=== PATIENT | female | born 1965 | race Caucasian/White ===

== ENCOUNTER 2019-10-19 10:05 | Outpatient (REF) | payer BC, SELFPAY ==
[2019-10-19 21:58] LABS: Anion Gap 9.4 mmol/L (3-11); BUN 16 mg/dL (7-18); CO2 26.6 mmol/L (21.0-32.0); CREATININE 1.11 mg/dL (0.55-1.02); Calcium 9.5 mg/dL (8.5-10.1); Chloride 106 mmol/L (98-107); Estimated GFR 50.85 (mL/min/1.73m2); Glucose 107 mg/dL (74-106); Magnesium 1.9 mg/dL (1.8-2.4); Potassium 4.3 mmol/L (3.5-5.1); Sodium 142 mmol/L (136-145)
[2019-10-19 23:28] LABS: Lithium 0.44 mmol/L (0.60-1.20)
[2019-10-21 19:04] LABS: TSH (W/Ref FT4) 0.92 uIU/mL (0.36-3.74)
== END 2019-10-19 10:25 ==
LOC: NCHCN 10:05
PROVIDERS: PCP Family Medicine; Visit Provider Nurse Practitioner Family
DX: N18.9 Chronic kidney disease, unspecified (principal); F31.9 Bipolar disorder, unspecified; Z51.81 Encounter for therapeutic drug level monitoring; Z13.29 Encounter for screening for other suspected endocrine disorder
CPT/HCPCS: 80048; 80178; 83735; 84443

== ENCOUNTER 2020-01-25 10:30 | Outpatient (REF) | payer BC, SELFPAY ==
[2020-01-25 21:33] LABS: Abs Immature Grans 0.01 k/cumm (0.0-0.09); Absolute Basophil Count 0.02 k/cumm (0.0-0.2); Absolute Eosinophil Count 0.17 k/cumm (0.0-0.7); Absolute Lymphocyte Count 1.73 k/cumm (1.2-3.4); Absolute Monocyte Count 0.45 k/cumm (0.11-0.7); Absolute Neutrophil Count 2.97 k/cumm (1.2-6.7); Basophils % 0.4; Eosinophils % 3.2; HCT 38.7 % (36.0-46.0); Immature Grans % 0.2 %; Lymphocytes % 32.3; Mean Corp. HGB Concentration 33.6 g/dL (32.0-36.0); Mean Corpuscular Hemoglobin 30.5 pg (27.0-33.0); Mean Corpuscular Volume 90.8 fL (80-95); Mean Platelet Volume 10.8 fL (8.0-11.0); Monocytes % 8.4; Neutrophils % 55.5; Platelet Count 238 x1000/uL (130-400); RBC 4.26 m/cumm (4.00-5.20); RBC Distribution Width 12.7 % (11.7-14.6); White Blood Cell Count 5.35 k/cumm (4.4-10.8)
[2020-01-25 21:58] LABS: Lithium 0.37 mmol/L (0.60-1.20)
[2020-01-25 22:01] LABS: Albumin 3.7 g/dL (3.4-5.0); Anion Gap 9.3 mmol/L (3-11); BUN 17 mg/dL (7-18); CO2 26.7 mmol/L (21.0-32.0); CREATININE 1.11 mg/dL (0.55-1.02); Calcium 8.4 mg/dL (8.5-10.1); Chloride 106 mmol/L (98-107); Estimated GFR 50.85 (mL/min/1.73m2); Glucose 84 mg/dL (74-106); PHOSPHORUS 3.6 mg/dL (2.6-4.7); Sodium 142 mmol/L (136-145)
== END 2020-01-25 10:50 ==
LOC: NCHCN 10:30
PROVIDERS: PCP Family Medicine; Visit Provider Nurse Practitioner Family
DX: F31.74 Bipolar disorder, in full remission, most recent episode manic (principal); R94.4 Abnormal results of kidney function studies; Z51.81 Encounter for therapeutic drug level monitoring
CPT/HCPCS: 80069; 80178; 85025

== ENCOUNTER 2022-01-03 11:08 | Outpatient (REF) | payer BC, SELFPAY ==
--- NOTE | 2022-01-03 14:00 | PAPFT_PTH ---
PATIENT: Jenn Borrero LOC: [facility] U#:[id number] AGE/SX: 56/F ROOM: RE01/03/[address]: Medina Palafox : 1965 BED: DIS: 01/03/2022 SPEC #: [id number] RECD: 01/04/22 17:01 STATUS: SONYA WALSH #: [id number] JAMES: 01/03/22 14:[address]: Medina Palafox DEPT: [facility] Cytology RECD BY: Nae Allen ENTERED: 01/04/22 17:02 SP TYPE: PAPFT OTHR DR: Ana Laura Rodriguez Tissues: 1 - CX/ENDOCX FOR PAP SMEARS Procedures: PAP THIN PREP/UVM Screening HPV DNA PROBE Comments: [id number]
== END 2022-01-03 11:09 | disposition home or self-care (01) ==
LOC: LBN 11:08
PROVIDERS: PCP Family Medicine; Visit Provider Naturopath
DX: Z12.4 Encounter for screening for malignant neoplasm of cervix (principal); Z11.51 Encounter for screening for human papillomavirus (HPV)
CPT/HCPCS: 88142; 87624

== ENCOUNTER 2023-02-26 10:40 | Outpatient (REF) | payer BC, SELFPAY | END 2023-02-26 10:41 | disposition home or self-care (01) | LOC: LBN 10:40 | PROVIDERS: PCP Family Medicine; Visit Provider Obstetrics & Gynecology | DX: R30.0 Dysuria (principal) | CPT/HCPCS: 87086 ==

== ENCOUNTER 2023-08-05 13:21 | Outpatient (REF) | payer BC, SELFPAY ==
[2023-08-05 15:47] LABS: Abs Immature Grans 0.01 10^3/uL (0.0-0.06); Absolute Basophil Count 0.05 10^3/uL (0.0-0.2); Absolute Eosinophil Count 0.13 10^3/uL (0.0-0.7); Absolute Lymphocyte Count 1.32 10^3/uL (1.2-3.4); Absolute Monocyte Count 0.34 10^3/uL (0.1-0.8); Absolute Neutrophil Count 3.59 10^3/uL (1.2-6.7); Basophils % 0.9; Eosinophils % 2.4; HCT 37.1 % (36.0-46.0); HGB 11.8 g/dL (11.2-15.7); Immature Grans % 0.2; Lymphocytes % 24.3; MCH 29.4 pg (27.0-33.0); MCHC 31.8 % (32.0-36.0); MCV 93 fL (80-95); MPV 10.4 fL (8.0-11.0); Monocytes % 6.3; Neutrophils % 65.9; Platelet Count 255 10^3/uL (130-400); RBC 4.01 10^6/uL (3.93-5.22); RDW 12.4 % (11.7-14.6); RDW-SD 42.5 fL; WBC 5.44 10^3/uL (4.4-10.8)
[2023-08-05 16:13] LABS: ALT 30 U/L (14-59); AST 26 U/L (15-37); Albumin 3.8 g/dL (3.4-5.0); Alkaline Phosphatase 94 U/L (46-116); Anion Gap 5.3 mmol/L (3-11); BUN 16 mg/dL (7-18); Bilirubin, Total 0.4 mg/dL (0.2-1.0); CO2 28.7 mmol/L (21.0-32.0); Calcium 9.9 mg/dL (8.5-10.1); Calculated LDL 125 mg/dL (<100); Chloride 103 mmol/L (98-107); Cholesterol 226 mg/dL (<200); Estimated GFR 64.49 (mL/min/1.73m2); Glucose 93 mg/dL (74-106); HDL Cholesterol 88 mg/dL (40-60); Potassium 4.6 mmol/L (3.5-5.1); Sodium 137 mmol/L (136-145); TSH (W/Ref FT4) 0.79 uIU/mL (0.36-3.74); Total Protein 7.5 g/dL (6.4-8.2); Triglyceride 66 mg/dL (<150)
[2023-08-05 16:14] LABS: Lithium 0.3 mmol/l (0.6-1.2)
== END 2023-08-05 13:22 | disposition home or self-care (01) ==
LOC: NCHCN 13:21
PROVIDERS: PCP Family Medicine; Visit Provider Family Medicine
DX: F31.9 Bipolar disorder, unspecified (principal); R53.83 Other fatigue; Z51.81 Encounter for therapeutic drug level monitoring; Z79.899 Other long term (current) drug therapy; R79.89 Other specified abnormal findings of blood chemistry
CPT/HCPCS: 80053; 80061; 80178; 84443; 85025

== ENCOUNTER 2024-02-11 14:38 | Outpatient (REF) | payer BC, SELFPAY ==
[2024-02-11 15:42] LABS: Lithium 0.7 mmol/l (0.6-1.2)
== END 2024-02-11 14:39 | disposition home or self-care (01) ==
LOC: NCHCN 14:38
PROVIDERS: PCP Family Medicine; Referring Provider Family Medicine; Visit Provider Family Medicine
DX: F31.9 Bipolar disorder, unspecified (principal); Z79.899 Other long term (current) drug therapy
CPT/HCPCS: 80053; 80061; 82306; 80178; 82607; 83036

== ENCOUNTER 2024-03-09 10:28 | Outpatient (REF) | payer BC, SELFPAY ==
[2024-03-09 15:25] LABS: Anion Gap 8.7 mmol/L (3-11); BUN 20 mg/dL (7-18); CO2 25.3 mmol/L (21.0-32.0); CREATININE 1.2 mg/dL (0.55-1.02); Calcium 9.9 mg/dL (8.5-10.1); Chloride 104 mmol/L (98-107); Estimated GFR 51.82 (mL/min/1.73m2); Glucose 90 mg/dL (74-106); Potassium 3.9 mmol/L (3.5-5.1); Sodium 138 mmol/L (136-145)
== END 2024-03-09 10:29 | disposition home or self-care (01) ==
LOC: NCHCN 10:28
PROVIDERS: PCP Family Medicine; Visit Provider Family Medicine
DX: N18.9 Chronic kidney disease, unspecified (principal)
CPT/HCPCS: 80048

== ENCOUNTER 2024-04-08 15:46 | Outpatient (REF) | payer BC, SELFPAY ==
[2024-04-08 21:27] LABS: Albumin 3.8 g/dL (3.4-5.0); Anion Gap 9.7 mmol/L (3-11); BUN 29 mg/dL (7-18); CO2 25.3 mmol/L (21.0-32.0); CREATININE 1.1 mg/dL (0.55-1.02); Calcium 9.4 mg/dL (8.5-10.1); Chloride 107 mmol/L (98-107); Estimated GFR 57.52 (mL/min/1.73m2); Glucose 95 mg/dL (74-106); Potassium 4.1 mmol/L (3.5-5.1); Sodium 142 mmol/L (136-145)
[2024-04-08 22:04] LABS: PHOSPHORUS 2.9 mg/dL (2.6-4.7)
== END 2024-04-08 15:47 | disposition home or self-care (01) ==
LOC: NCHCN 15:46
PROVIDERS: PCP Family Medicine; Visit Provider Family Medicine
DX: F31.9 Bipolar disorder, unspecified (principal)
CPT/HCPCS: 80069

== ENCOUNTER 2024-04-20 08:32 | Outpatient (REF) | payer BC, SELFPAY ==
[2024-04-20 14:28] LABS: Lithium 0.4 mmol/L (0.6-1.2)
[2024-04-20 14:31] LABS: BUN 20 mg/dL (7-18); CREATININE 1.2 mg/dL (0.55-1.02); Chloride 105 mmol/L (98-107); Estimated GFR 51.82 (mL/min/1.73m2); Glucose 93 mg/dL (74-106); Potassium 3.9 mmol/L (3.5-5.1); Sodium 141 mmol/L (136-145)
== END 2024-04-20 08:33 | disposition home or self-care (01) ==
LOC: NCHCN 08:32
PROVIDERS: PCP Family Medicine; Visit Provider Family Medicine
DX: Z51.81 Encounter for therapeutic drug level monitoring (principal); N18.9 Chronic kidney disease, unspecified
CPT/HCPCS: 80048; 80178

== ENCOUNTER 2024-06-11 22:10 | Outpatient (REF) | payer BC, SELFPAY ==
[2024-06-11 15:06] LABS: Lithium 0.5 mmol/L (0.6-1.2)
[2024-06-11 15:18] LABS: Anion Gap 8.2 mmol/L (3-11); BUN 15 mg/dL (7-18); CO2 27.8 mmol/L (21.0-32.0); CREATININE 1.2 mg/dL (0.55-1.02); Calcium 10.1 mg/dL (8.5-10.1); Chloride 108 mmol/L (98-107); Estimated GFR 51.82 (mL/min/1.73m2); Glucose 98 mg/dL (74-106); Sodium 144 mmol/L (136-145)
== END 2024-06-11 22:11 | disposition home or self-care (01) ==
LOC: NCHCN 22:10
PROVIDERS: PCP Family Medicine; Visit Provider Family Medicine
DX: F31.9 Bipolar disorder, unspecified (principal); R53.83 Other fatigue; N18.9 Chronic kidney disease, unspecified
CPT/HCPCS: 80048; 80178; 84443

== ENCOUNTER 2024-07-08 21:11 | Outpatient (REF) | payer BC, SELFPAY ==
[2024-07-08 21:43] LABS: Anion Gap 7.4 mmol/L (3-11); BUN 19 mg/dL (7-18); CO2 29.6 mmol/L (21.0-32.0); CREATININE 1.3 mg/dL (0.55-1.02); Calcium 10.4 mg/dL (8.5-10.1); Chloride 106 mmol/L (98-107); Estimated GFR 47.08 (mL/min/1.73m2); Glucose 63 mg/dL (74-106); Potassium 3.9 mmol/L (3.5-5.1); Sodium 143 mmol/L (136-145)
[2024-07-08 21:49] LABS: Lithium 0.7 mmol/L (0.6-1.2)
== END 2024-07-08 21:12 | disposition home or self-care (01) ==
LOC: NCHCN 21:11
PROVIDERS: PCP Family Medicine; Visit Provider Family Medicine
DX: F31.9 Bipolar disorder, unspecified (principal); Z79.899 Other long term (current) drug therapy; Z51.81 Encounter for therapeutic drug level monitoring
CPT/HCPCS: 80048; 80178

== ENCOUNTER 2024-07-26 12:24 | Outpatient (REF) | payer BC, SELFPAY ==
[2024-07-26 14:45] LABS: Anion Gap 6.8 mmol/L (3-11); BUN 15 mg/dL (7-18); CO2 27.2 mmol/L (21.0-32.0); CREATININE 1.3 mg/dL (0.55-1.02); Calcium 9.9 mg/dL (8.5-10.1); Chloride 107 mmol/L (98-107); Estimated GFR 46.78 (mL/min/1.73m2); Glucose 98 mg/dL (74-106); Potassium 3.9 mmol/L (3.5-5.1); Sodium 141 mmol/L (136-145)
== END 2024-07-26 12:25 | disposition home or self-care (01) ==
LOC: NCHCN 12:24
PROVIDERS: PCP Family Medicine; Visit Provider Family Medicine
DX: N18.9 Chronic kidney disease, unspecified (principal)
CPT/HCPCS: 80048

== ENCOUNTER 2024-11-17 12:48 | Outpatient (REF) | payer BC, SELFPAY ==
--- OUTSIDE RECORDS SUMMARY | 2024-11-17 12:49 | XMS_ITS | Clinical Summary ---
Author Organization [facility] Address [facility] [place] [address] Care Team Providers Care Patrol Sergeant [employer] Name Role Phone Maria Luisa Valerio MD Primary Care Provider [phone] Allergies Active Allergy Reactions Criticality Noted Date Comments Latex, Natural Rubber 06/26/2023 Medications Medication Sig Dispensed Refills Start Date End Date Status lithium 300 mg capsule Take 300 mg by mouth once. Once a day Active cholecalciferol, Vitamin D3, (Vitamin D3) 50 mcg (2,000 unit) tablet Take by mouth daily. Active magnesium 250 mg tablet Take by mouth daily as needed. Active lactobacillus rhamnosus, GG, (CULTURELLE) 10 billion cell Capsule Take 1 capsule by mouth daily. Active ibuprofen (Advil) 600 mg tablet Take 1 tablet by mouth every 6 hours as needed for Pain. 30 tablet 12 07/09/2023 Active cyclobenzaprine (Flexeril) 5 mg tablet Take 1 tablet by mouth 3 times daily as needed for Muscle spasms. 5 tablet 07/10/2023 Active marijuana cigarette - medicinal use Inhale into the lungs. Active Active Problems Problem Noted Date Diagnosed Date Prolapse of female pelvic organs 07/09/2023 Uterovaginal prolapse, incomplete 04/14/2023 Bipolar disorder 04/14/2023 Arthritis 04/14/2023 Overview (04/14/2023): Back, neck, fingers Family History Medical History Relation Comments Alcohol Use Disorder Father Cerebrovascular Accident Father Heart Disease Father Hypertension Father Mental Illness Father Arthritis Mother Hyperlipidemia Mother Type 2 Diabetes Paternal Grandmother Hypertension Sister 1 Relation Status Comments Father (Age 68) Mother Alive Paternal Grandmother Sister 1 Sister 2 Alive Sister 3 Alive Social History Tobacco Use Types Packs/Day Years Used Date Smoking Tobacco: Never Smokeless Tobacco: Never Tobacco Cessation:Counseling Given: Not Answered Comments:Smokes marijuana as sleep aid Alcohol Use Standard Drinks/Week Comments Not Currently 0 (1 standard drink = 0.6 oz pur e alcohol) DH IPV Inpatient Questions Answer Date Recorded Does Anyone Try to Keep You From Having Contact with Others or Doing Things Outside Your Home? no 07/09/2023 Feels Threatened by Someone no 08/2023 Feels Unsafe at Home or Work/School no 07/09/2023 Physical Signs of Abuse Present no 07/09/2023 Sex and Gender Information Value Date Recorded Sex Assigned at Not on file Gender Identity Not on file Sexual Orientation Not on file Last Filed Vital Signs Vital Sign Reading Time Taken Comments Blood Pressure 126/83 08/21/2023 11:11 AM EDT Pulse 76 08/21/2023 11:11 AM EDT Temperature 36.1 ??C (97 ??F) 08/21/2023 11:11 AM EDT Respiratory Rate 16 07/10/2023 7:23 AM EDT Oxygen Saturation 100% 08/21/2023 11:11 AM EDT Inhaled Oxygen Concentration - - Weight 69.1 kg (152 lb 6.4 oz) 07/10/2023 6:00 A M EDT Height 160 cm (5' 2.99) 07/09/2023 1:14 PM EDT Body Mass Index 27 07/09/2023 1:14 PM EDT Plan of Treatment Health Maintenance Due Date Last Done Comments CT Colonography 1965 Colonoscopy 1965 Colorectal Cancer Screening 1965 FIT DNA 1965 FIT 1965 Sigmoidoscopy (10 year) with FIT yearly 1965 Sigmoidoscopy 1965 HIV screen 1981 Hepatitis C Screening 1981 Tetanus/Diphtheria/Pertussis Vaccines (1 - Tdap) 07/12 HPV test 1993 PAP Smear 1993 Breast Cancer Share Decision Needed 2003 Breast Cancer screening 2003 Diabetes Screening (HgbA1C or Glucose) 2003 Zoster vaccine (1 of 2) 2013 Advance Directive 2018 Covid-19 Vaccine ( - 2024-25 season) 2024 Influenza (Flu) vaccine (1 o f 1 - Influenza standard series) 08/01/2024 Advance Directives * Attempt Cardiopulmonary Resuscitation - Inpatient (Latest Code Status on File) Date Activated Date Inactivated Comments 07/09/2023 7:02 PM 07/10/2023 12:39 PM Question Answer Comments Code Status decision made by: Patient Care Teams Patrol Sergeant Sheriff[employer] Relationship Specialty Start Date End Date Maria Luisa Valerio MD [address] [place] [address] PCP - General Family Medicine 03/24/23
--- OUTSIDE RECORDS SUMMARY | 2024-11-17 12:49 | XMS_ITS | Encounter Summary ---
Author Organization [facility] Address [facility] [place] [address] Care Team Providers Care Shop Foreman Name Role Phone Maria Luisa Valerio MD Primary Care Provider [phone] Reason for Visit * Reason Comments Post Op Encounter Details Date Type Department Care Team (Late st Contact Info) Description 08/21/2023 11:20 AM EDT Office Visit Obstetrics [place] [address] Maya Lux APRN [facility] [place] [address] Post-operative state Social History Tobacco Use Types Packs/Day Years Used Date Smoking Tobacco: Never Smokeless Tobacco: Never Comments:Smokes marijuana as sleep aid Alcohol Use Standard Drinks/Week Comments Not Currently 0 (1 standard drink = 0.6 oz pur e alcohol) [facility] Inpatient Questions Answer Date Recorded Does Anyone [...] on file Sexual Orientation Not on file documented as of this encounter Last Filed Vital Signs Vital Sign Reading Time Taken Comments Blood Pressure 126/83 08/21/2023 11:11 AM EDT Pulse 76 08/21/2023 11:11 AM EDT Temperature 36.1 ??C (97 ??F) 08/21/2023 11:11 AM EDT Respiratory Rate - - Oxygen Saturation 100% 08/21/2023 11:11 AM EDT Inhaled Oxygen Concentration - - Weight - - Height - - Body Mass Index - - documented in this encounter Progress Notes * Maya Lux, BAIL BOND AGENT - 08/21/2023 11:20 AM EDT Female Pelvic Medicine and Reconstructive Surgery Post-Operative Visit Patient Active Problem List Diagnosis Date Noted Prolapse of female pelvic organs 07/09/2023 Uterovaginal prolapse, incomplete 04/14/2023 Bipolar disorder 04/14/2023 Arthritis 04/14/2023 Date of visit: 08/21/2023 Patient name: Jenn Borrero Date of surgery: 07/09/23 Procedure: Vaginal hysterectomy, bilateral salpingectomy; bilateral uterosacral ligament suspension, anterior / posterior colporrhaphy Surgeon: Dr. Archibald Pathology: Uterus and bilateral fallopian tubes (hysterectomy and bilateral salpingectomy for prolapse): 1. Uterine leiomyomas. 2. Benign inactive endometrium. 3. Benign cervix with squamous metaplasia and Nabothian cysts. 4. Bilateral benign fallopian tubes. Findings: Uterovaginal prolapse, stage 3. Normal uterus, adnexae. Adhesion at right lower uterus. Cystourethroscopy with patent ureteral orifices bilaterally, free spill of orange dye. Ureters in orthotopic position. Normal bladder, urethral mucosa. Subjective: Jenn Borrero is s/p the above procedures. Since surgery, reports she had gas pain for the first few days post-op but now feeling like everything is hunky-dory Patient has been tolerating a regular diet, denies nausea and vomiting, and has been afebrile sincesurgery. Since surgery, reports: None x Continued vaginal bleeding New pelvic related pain Abnormal vaginal discharge Burning with urination Blood in urine New prolapse symptoms since surgery Other Pain She reports no pain. Bladder Function Number of daytime voids: improved, depends on fluid intake, has some frequency but feels this is related to tea drinking Number of nocturia events: twice Urinary incontinence since surgery (y/n): for the first 1.5 weeks but then resolved If yes, [place] Incontinence Severity Index: How often do you experience urinary leakage? 0. Never 1. Less than once a month 2. A few times a month 3. A few times a week 4. Every day and/or night Value 0 How much urine do you lose each time? 0. None 1. Drops 2. Small Splashes 3. More Value 0 The Severity Index is the product of the two questions 0 - NONE 1-2 Slight 3-6 Moderate 8-9 Severe 12 Very severe SCORE: 0 If yes, leaks with: Event Presence Event Presence NONE x [place] Walking Cold Weather Running Anticipation of going to the lavatory Cough/Sneeze First morning void Lifting Running water Laughing Other Voiding Dysfunction: Symptom Presence NONE x Straining to empty Incomplete emptying Weak stream Feeling the urge to void after voiding Dribbling Changed in position Difficulty initiating a stream Bowel Function How often do you have bowel movements? Once daily Any new defecatory problems since surgery?: no - bowel movements are much improved since surgery OBJECTIVE: There were no vitals taken for this visit. The [employer] Bladder Scanner/D-Sight Bladder Scanner was used to obtain a postvoid residual to further delineate urinary symptoms. After the patient voided, 25 mL was measured as a postvoid residual. Urine dipstick shows positive for leukocytes, red blood cells. A mixer attendant is present for the examination. General: normal appearing female, pleasant mood, normal speech Abdomen: Abdomen soft, non-tender, bowel sounds normal. Back: Non-tender, without costovertebral angle or paraspinal tenderness Pelvic: Cough stress test (empty supine): neg External Genitalia: Vulva, Worley's and Bartholin glands normal, urethra without tenderness or mass Vagina: smooth, pink, suture present at apex, well approximated Discharge?: scant Cervix: surgically absent Bimanual (uterus/adnexa): no masses or tenderness POP Q Measurements: Aa -2.5 Ba -2.5 C -7 GH 2.5/2.5 PB 5/5 TVL 7.5 Ap -2.5 Bp -2.5 D X Impression: Jenn Borrero is recovering well s/p Vaginal hysterectomy, bilateral salpingectomy; bilateral uterosacral ligament suspension, anterior / posterior colporrhaphy 5RBC on urine micro at NPV, unremarkable cysto intra-op, plan UA w/micro in ~4months Plan: Activity: slowly return to activity as tolerated without restrictions Pelvic floor exercises 10 reps 2-3 times daily to maintain pelvic floor strength Return in 12 months / PRN to reassess Maya Lux APRN Division of Female Pelvic Medicine and Reconstructive Surgery * John Archibald MD - 08/21/2023 11:20 AM EDT I met with Ms. Borrero at the time of her post-operative visit with Maya Lux APRN. She is doing well overall and agrees to return in 1 year or PRN earlier if recurrent symptoms. JOHN ARCHIBALD MD documented in this encounter Plan of Treatment Not on file documented as of this encounter Procedures Procedure Name Priority Date/Time Associated Diagnosis Comments BLADDER SCANNER Routine 08/21/2023 Post-operative state POCT URINE DIPSTICK Routine 08/21/2023 Post-operative state documented in this encounter Results * Bladder Scanner (08/21/2023) Pathologist [facility] Bladder Scan (mL) 25 mL Maya Lux APRN URO PROC W/O RFL ORD ERABLES * POCT urine dipstick (08/21/2023) Pathologist [facility] POC Sp [place] 1.010 1.002 - 1.030 POC pH, UA 5.0 5.0 - 8.5 POC Leuk, UA 2+ Negative - Negative POC Nitrite, UA Neg. Negative - Negative POC Protein, UA Trace Negative - Negative mg/dL POC Glucose, UA Norm. Normal - Normal mg/dL POC Ketone, UA Neg. Negative - Negative POC Urobil, UA Norm. 0.2 - 1.0 mg/dL POC Bili, UA Neg. Negative - Negative POC Blood, UA About 50 Negative - Negative prashanth/uL Maya Lux APRN POINT OF CARE TEST O RDERABLES documented in this encounter Visit Diagnoses Diagnosis Post-operative state Other postprocedural status documented in this encounter Care Teams Shop Foreman Relationship Specialty Start Date End Date Maria Luisa Valerio MD [address] [place] [address] PCP - General Family Medicine 03/24/23 documented as of this encounter
--- OUTSIDE RECORDS SUMMARY | 2024-11-17 12:49 | XMS_ITS | Encounter Summary ---
Author Organization [facility] [place] [address] Care Team Providers Care Payroll Consultant Name Role Phone Maria Luisa Valerio MD Primary Care Provider [phone] Encounter Details Date Type Department Care Team (Latest Contact Info) Description 08/21/2023 Travel Social History Tobacco Use Types Packs/Day Years Used Date Smoking Tobacco: Never Smokeless Tobacco: Never Comments:Smokes marijuana as sleep aid Alcohol Use Standard Drinks/Week Comments Not Currently 0 (1 standard drink = 0.6 oz pur e alcohol) IPV Inpatient Questions Answer Date Recorded Does [...] on file documented as of this encounter Plan of Treatment Not on file documented as of this encounter Visit Diagnoses Not on filedocumented in this encounter Care Teams Payroll Consultant Relationship Specialty Start Date End Date Maria Luisa Valerio MD [address] [place] [address] PCP - General Family Medicine 03/24/23 documented as of this encounter
--- OUTSIDE RECORDS SUMMARY | 2024-11-17 12:49 | XMS_ITS | Encounter Summary ---
Author Organization [facility] [place] [address] Care Team Providers Care Coupon And Bond Collection Clerk Name Role Phone Maria Luisa Valerio MD Primary Care Provider [phone] Reason for Visit * Auth/Cert (Routine) Specialty Diagnoses / Procedures Referred By Lisa alvarez Referred To Contact Diagnoses Incomplete uterovaginal prolapse Uterovaginal prolapse, stage 3. Procedures PRO VAG HYST, RMV TUBE/OVARY PRO REVAGINAL PROLAPSE, UTEROSACRAL PRO COMBINED ANT/POST COLPORRHAPHY PRO SLING OPER STRES INCONTINENCE HYSTERECTOMY, VAGINAL, REMOVAL TUBE(S) & OR OVARY(S) (WRVU 15.94) COLPOPEXY, VAGINAL, INTRAPERITONEAL APPROACH (WRVU 11.66) COLPORRHAPHY ANTERIOR-POSTERIOR; INC CYSTOURETHROSCOPY (WRVU 13.25) URETHRAL SUSPENSION, SLING\FASCIA OR SYNTHETIC (WRVU 12.13) Maciej Arguello MD [facility] [address] [facility] Referral ID Status Reason Start Date Expiration Date Visits Re quested Visits Authorized [id number] 1 1 Encounter Details Date Type Department Care Team (Latest Contact Info) Description 07/09/2023 12:38 PM EDT - 07/10/2023 10:15 AM EDT Hospital Encounter [place] [address] Maciej Arguello MD [facility] [place] [address] Uterovaginal prolapse, incomplete Discharge Disposition: Home Social History Tobacco Use Types Packs/Day Years [...] Sign Reading Time Taken Comments Blood Pressure 130/84 07/10/2023 7:23 AM EDT Pulse 58 07/09/2023 8:15 PM EDT Temperature 36.9 ??C (98.4 ??F) 07/10/2023 7:23 AM ED T Respiratory Rate 16 07/10/2023 7:23 AM EDT Oxygen Saturation 99% 07/10/2023 7:23 AM EDT Inhaled Oxygen Concentration - - Weight 69.1 kg (152 lb 6.4 oz) 07/10/2023 6:00 A M EDT Height 160 cm (5' 2.99) 07/09/2023 1:14 PM EDT Body Mass Index 27 07/09/2023 1:14 PM EDT documented in this encounter Discharge Summaries * Mirna Herr MD - 07/10/2023 6:30 AM EDT Discharge Summary Patient Name: Jenn Borrero Patient Age: 57 y.o. Language: Frisian Race: White Ethnicity: Not nor Admit date: 07/09/2023 Discharge date and time: 07/10/23 Attending Physician: Maciej Arguello MD Discharge Physician: Maciej Arguello MD Follow-up Recommendations for Providers: Future Appointments Date Time Provider Department Center 08/21/2023 11:00 AM NurseJuan II RN [facility] OB 5L [facility] 08/21/2023 11:20 AM Maya Lux APRN [address] Inpatient Provider Contact Information: Please call our office at [phone] with any problems or concerns. Discharge Diagnoses (Hospital Problems) and Secondary Diagnoses (Chronic Problems): Active Hospital Problems Diagnosis Uterovaginal prolapse, incomplete Prolapse of female pelvic organs Resolved Hospital Problems No resolved problems to display. Active Non-Hospital Problems Diagnosis Bipolar disorder Arthritis Operations/Major Procedures: TVH, BS, USLS, cystoscopy, repair of cystocele and rectocele History of Presentation: Ms. Borrero is a 57 y.o. old para 2 woman who initially presents for evaluation and assessment of vaginal prolapse of 10 years' duration. She notes it is much more uncomfortable when walking, and standing upright. She tried a pessary and had a lot of vaginal discharge and found it uncomfortable. Shepresents today for vaginal hysterectomy with bilateral salpingectomy; bilateral uterosacral ligament suspension, anterior / posterior colporrhaphy Hospital Course: Jenn came in through same-day surgery. Her procedure was uncomplicated, findings were Uterovaginal prolapse, stage 3. Normal uterus, adnexae. Adhesion at right lower uterus. Cystourethroscopy with patent ureteral orifices bilaterally, free spill of orange dye. Ureters in orthotopic position. Normal bladder, urethral mucosa. EBL was 150mL. Patient stayed overnight in the hospital due to late hour of surgery and pain management. Morning of discharge, she passed her lincoln backfill trial and thecatheter was removed. She is using tylenol, ibuprofen and flexeril for pain, declines opioids. Passing all post- operative milestones appropriately on day of discharge. Follow up in clinic booked as above. Vital signs at Discharge: BP: (!) 152/92, Heart Rate: 58, Temp: 36.8 ??C (98.2 ??F), Resp: 14, BMI (Calculated): 26.91 Height: 160 cm (5' 2.99) (07/09/23 1314) Weight: 69.1 kg (152 lb 6.4 oz) (07/10/23 0600) Functional and Cognitive status: Stable and at baseline Important Studies and Lab Data: Labs: Last wbc, hgb, hct plt No results for input(s): WBC, HGB, HCT in the last 72 hours. Invalid input(s): PLT Discharge Conditions/Prognosis: Stable Discharge to: Home Updated Allergies/ADRs: Allergies Allergen Reactions Latex, Natural Rubber Immunizations Given this Hospitalization: There is no immunization history on file for this patient. Discharge Medications: Your Medications New Medications Dose Details acetaminophen 325 mg tablet Commonly known as: Tylenol Take 2 tablets by mouth every 4 hours as needed for Pain. 650 mg Quantity: 30 tablet Refills: 1 cyclobenzaprine 5 mg tablet Commonly known as: Flexeril Take 1 tablet by mouth 3 times daily as needed for Muscle spasms. 5 mg Quantity: 5 tablet Refills: 0 ibuprofen 600 mg tablet Commonly known as: Advil Take 1 tablet by mouth every 6 hours as needed for Pain. 600 mg Quantity: 30 tablet Refills: 12 polyethylene glycoL 17 gram/dose Powder Commonly known as: Miralax Take 17 g by mouth daily. 17 g Quantity: 255 g Refills: 0 senna-docusate 8.6-50 mg Tablet Commonly known as: Pericolace Take 1 tablet by mouth daily. 1 tablet Quantity: 60 tablet Refills: 11 Continued medications, unchanged Dose Details cholecalciferol (Vitamin D3) 50 mcg (2,000 unit) tablet Commonly known as: Vitamin D3 Take by mouth. Refills: 0 lactobacillus rhamnosus (GG) 10 billion cell Capsule Commonly known as: CULTURELLE Take 1 capsule by mouth daily. 1 capsule Refills: 0 lithium 300 mg capsule Take 300 mg by mouth once. Once a day 300 mg Refills: 0 magnesium 250 mg tablet Take by mouth. Refills: 0 Smoking Status at Discharge: Social History Tobacco Use Smoking Status Never Smokeless Tobacco Never Tobacco Comments Smokes marijuana as sleep aid Instructions Given to Patient at Discharge: Patient Instructions PATIENT DISCHARGE INSTRUCTIONS [facility] [employer] Department: Follow Up Appointment: Please call the above number to schedule a follow up appointment in clinic if you do not already have one scheduled when you leave the hospital. Future Appointments Date Time Provider Department Center 08/21/2023 11:00 AM NurseJuan II, RN [facility] 08/21/2023 11:20 AM Maya Lux APRN [address] Call your doctor if you develop: --A fever over 101 degrees --Severe pain --Heavy vaginal bleeding --Increasing pain, redness, or discharge at your incision --It is normal to have light spotting from the vagina for up to 6 weeks following hysterectomy Activity level: No heavy lifting, pushing or pulling for 6 weeks, nothing greater than 10lbs. No sexual intercourse, no tampons, nothing in the vagina for 8 weeks. Diet: You may resume your regular diet. Be sure you drink plenty of fluids. Please use celine-colace (or colace) 1-2 tablets twice daily for the entire time that you are taking pain medication to keep your bowel movements soft and regular. If you are constipated or have not had a bowel movement in 3 days, please use milk of magnesia (or miralax) as directed over the counter. Driving: Do not drive until you are off of all narcotic medications and you are not feeling pain; usually about 2 weeks. Shower/Bath: Showering is fine. No swimming or soaking for 4-6 weeks. Pain Medication: Pain medications include ibuprofen (Advil/Motrin), acetaminophen (Tylenol). Please use ibuprofen 600 mg every 6 hours with food around the clock for the next several days and then after that use it only as needed. You may take Tylenol (acetaminophen) over the counter as prescribed, 650mg every 6 hours as needed,for the first two days, you may want to schedule this, every 6 hours. Do not exceed 3000mg of Tylenol in any 24 hour period. You can take ibuprofen and Tylenol at the same time as the two medicationswork differently. General Instructions None Future Appointments and Orders Future Appointments and Orders Future Appointments Provider Department Dept Phone 08/21/2023 11:00 AM NurseJuan II, RN Obstetrics and Gynecology at [facility] Arrive at: After School Program Coordinator Area [phone] 08/21/2023 11:20 AM Maya Lux APRN Obstetrics and Gynecology at [facility] Arrive at: After School Program Coordinator Area 5L [phone] Future Orders Complete By Expires Discontinue IV or Saline Lock [[id number] Custom] As directed Process Instructions: Scheduling Instructions: Comments: IV or saline lock when patient discharged. Questions: Discharge References/Attachments None Provider Contact Information: Maria Luisa Valerio MD [phone] documented in this encounter Discharge Instructions * Patient Instructions* Ken Mcmullen MD - 07/10/2023 5:57 AM EDT PATIENT DISCHARGE INSTRUCTIONS [facility] [employer] Department: Follow Up Appointment: Please call the above number to schedule a follow up appointment in clinic if you do not already have one scheduled when you leave the hospital. Future Appointments Date Time Provider Department Center 08/21/2023 11:00 AM Nurse, Juan PAUL RN [facility] OB [facility] 08/21/2023 11:20 AM Maya Lux APRN [facility] OB [facility] Call your doctor if you develop: --A fever over 101 degrees --Severe pain --Heavy vaginal bleeding --Increasing pain, redness, or discharge at your incision --It is normal to have light spotting from the vagina for up to 6 weeks following hysterectomy Activity level: No heavy lifting, pushing or pulling for 6 weeks, nothing greater than 10lbs. No sexual intercourse, no tampons, nothing in the vagina for 8 weeks. Diet: You may resume your regular diet. Be sure you drink plenty of fluids. Please use celine-colace (or colace) 1-2 tablets twice daily for the entire time that you are taking pain medication to keep your bowel movements soft and regular. If you are constipated or have not had a bowel movement in 3 days, please use milk of magnesia (or miralax) as directed over the counter. Driving: Do not drive until you are off of all narcotic medications and you are not feeling pain; usually about 2 weeks. Shower/Bath: Showering is fine. No swimming or soaking for 4-6 weeks. Pain Medication: Pain medications include ibuprofen (Advil/Motrin), acetaminophen (Tylenol). Please use ibuprofen 600 mg every 6 hours with food around the clock for the next several days and then after that use it only as needed. You may take Tylenol (acetaminophen) over the counter as prescribed, 650mg every 6 hours as needed,for the first two days, you may want to schedule this, every 6 hours. Do not exceed 3000mg of Tylenol in any 24 hour period. You can take ibuprofen and Tylenol at the same time as the two medicationswork differently. documented in this encounter Medications at Time of Discharge Medication Sig Dispensed Refills Start Date End Date cyclobenzaprine (Flexeril) 5 mg tablet Take 1 tablet by mouth 3 times daily as needed for Muscle spasms. 5 tablet 07/10/2023 ibuprofen (Advil) 600 mg tablet Take 1 tablet by mouth every 6 hours as needed for Pain. 30 tablet 12 07/09/2023 lithium 300 mg capsule Take 300 mg by mouth once. Once a day cholecalciferol, Vitamin D3, (Vitamin D3) 50 mcg (2,000 unit) tablet Take by mouth daily. magnesium 250 mg tablet Take by mouth daily as needed. lactobacillus rhamnosus, GG, (CULTURELLE) 10 billion cell Capsule Take 1 capsule by mouth daily. acetaminophen (Tylenol) 325 mg tablet Take 2 tablets by mouth every 4 hours as needed for Pain. 30 tablet 1 07/09/2023 08/21/2023 polyethylene glycoL (Miralax) 17 gram/dose Powder Take 17 g by mouth daily. 255 g 07/09/2023 08/21/2023 senna-docusate (Pericolace) 8.6-50 mg Tablet Take 1 tablet by mouth daily. 60 tablet 11 07/09/2023 08/21/2023 documented as of this encounter Progress Notes * Nasra Grant RN - 07/10/2023 10:15 AM EDT [facility] Short Stay Unit Discharge Note All relevant discharge milestones have been met by the patent. After Visit Summary and discharge teaching reviewed with the patient. IV access has been discontinued. All personal belongings have been returned to the patient/family upon their departure from the unit. Patient has been discharged to home The patient has been discharged without VNA services. * Heike Servin - 07/10/2023 6:24 AM EDT Gynecology Progress Note ID: Jenn Borrero is a 57 y.o.woman who is post operative day #1 s/p TVH with bilateral salpingectomy; bilateral USLS, A/P repair, and cysto in the setting of stage 3 uterovaginal prolapse. 24hr Subjective Events: Jenn is doing well this morning without any acute concerns. She had some notable back pain last night that resolved well with a PRN dose of flexeril. Otherwise, her pain has been well controlled with tylenol and toradol, and she has not required any narcotics. She had some nausea overnight requiring one dose of compazine that has since improved. She is tolerating PO intake well and denies any nausea or vomiting. This morning she passed her back fill trial. She noted some pain with urination, but no difficulty urinating. She is ambulating on her own without assist or lightheadedness. Vitals: Temp: [36 ??C (96.8 ??F)-36.8 ??C (98.2 ??F)] Heart Rate: [56-77] Resp: [14-21] BP: (90-152)/(60-92) SpO2: [94 %-100 %] Heart Rate from SpO2: [57 bpm-92 bpm] In/Outs: Intake/Output Summary (Last 24 hours) at 07/10/2023 0640 Last data filed at 07/10/2023 0530 Gross per 24 hour Intake 3508 ml Output 3885 ml Net -377 ml Physical Exam: Gen: AAOx3, NAD awake and comfortable in bed Cardio: RRR, no murmurs or gallops. Pulm: CTAB, no wheezes or crackles. Abd: soft, non-distended, non-tender Ext: warm, well-perfused, no edema bilaterally. : Lincoln removed Labs: - No recent labs Assessment and Plan: Jenn Borrero is a 57 y.o. woman who is post operative day #1 s/p vaginal hysterectomy with bilateral salpingectomy; bilateral uterosacral ligament suspension, anterior / posterior colporrhaphy, and cyst in the setting of stage 3 uterovaginal prolapse. Her only complaint is some back pain, likely from surgical positioning that relieved with flexeril overnight. We will plan to send her home with some flexeril for post-op pain. Otherwise she is doing well and meeting all post-op milestones. We will plan to discharge this morning. Plan Summary: - D/C IVF - Discharge this AM - Flexeril sent to home pharmacy Pain Control: Adequate pain control with tylenol / toradol. Cardiac/Heme: Normotensive and hemodynamically stable Pulmonary: Adequate O2 sats on RA Gastrointestinal: Tolerating diet, no N/V - Regular diet - Pericolace/miralax - Zofran/ compazine prn nausea, will not go home with these Genitourinary: Adequate UOP, lincoln out after adequate backfill trial Director Of Dietary: s/p surgery for stage 3 POP, follow up outpatient in 6 weeks, post-op counseling provided Fluid/ Electrolytes: D/C LR this AM Psych: Hx of bipolar, continue home lithium MSK: PRN flexeril, sent to home pharmacy on discharge ID: afebrile, no signs of infection Prophylaxis: Incentive spirometry, OOB and ambulating on her own Disposition: Discharge home this AM Code Status: Full Code This plan was discussed with Dr. Mcmullen. Heike Servin Medical Student, MS4 Urogynecology Team 07/10/2023 * Sarah Negron MD - 07/10/2023 6:22 AM EDT Gynecology - Progress Note Jenn Borrero is a 57 y.o. woman who is POD#1 s/p TVH, BS, USLS, cysto, repair or cystocele and rectocele. Subjective: Jenn is doing very well this morning. Bothered overnight by lower back pain. This resolved with flexeril for about 3 hours and she was able to sleep. No cramping or abdominal pain. Tolerated dinner without nausea or vomiting. Ambulating without lightheadedness or dizziness. Minimal vaginal bleeding. Able to pass voiding trial. ROS negative for headache, chest pain, shortness of breath, nausea, vomiting, leg pain or swelling. Physical Exam: Last Set of Vitals and range of vitals over past 24 hours: Last value Range last 24 hrs Temperature Temp: 36.8 ??C (98.2 ??F) Temp: [36 ??C (96.8 ??F)-36.8 ??C (98.2 ??F)] Heart Rate Heart Rate: 58 Heart Rate: [56-77] Blood Pressure BP: (!) 152/92 BP: (90-152)/(60-92) Respiratory Rate Resp: 14 Resp: [14-21] SpO2 SpO2: 100 % SpO2: [94 %-100 %] Intake/Output Summary (Last 24 hours) at 07/10/2023 0622 Last data filed at 07/10/2023 0530 Gross per 24 hour Intake 3508 ml Output 3885 ml Net -377 ml I/O this shift: In: 2308 [P.O.:600; I.V.:1408] Out: 3300 [Urine:3300] UOP last recorded at 7430=[id number]/hr Body mass index is 27 kg/m??. Gen: Resting comfortably in bed. NAD. Neuro: Alert and oriented. Cardiac: RRR. No murmurs, rubs, or gallops. Pulm: CTAB. No wheezes, rales, or rhonci. Abd: soft, nontender to palpation. Extremities: No lower extremity edema or calf tenderness Laboratory (Last 24 Hours): No results for input(s): WBC, HGB, HCT, PLATELET in the last 168 hours. No results for input(s): NA, K, CL, CO2, BUN, CREATININE, MAGNESIUM, PHOS in the last 168 hours. Studies: none Assessment and Plan Jenn Borrero is a 57 y.o. woman who is POD#1 s/p TVH, BS, USLS, cysto, repair or cystocele and rectocele. Admitted overnight for pain control after late case. Recovering well in immediate postoperative period, please see systems-based assessment below. Neuro: Alert and oriented. Pain well controlled with Tylenol, Toradol, PRN Flexeril. Tylenol, toradol--> motrin Plan to send Flexeril at discharge for back pain. Cardiovascular: Vital signs WNL, hemodynamically stable. Pulmonary: Adequate spO2 on room air, no concerns GI: Tolerating normal diet without nausea or vomiting. Regular diet ordered, advance as tolerated. Pericolace, Miralax : passed backfill void trial, Lincoln catheter removed. Adequate UOP overnight. FEK: LR running @100cc/hr overnight. Discontinued this morning as she is tolerating PO. Director Of Dietary: S/p above procedures for pelvic organ prolapse. Final pathology pending. Follow up in clinic 6 weeks postoperatively. ID: Afebrile, received prophylactic antibiotics preop, no evidence of infection. Prophylaxis: SCDs while in bed Received Heparin pre-operatively Encourage ambulation Dispo: Discharge to home this morning, meting post-operative milestones. Code Status: Full Code Patient was seen by attending Dr. Arguello, attending Urogynecologist, and Dr. Negron, Fellow and the plan was formulated. Ken Mcmullen MD PGY4 07/10/23 DIVISION FEMALE PELVIC MEDICINE & RECONSTRUCTIVE SURGERY FELLOW ADDENDUM I saw Jenn Borrero today, and agree with the above note In brief, Jenn Borrero is a 57 y.o., with stage III pelvic organ prolapse who underwent uncomplicated vaginal hysterectomy with bilateral salpingectomy; bilateral uterosacral ligament suspension, anterior / posterior colporrhaphy. EBL 150. She is doing well this morning. Had lower back pain that feel like an exacerbation of her chronic pain that was relieved with flexeril overnight. Otherwise, limited pain. Able to do some stretching this morning which is helpful. Abdomen soft. TOV: 300 instilled, voided 200. Recommendations - as above - appropriate for discharge Sarah Negron MD, PGY6 Fellow, Division of Female Pelvic Medicine/Reconstructive Surgery Associated attestation - Maciej Arguello MD - 07/11/2023 8:08 AM EDT DIVISION FEMALE PELVIC MEDICINE & RECONSTRUCTIVE SURGERY STAFF NOTE Active Hospital Problems Diagnosis Uterovaginal prolapse, incomplete Prolapse of female pelvic organs Resolved Hospital Problems No resolved problems to display. Late entry. I saw Ms. Borrero today (07/10/23 6:45 am) and reviewed her history. She is Post- operative day #1, s/p vaginal hysterectomy, bilateral salpingectomy, bilateral uterosacral ligament suspension, anterior/ posterior colporrhaphy. I have reviewed Dr. Mcmullen and Migdalia's note above and agree with the history they outline. Patientis most bothered by back pain, some relief with flexeril. She has tolerated PO, ambulated and voided. I examined the patient and agree with the documented findings above. Pertinent findings include: stable vitals, afebrile. Stretching in bed, fully dressed. I agree with the diagnosis of POD day #1. The patient is meeting milestones for discharge. I agree with the plans outlined above. Estimated date of discharge: today. I reviewed discharge instructions. MACIEJ ARGUELLO MD Division of Female Pelvic Medicine & Reconstructive Surgery 1 * Percy Bond RN - 07/10/2023 5:45 AM EDT Patient arrived to unit from [facility]. Lincoln in place and draining adequately. Pain medication given with adequate relief. Tolerating regular diet. Void trial successful in AM. Lincoln remained out. Patientable to ambulate around unit with cane with no issues. Call rosenthal within reach and patient ringing appropriately. Will continue to monitor. * Ban Cali MD - 07/09/2023 11:10 PM EDT Gynecology Postoperative Progress Note ID: Jenn Borrero is an 57 y.o. woman who is post operative day #0 s/p vaginal hysterectomy with bilateral salpingectomy; bilateral uterosacral ligament suspension, anterior / posterior colporrhaphy for stage 3 uterovaginal prolapse. Intraoperative Events: -EBL 150mL -Findings: Uterovaginal prolapse, stage 3. Normal uterus, adnexae. Adhesion at right lower uterus. Cystourethroscopy with patent ureteral orifices bilaterally, free spill of orange dye. Ureters in orthotopic position. Normal bladder, urethral mucosa. Subjective: Jenn Borrero reports that her pain is well controlled with toradol and tylenol. She reports minimalnausea and has tolerated PO intake well. Denies vomiting. Her lincoln catheter remains in place draining pink-tinged urine. She has not yet ambulated. She has no complaints other than mild nausea which she states has been improving as she increases her po intake She denies chest pain, shortness of breath, fever, chills, lightheadedness, dizziness, and leg pain. She has not noticed any bleeding per vagina and has had minimal aching which is relieved by warm compress Physical Exam: Last value Range last 24 hrs Temperature Temp: 36.8 ??C (98.2 ??F) Temp: [36 ??C (96.8 ??F)-36.8 ??C (98.2 ??F)] Heart Rate Heart Rate: 58 Heart Rate: [56-77] Blood Pressure BP: (!) 152/92 BP: (90-152)/(60-92) Respiratory Rate Resp: 14 Resp: [14-21] SpO2 SpO2: 100 % SpO2: [94 %-100 %] Art BP BP (Arterial Line): -- UOP: 110 mL/ hour from 19:00 to 23:00 Physical Exam Gen: AAOx3, NAD awake and comfortable in bed Cardio: RRR, no MRG Pulm: CTAB, no wheezes or crackles. Abd: soft, non-distended, non-tender, active bowel sounds Ext: warm, well-perfused, no edema bilaterally, SCDs in place : Lincoln catheter in place draining pink tinged urine. Vaginal bleeding noted to be minimal / absent on celine-pad Assessment and Plan: Jenn Borrero is an 57 y.o. woman post operative day #0 s/p above procedure forvaginal prolapse. She has no complaints currently. Patient is meeting appropriate postoperative in the immediately postoperative phase. Plan for discharge POD#1 morning. Pain Control: adequate pain control with tylenol / toradol. -- continue to order tylenol, Toradol. Patient preferred to avoid narcotics. Cardiac/Heme: Currently normotensive and hemodynamically stable Pulmonary: Adequate o2 sats on RA Gastrointestinal: -- regular diet ordered --pericolace/miralax -- zofran/ compazine prn nausea. Genitourinary: adequate UOP -- plan backfill void trial next morning Fluid/ Electrolytes: -- LR at 100cc/hour. -- discontinue intravenous fluid when taking adequate PO Psych: # Hx of bipolar -- Continue home lithium MSK: Hx of arthritis: -- Continue home prn flexeril ID: afebrile -- no current concerns Prophylaxis: --Incentive spirometry. --SCDs. Disposition: --Anticipate discharge to home, POD#1 morning Will discuss with day team and Dr. Dragan Cali MD, PGY3 Obstetrics and Gynecology 07/10/2023 * Brooklyn Kaur RN - 07/09/2023 8:49 PM EDT Pt and patients decided patient should stay the night. Patient not ready to discharge at this time. Report given to PAZ Greer in [facility]. PAZ Barahona documented in this encounter H&P Notes * Sarah Negron MD - 07/09/2023 1:46 PM EDT Preoperative Interval H&P Patient name: Jenn Borrero Date of : 1965 Jenn Borrero is a 57 y.o. with stage 3 uterovaginal prolapse, who presents today for vaginal hysterectomy with bilateral salpingectomy; bilateral uterosacral ligament suspension, anterior / posteriorcolporrhaphy . I have reviewed the pre- procedure H&P completed by Maya Lux APRN on 06/26/23. (x) Condition unchanged since H&P originally performed. Interval Note: Patient seen in same day area. She has had no changes to her health since her pre-operative visit. No new meds/allergies or hospital/ER visits. Declines narcotics. Patient Vitals for the past 24 hrs: Temp Pulse Resp BP SpO2 O2 Device 07/09/23 1314 36 ??C (96.8 ??F) 77 16 (!) 141/91 99 % RA Physical Exam: General: Alert, not in distress CV: RRR, no murmurs, rubs or gallops Resp: CTAB Abd: soft, non-tender : deferred to OR Assessment/Plan: Ms. Borrero, as above. Consent reviewed, and patient ready to proceed with planned surgery. -- To OR as scheduled -- Pyridium 200mg prior to procedure -- Abx: Cefazolin and metronidazole -- VTE ppx: Heparin and SCDs -- Opioid consent declined per patient, understands that she will not be able to request prescription without consent on file -- Anticipate same day discharge Seen with Dr. Arguello, Attending Urogynecologist Sarah Negron MD, PGY6 Fellow, Division of Female Pelvic Medicine/Reconstructive Surgery Associated attestation - Maciej Arguello MD - 07/09/2023 2:23 PM EDT I met with Ms. Borrero today. I have reviewed Dr. Negron's note and agree with the assessment and plan. MACIEJ ARGUELLO MD documented in this encounter Miscellaneous Notes * Brief Op Note - Maciej Arguello MD - 07/09/2023 6:43 PM EDT Brief Operative Note Patient Name: Jenn Borrero : [id number] MR#: [id number] Case Date: 07/09/2023 Surgeon: Surgeon(s) and Role: * Maciej Arguello MD - Primary * Ken Mcmullen MD - Resident - Assisting * Sarah Negron MD - Fellow - Assisting Preoperative diagnosis: Uterovaginal prolapse, stage 3. Postoperative diagnosis: Uterovaginal prolapse, stage 3. Procedure(s) (LRB): HYSTERECTOMY, VAGINAL, REMOVAL TUBE(S) & OR OVARY(S) (WRVU 15.94) (N/A) COLPOPEXY, VAGINAL, INTRAPERITONEAL APPROACH (WRVU 11.66) (N/A) COLPORRHAPHY ANTERIOR-POSTERIOR; INC CYSTOURETHROSCOPY (WRVU 13.25) (N/A) (Vaginal hysterectomy, bilateral salpingectomy; bilateral uterosacral ligament suspension, anterior/ posterior colporrhaphy) Anesthesia: General endotracheal tube Findings: Uterovaginal prolapse, stage 3. Normal uterus, adnexae. Adhesion at right lower uterus. Cystourethroscopy with patent ureteral orifices bilaterally, free spill of orange dye. Ureters in orthotopic position. Normal bladder, urethral mucosa. Complications: None Intake: Intraprocedure Crystalloid Total Intake lactated ringers infusion 1200.00 mL Total Intake 1200 mL Output Urine Output 435 mL Blood Loss 150 mL Total Output 585 mL Net Net Volume 615 mL Transfusion No data found in the last 1 encounters. Output: Estimated Blood Loss: 150 mL Urine Output:: 435 mL Other Output: (no other output recorded) Drains: Lincoln to gravity bag drainage. Specimens removed during surgery: Order Name Source Comment Collection Info Order Time SPECIMEN TO PATHOLOGY Uterus, cervix and bilateral fallopian tubes OR 4 Ext [id number] Uterovaginal prolapse, stage 3. Uterus, cervix, and bilateral fallopian tubes excision 07/09/2023 4:53 PM Time specimen removed from patient: 4:32 PM Number of tissue samples (in container) 1 Disposition: awakened from anesthesia, extubated and taken to the recovery room in a stable condition, having suffered no apparent untoward event. Condition: doing well without problems Attestation: Case Date: 07/09/2023 I was present and I participated during the entire procedure (does not need to include opening and closing). (Please see the Surgical Encounter Summary for any Implant and Specimen details pertinent to this patient.) Surgical Infection Prevention Bundle Used? Yes Infection present at time of surgery?: No Chlorhexidine wipes in Same Day prior to surgery: Yes Expected bowel surgery? No. Fingerstick glucose checked in Same Day: Yes Chlorhexidine-alcohol skin prep: No Pre-op IV antibiotics: Cefazolin + Metronidazole Vaginal prep: Yes. Chlorhexidine Open case? No. * Op Note - Sarah Negron MD - 07/09/2023 3:24 PM EDT [facility] Operative Note Patient Name: Jenn Borrero : [id number] MR#: [id number] Case Date: 07/09/2023 Surgeon: Surgeon(s) and Role: * Maciej Arguello MD - Primary * Ken Mcmullen MD - Resident - Assisting * Sarah Negron MD - Fellow - Assisting Preoperative diagnosis: Uterovaginal prolapse, stage 3. Postoperative diagnosis: Uterovaginal prolapse, stage 3. Procedure(s) (LRB): HYSTERECTOMY, VAGINAL, REMOVAL TUBE(S) & OR OVARY(S) (WRVU 15.94) (N/A) COLPOPEXY, VAGINAL, INTRAPERITONEAL APPROACH (WRVU 11.66) (N/A) COLPORRHAPHY ANTERIOR-POSTERIOR; INC CYSTOURETHROSCOPY (WRVU 13.25) (N/A) (Vaginal hysterectomy, bilateral salpingectomy; bilateral uterosacral ligament suspension, anterior/ posterior colporrhaphy) Findings: Uterovaginal prolapse, stage 3. Normal uterus, adnexae. Adhesion at right lower uterus. Cystourethroscopy with patent ureteral orifices bilaterally, free spill of orange dye. Ureters in orthotopic position. Normal bladder, urethral mucosa. Anesthesia: General Estimated Blood Loss: 150 mL Specimens removed during surgery: Order Name Source Comment Collection Info Order Time SPECIMEN TO PATHOLOGY Uterus, cervix and bilateral fallopian tubes OR 4 Ext [id number] Uterovaginal prolapse, stage 3. Uterus, cervix, and bilateral fallopian tubes excision 07/09/2023 4:53 PM Time specimen removed from patient: 4:32 PM Number of tissue samples (in container) 1 Drains: Lincoln to gravity bag drainage Surgical Closure: Primary Closure - skin incision is completely closed without any wires, darlene, drains or other devices Disposition: awakened from anesthesia, extubated and taken to the recovery room in a stable condition, having suffered no apparent untoward event. Condition: doing well without problems (Please see the Surgical Encounter Summary for any Implant and Specimen details pertinent to this patient.) HPI/Surgical Indications: Ms. Jenn Borrero is a 57 y.o. with stage 3 uterovaginal prolapse,who presents today for vaginal hysterectomy with bilateral salpingectomy; bilateral uterosacral ligament suspension, anterior / posterior colporrhaphy. Ms. Jenn Borrero was seen in pre-op, consent was reviewed and she elected to proceed with planned surgery. Procedure Description: The patient was brought to Operating Room #04. General anesthesia was induced. The patient was positioned in the dorsal lithotomy position with her legs in adjustable Yellofin stirrups in what was felt to be neurologically safe positioning. Exam under anesthesia was performed. She had knee-high intermittent pneumatic compression stockings on throughout the procedure for DVTprophylaxis. She received 2 gm Cefazolin and 500 mg Metronidazole IV on-call prior to skin incisionfor prophylaxis. She was prepped and draped in the usual sterile fashion. Prior to starting the procedure a time-outprotocol was adhered to confirming the patient's identity, planned procedures, and safety measures. The hysterectomy was initiated by first infiltrating the cervical portio with lidocaine-epinephrine1:100,000 solution. A weighted speculum had been introduced into the vagina and thyroid-Aubrie clamps used to grasp the anterior and posterior lips of the cervix. A circumscribing incision was made around the cervical portio through the full thickness of the vaginal wall using cutting current electrocautery. The vagina was dissected away from the distal uterosacral and cardinal pedicles with bluntdissection. This exposed the ligaments and allowed shortening of the ligaments by approximately 5 cm. Anterior colpotomy was performed with sharp dissection. A Lorton retractor was used to displace the bladder and ureters out of harm's way. Posterior colpotomy was performed. A Lincoln catheter was inserted using sterile technique. Next, the uterosacral ligaments were clamped back towards the retracted vaginal edge, shortening the ligaments by approximately 3 cm bilaterally. These were clamped, divided, and ligated with 2-0 Vicryl transfixion suture. Next, the ureters were palpated, and after assuring these were out of harm'sway, the cardinal ligaments were clamped, divided, and ligated with 2-0 Vicryl transfixion suture. Sequential bites were then taken along the broad ligament, clamping, dividing, and ligating with 2-0Vicryl transfixion suture. At the level of the utero-ovarian ligaments, these were separately isolated, clamped, ligated with a free tie of 2-0 Vicryl while flashing the clamp; this was followed by a suture ligature of 2-0 Vicryl in a transfixion fashion. Bilateral salpingectomy was performed. The right tube was resectedby clamping along the mesosalpinx, ligating with 2-0 Vicryl while flashing the clamp, followed by excising the entire tube and ligating with a 2-0 Vicryl transfixion suture. The left tube was taken separately in a similar fashion. The ovarian pedicles were inspected, and after assuring these were hemostatic and that the ovaries were normal, these were released. All pedicles were inspected for hemostasis, and after assuring good hemostasis, the angles of the vagina were reattached to the distal uterosacral and cardinal pedicles with 0-Vicryl suture. These sutures were held without tying until the deep uterosacral sutures couldbe placed. Using a long Allis clamp at the anterior vaginal cuff, there appeared to be persistent laxity (cystocele) at the anterior wall. An anterior colporrhaphy was performed prior to proceeding with the apical suspension. The anterior wall was infiltrated with the lidocaine with epinephrine solution. The bladder was sharply dissected away from the anterior wall under direct visualization with the anterior wall everted. A wedge of anterior wall was excised. The deeper tissue at the bladder muscularis was plicated with interrupted 2-0 PDS sutures. Next, the vagina was reapproximated with interrupted 2-0 Vicryl sutures. Next, a Kerlix roll was placed in the peritoneal cavity to pack the bowel out of the pelvis. The uterosacral ligament suspension sutures were placed first through the anterior vaginal wall. The firstand third sutures on each side were passed through full thickness of the wall, using 0 PDS suture. The second suture on each side was a 0 Prolene suture, passed through the muscularis only as these knots were planned to be buried with tying. All sutures were then incorporated into the more proximalportion of the uterosacral ligament back towards it sacral origins and then back through the posterior peritoneum and posterior vaginal wall (with the Prolene through muscularis only). The placement of these sutures was facilitated by placing a large Lorton retractor and holding the packing in the anterior vaginal wall and bladder and ureters out of harm's way. At the same time the posterior peritoneum and rectum was retracted away with a Breisky retractor. The sutures were placed in the intermediate portion of the uterosacral ligament approximately 5 cm from their distal cut pedicle. They were then brought through the posterior peritoneum and vaginal wall. This was performed bilaterally. The packing was removed, and all sutures were tied across the cuff with good elevation of the apex ofthe vagina. Cystourethroscopy was then performed with a 70-degree cystoscope. Free spill of orange dye was seenfrom both ureteral orifices, and the bladder mucosa appeared normal. The bladder was again drained with a Lincoln catheter. The vaginal cuff was inspected, and found to be completely closed. After the suspension at the apex, the anterior vaginal wall and vaginal cuff were well supported and hemostatic. A running 2-0 Vicryl suture was used to reapproximate the full thickness of the vaginal wall over the mesh in the midline. The skin overlying the obturator foramen bilaterally was reapproximated withDermabond glue. A posterior colpoperineorrhaphy was performed by mapping out a region to be excised along the posterior vaginal wall. This was mapped out with marking clamps at the hymenal remnants distally, and then infiltration with lidocaine- epinephrine 1:100,000 solution was performed on the posterior vaginal wall. A socorro-shaped wedge of posterior vaginal wall was excised including a small amount of perineal body. This was performed by full-thickness dissection, entering into the rectovaginal septum, and once this portion was excised deep sutures were placed with running 2-0 PDS suture, building up the sutures more distally and building up a shelf of tissue between the rectum and the vagina. Running2-0 Vicryl suture was then used to reapproximate the full-thickness vaginal wall [id number]. Thiswas continued out to the perineal body. Care was taken to avoid any excessive narrowing of the vaginal introitus. A repeat rectal examination was performed to confirm no injury to the rectum and normal support. Attending UroGynecologist, Dr. Arguello, was present and scrubbed for the duration of the procedure. Sarah Negron MD, PGY6 Fellow, Division of Female Pelvic Medicine/Reconstructive Surgery Surgical Infection Prevention Bundle Used? Yes Infection present at time of surgery?: No Chlorhexidine wipes in Same Day prior to surgery: Yes Expected bowel surgery? No. Fingerstick glucose checked in Same Day: Yes Chlorhexidine-alcohol skin prep: Yes Pre-op IV antibiotics: Cefazolin + Metronidazole Vaginal prep: Yes. Chlorhexidine Open case? No. Associated attestation - Maciej Arguello MD - 07/10/2023 8:28 AM EDT Attestation: Case Date: 07/09/2023 I was present and I participated during the entire procedure (does not need to include opening and closing). MACIEJ ARGUELLO MD 07/10/2023 documented in this encounter Plan of Treatment Not on file documented as of this encounter Procedures Procedure Name Priority Date/Time Associated Diagnosis Comments SPECIMEN TO PATHOLOGY Routine 07/09/2023 4:53 PM EDT SURGICAL PATHOLOGY REPORT Routine 2022 4:32 PM EDT Combined Ant/Post Colporrhaphy W Cysto ([id number]) 07/09/2023 2:49 PM EDT Uterovaginal prolapse, incomplete Revaginal Prolapse, Uterosacral ([id number]) 07/09/2023 2:49 PM EDT Uterovaginal prolapse, incomplete Vag Hyst, 250 Gm Or Less, W Removal Of Tube &/Or Ovary ([id number]) 07/09/2023 2:49 PM EDT Uterovaginal prolapse, incomplete POCT GLUCOSE Routine 07/09/2023 1:31 PM EDT HYSTERECTOMY, VAGINAL, REMOVAL TUBE(S) & OR OVARY(S) Routine 07/09/2023 12:57 PM EDT Uterovaginal prolapse, incomplete COLPOPEXY,VAGINAL\INTRAPE RITONEAL Routine 07/09/2023 12:57 PM EDT Uterovaginal prolapse, incomplete COLPORRHAPHY ANTERIOR-POSTERIOR; INC CYSTOURETHROSCOPY Routine 07/09/2023 12:57 PM EDT Uterovaginal prolapse, incomplete documented in this encounter Results * Specimen to Pathology (07/09/2023 4:53 PM EDT) AP Specimen 07/09/2023 4:53 PM EDT 07/09/2023 4:53 PM EDT Narrative [facility] - 07/09/2023 4:53 PM EDT Specimen requisition ordered. ??Separate Pathology report to follow Maciej Arguello MD PATHOLOGY/CYTOLOGY O RDERABLES [facility] [place] [address] * Surgical Pathology Report (07/09/2023 4:32 PM EDT) Final Diagnosis [id number] ? Location: [facility]; [address] The signing pathologist has (i) examined the relevant preparation(s) for the specimen(s) and (ii) rendered or confirmed the diagnosis(es). . ?Surgical Pathology DIAGNOSIS Uterus and bilateral fallopian tubes (hysterectomy and bilateral salpingectomy for prolapse): ?? 1. Uterine leiomyomas. ?? 2. Benign inactive endometrium. ?? 3. Benign cervix with squamous metaplasia and ?Nabothian cysts. ?? 4. Bilateral benign fallopian tubes. CR-0 Electronically signed by: ?Paulino ABEL, Daniel Konx Verified: ??07/11/2023 15:10 ??Pathologist Performed at: ??-[facility] Dept. of Pathology, [place] [address] [employer] Gold Wheel: Malini Palma MD, FCAP, ??CLIA Certificate: [id number] SPECIMEN(S) SUBMITTED A - Uterus, cervix, and bilateral fallopian tubes, resection CLINICAL INFORMATION Uterovaginal prolapse, stage III SPECIMEN PROCESSING A - Labeled/Fixative: Uterus, cervix, and bilateral fallopian tubes, fresh. Quantity: Single. Cornu to cornu: 3.7 cm. Anterior to posterior: 0.4 cm. Dome to Cervix: 6.2 cm. Weight (overall): 40.0 grams. Tissue Description: Intact simple hysterectomy and bilateral salpingectomy. UTERUS Endometrium: 4.3 x 2.9 x 0.1 cm; single anterior submucosal white, homogenous, whorled, rubbery nodule measuring 0.6 x 0.5 x 0.4 cm. Myometrium: 1.5 cm. Serosa: Glistening and pink-tafoya. CERVIX Diameter: 2.9 cm. Os: 1.1 cm, slit-like. FALLOPIAN TUBES Fallopian Tube 1: 3.2 x 0.6 cm, fimbriated. Fallopian Tube 2: 2.5 x 0.7 cm, fimbriated. [employer] Consultant sections in 9 cassettes as follows: ?A1: Anterior cervix ?A2: Posterior cervix ?A3: Full-thickness anterior endomyometrium ?A4: Full-thickness anterior endomyometrium, to include nodule ?A5: Full-thickness posterior endomyometrium ?A6-A7: Fallopian tube #1 ?A8-A9: Fallopian tube #2 ??BGT 07/11/2023 3:10 PM EDT [facility] Uterine Corpus 07/09/2023 4: 32 PM EDT 07/09/2023 4:32 PM EDT Maciej Arguello MD PATHOLOGY/CYTOLOGY O KEVYN Performing Organization Address City/[facility]/ZIP Co de Phone Number [facility] [address] [place] [address] * POCT Glucose (07/09/2023 1:31 PM EDT) Glucose, POC 94 65 - 199 mg/dL [facility] Comment: Supplemental ranges: <140 mg/dL before meals <180 mg/dL all other times of the day Blood 07/09/2023 1:31 PM EDT 07/09/2023 1:31 PM EDT Maciej Arguello MD POINT OF CARE [place] [address] documented in this encounter Visit Diagnoses Diagnosis Uterovaginal prolapse, incomplete- Primary Prolapse of female pelvic organs Unspecified genital prolapse documented in this encounter Admitting Diagnoses Diagnosis Prolapse of female pelvic organs Unspecified genital prolapse documented in this encounter Administered Medications Inactive Administered Medications - up to 3 most recent administrations Medication Order MAR Action Action Date Dose Rate Site acetaminophen (Tylenol) tablet 1,000 mg 1,000 mg, Oral, ONCE, 1 dose, On Fri07/09/23 at 1330, Administer with a SIP of water only. Maximum dose of acetaminophen is 4,000 mg from all sources in 24 hours., Day of Surgery (Day of Procedure), Routine Given 07/09/2023 1:22 PM EDT 1,000 mg acetaminophen (Tylenol) tablet 650 mg 650 mg, Oral, EVERY 6 HOURS PRN, Starting on Fri07/09/23 at 1858, Until Fri07/10/23 at 1239, Pain, If multiple pain medications ordered, use acetaminophen first. Maximum dose of acetaminophen is 4000 mg from all sources in 24 hours. When ordered for pain, acetaminophen should be given even when other ordered pain medications are indicated., Routine Given 07/09/2023 9:36 PM EDT 650 mg cyclobenzaprine (Flexeril) tablet 5 mg 5 mg, Oral, 3 TIMES DAILY PRN, Starting on Fri07/10/23 at 0111, Until Fri07/10/23 at 1239, Muscle spasms, Routine Given 07/10/2023 8:54 AM EDT 5 mg Given 07/10/2023 1:25 AM EDT 5 mg docusate sodium (Colace) capsule 100 mg 100 mg, Oral, 2 TIMES DAILY, First dose on Fri07/09/23 at 2200, Until Discontinued, Routine Given 07/10/2023 8:51 AM EDT 100 mg heparin (porcine) (5,000 units/1 mL) subcutaneous injection 5,000 Units 5,000 Units, Subcutaneous, ONCE, 1 dose, On Fri07/09/23 at 1330, Day of Surgery (Day of Procedure), Routine Given 07/09/2023 1:32 PM EDT 5,000 Units ketorolac (Toradol) (30 mg/mL) injection 15 mg 15 mg, Intravenous, EVERY 8 HOURS SCHEDULED, 3 doses, First dose on Fri07/09/23 at 1915, Last dose on Fri07/10/23 at 1400, Routine Given 07/10/2023 12:11 AM EDT 15 mg lactated ringers infusion 1,000 mL, at 100 mL/hr, Intravenous, CONTINUOUS, Starting on Fri07/09/23 at 2200, Until Fri07/10/23 at 0626 New Bag 07/09/2023 9:42 PM EDT 1,000 mLs 100 mL/hr lithium capsule 300 mg 300 mg, Oral, ONCE, 1 dose, On Fri07/09/23 at 2200, Take with Food, Routine Given 07/09/2023 9:47 PM EDT 300 mg ondansetron (pf) (Zofran) (2 mg/mL) injection 4 mg 4 mg, Intravenous, EVERY 30 MIN PRN, 2 doses, Starting on Fri07/09/23 at 1943, Until Fri07/09/23 at 2124, Nausea, Maximum total dose of 8 mg (including OR administration). If multiple antiemetics ordered, use ondansetron first and if ineffective use prochlorperazine or haloperidoL second, PACU Recovery Given 07/09/2023 8:05 PM EDT 4 mg phenazopyridine (Pyridium) tablet 200 mg 200 mg, Oral, ONCE, On Fri07/09/23 at 1330, 1 dose, Day of Surgery (Day of Procedure) Given 07/09/2023 1:22 PM EDT 200 mg prochlorperazine (Compazine) (5 mg/mL) injection 5 mg 5 mg, Intravenous, EVERY 20 MIN PRN, 2 doses, Starting on Fri07/09/23 at 2016, Until Fri07/10/23 at 1239, Nausea, Routine Given 07/09/2023 8:19 PM EDT 5 mg senna-docusate (Pericolace) 8.6-50 mg per tablet 2 tablet 2 tablet, Oral, 2 TIMES DAILY, First dose on Fri07/09/23 at 2200, Until Discontinued, Hold for loose stool. , Routine Given 07/10/2023 8:51 AM EDT 2 tablets sodium chloride 0.9 % (flush) (BD PosiFlush Normal Saline 0.9) flush 5 mL 5 mL, Intravenous, 2 TIMES DAILY, First dose on Fri07/09/23 at 2200, Until Discontinued, Routine Given 07/10/2023 8:51 AM EDT 5 mLs Given 07/09/2023 9:44 PM EDT 5 mLs documented in this encounter Active and Recently Administered Medications Times are shown in EDT. Scheduled Medication Order 07/08/2023 07/09/2023 07/10/2023 acetaminophen (Tylenol) tablet 1,000 mg (COMPLETED) 1,000 mg, Oral, ONCE, 1 dose, On Fri07/09/23 at 1330, Administer with a SIP of water only. Maximum dose of acetaminophen is 4,000 mg from all sources in 24 hours., Day of Surgery (Day of Procedure), Routine 1322 (Given - Provider: Lu Peña, PAZ) ceFAZolin (Ancef) 2 g vial attach to sodium chloride 0.9% 100 mL Mini-Bag Plus (COMPLETED)(Linked Group 1) 2 g, Intravenous, ONCE, 1 dose, On Fri07/09/23 at 1330, Administer over 30 Minutes, Radiologist Diagnostic to OR Infuse over 30 minutes., Day of Surgery (Day of Procedure), Indication for (Active or Suspected): Prophylaxis 1516 (New Bag - Provider: Nathan Pollock MD) docusate sodium (Colace) capsule 100 mg 100 mg, Oral, 2 TIMES DAILY, First dose on Fri07/09/23 at 2200, Until Discontinued, Routine 2200 (Not Given - Provider: Percy Bond RN - Reason: Patient/family refused) 0851 (Given - Provider: Nasra Grant RN) heparin (porcine) (5,000 units/1 mL) subcutaneous injection 5,000 Units (COMPLETED) 5,000 Units, Subcutaneous, ONCE, 1 dose, On Fri07/09/23 at 1330, Day of Surgery (Day of Procedure), Routine 1332 (Given - Provider: Lu Peña RN) ketorolac (Toradol) (30 mg/mL) injection 15 mg 15 mg, Intravenous, EVERY 8 HOURS SCHEDULED, 3 doses, First dose on Fri07/09/23 at 1915, Last dose on Fri07/10/23 at 1400, Routine 1915 (Not Given - Provider: Brooklyn Kaur RN - Reason: See comment - Comment: last given at 184) 0011 (Given - Provider: Percy Bond RN) lithium capsule 300 mg (COMPLETED) 300 mg, Oral, ONCE, 1 dose, On Fri07/09/23 at 2200, Take with Food, Routine 2146 (Given - Provider: Percy Bond RN) metroNIDAZOLE (Flagyl) 500 mg in sodium chloride 0.9% 100 mL infusion (COMPLETED)(Linked Group 1) 500 mg, Intravenous, ONCE, 1 dose, On Fri07/09/23 at 1330, Administer over 30 Minutes, Radiologist Diagnostic to OR Infuse over 30 minutes., Day of Surgery (Day of Procedure), Indication for (Active or Suspected): Prophylaxis 1516 (Given - Provider: Nathan Pollock MD) phenazopyridine (Pyridium) tablet 200 mg (COMPLETED) 200 mg, Oral, ONCE, On Fri07/09/23 at 1330, 1 dose, Day of Surgery (Day of Procedure) 1322 (Given - Provider: Lu Peña RN) senna-docusate (Pericolace) 8.6-50 mg per tablet 2 tablet 2 tablet, Oral, 2 TIMES DAILY, First dose on Fri07/09/23 at 2200, Until Discontinued, Hold for loose stool. , Routine 2200 (Not Given - Provider: Percy Bond RN - Reason: Patient/family refused) 0851 (Given - Provider: Nasra Grant RN) sodium chloride 0.9 % (flush) (BD PosiFlush Normal Saline 0.9) flush 5 mL 5 mL, Intravenous, 2 TIMES DAILY, First dose on Fri07/09/23 at 2200, Until Discontinued, Routine 2143 (Given - Provider: Percy Bond RN) 0851 (Given - Provider: Nasra Grant RN) Continuous Medication Order 07/08/2023 07/09/2023 07/10/2023 lactated ringers infusion (CANCELED) 1,000 mL, at 100 mL/hr, Intravenous, CONTINUOUS, Starting on Fri07/09/23 at 1330, Until Fri07/09/23 at 2100, Day of Surgery (Day of Procedure) 1500 (New Bag - Provider: Nathan Pollock MD)1559 (Anesthesia Volume Adjustment - Provider: Zeke August CRNA)1632 (New Bag - Provider: Zeke August CRNA)1703 (Anesthesia Volume Adjustment - Provider: Zeke August CRNA)1909 (Stopped - Provider: Kia Phillips CRNA) lactated ringers infusion (CANCELED) 1,000 mL, at 100 mL/hr, Intravenous, CONTINUOUS, Starting on Fri07/09/23 at 2200, Until Tatyana 07/10/23 at 0626 2142 (New Bag - Provider: Percy Bond RN) 0626 (Stopped - Provider: Percy Bond RN) PRN Medication Order 07/08/2023 07/09/2023 07/10/2023 acetaminophen (Tylenol) tablet 650 mg 650 mg, Oral, EVERY 6 HOURS PRN, Starting on Fri07/09/23 at 1858, Until Tatyana 07/10/23 at 1239, Pain, If multiple pain medications ordered, use acetaminophen first. Maximum dose of acetaminophen is 4000 mg from all sources in 24 hours. When ordered for pain, acetaminophen should be given even when other ordered pain medications are indicated., Routine 2135 (Given - Provider: Percy Bond RN) cyclobenzaprine (Flexeril) tablet 5 mg 5 mg, Oral, 3 TIMES DAILY PRN, Starting on Tatyana 07/10/23 at 0111, Until Tatyana 07/10/23 at 1239, Muscle spasms, Routine 0125 (Given - Provider: Percy Bond RN)0854 (Given - Provider: Nasra Grant RN) lidocaine (Xylocaine) 1% (10 mg/mL) injection 3 mg 3 mg (0.3 mL), Subcutaneous, ONCE PRN, 1 dose, Starting on Fri07/09/23 at 2100, Until Tatyana 07/10/23 at 1239, for discomfort with PIV insertion, Routine lidocaine-EPINEPHrine (pf) (1% - 1:200,000) injection (CANCELED) PRN, Starting on Fri07/09/23 at 1533, Until Tatyana 07/10/23 at 1239, Intra-Operative (Intra-Procedure), Routine 1533 (Given - Provider: Maciej Arguello MD)1655 (Given - Provider: Maciej Arguello MD)1816 (Given - Provider: Maciej Arguello MD) ondansetron (pf) (Zofran) (2 mg/mL) injection 4 mg (CANCELED) 4 mg, Intravenous, EVERY 30 MIN PRN, 2 doses, Starting on Fri07/09/23 at 1943, Until Fri07/09/23 at 2124, Nausea, Maximum total dose of 8 mg (including OR administration). If multiple antiemetics ordered, use ondansetron first and if ineffective use prochlorperazine or haloperidoL second, PACU Recovery 2004 (Given - Provider: Brooklyn Kaur, RN) oxyCODONE (Roxicodone) tablet 5-10 mg 5-10 mg, Oral, EVERY 3 HOURS PRN, Starting on Fri07/09/23 at 1858, Until Tatyana 07/10/23 at 1239, Pain, - If multiple pain medications ordered, use acetaminophen first. - If pain not relieved by acetaminophen first, administer oxycodone. - Initial dose 5 mg. - If pain control not adequate in 60 minutes, give additional 5 mg., Routine polyethylene glycoL (Miralax) packet 17 g 17 g, Oral, DAILY PRN, Starting on Fri07/09/23 at 2100, Until Tatyana 07/10/23 at 1239, Constipation, Administer if no bowel movement within 48 hours to achieve: (1) One bowel movement at least every 48 hours, AND (2) without straining. If multiple PRN bowel medications ordered, start with polyethylene glycoL, then lactulose, then oral bisacodyL, then bisacodyL suppository, then magnesium citrate, then tap water enema. Multiple medications may be given concomitantly for constipation., Routine prochlorperazine (Compazine) (5 mg/mL) injection 5 mg 5 mg, Intravenous, EVERY 20 MIN PRN, 2 doses, Starting on Fri07/09/23 at 2016, Until Tatyana 07/10/23 at 1239, Nausea, Routine 2018 (Given - Provider: Brooklyn Kaur, PAZ) sodium chloride 0.9 % (flush) (BD PosiFlush Normal Saline 0.9) flush 5-20 mL 5-20 mL, Intravenous, EVERY 1 MIN PRN, Starting on Fri07/09/23 at 2100, Until Tatyana 07/10/23 at 1239, flush, Flush pertains to all indwelling lines. Flush per protocol found in the job aid using the link provided on this medication record., Routine Linked Groups Order Group 1: ceFAZolin (Ancef) 2 g vial attach to sodium chloride 0.9% 100 mL Mini-Bag Plus (COMPLETED)Jump to med 2 g, Intravenous, ONCE, 1 dose, On Fri07/09/23 at 1330, Administer over 30 Minutes, Radiologist Diagnostic to OR Infuse over 30 minutes., Day of Surgery (Day of Procedure), Indication for (Active or Suspected): Prophylaxis And metroNIDAZOLE (Flagyl) 500 mg in sodium chloride 0.9% 100 mL infusion (COMPLETED)Jump to med 500 mg, Intravenous, ONCE, 1 dose, On Fri07/09/23 at 1330, Administer over 30 Minutes, Radiologist Diagnostic to OR Infuse over 30 minutes., Day of Surgery (Day of Procedure), Indication for (Active or Suspected): Prophylaxis documented in this encounter Care Teams Coupon And Bond Collection Clerk Relationship Specialty Start Date End Date Maria Luisa Valerio MD [address] [place] [address] PCP - General Family Medicine 03/24/23 documented as of this encounter
--- OUTSIDE RECORDS SUMMARY | 2024-11-17 12:49 | XMS_ITS | Encounter Summary ---
[facility] [place] [address] Care Team Providers Care Line Supply Name Role Phone Maria Luisa Valerio MD Primary Care Provider [phone] Reason for Visit * Reason Onset Date Comments Post Procedure Call 07/11/2023 Encounter Details Date Type Department Care Team (Late st Contact Info) Description 07/11/2023 Telephone Obstetrics [place] [phone] Cehryl Da Silva RN Post Procedure Call Social History Tobacco Use Types Packs/Day Years Used Date Smoking Tobacco: Never Smokeless Tobacco: Never Comments:Smokes marijuana as sleep aid Alcohol Use Standard Drinks/Week Comments Not Currently 0 (1 standard drink = 0.6 oz pur e alcohol) [facility] Inpatient Questions Answer Date Recorded Does Anyone [...] on file documented as of this encounter Miscellaneous Notes * Telephone Encounter - Cheryl Da Silva RN - 07/11/2023 9:18 AM EDT POST-OP TELEPHONE UPDATE Date of Surgery: 07/09/23 and had Vaginal hysterectomy, bilateral salpingectomy; bilateral uterosacral ligament suspension, anterior / posterior colporrhaphy POST-OP TELEPHONE UPDATE Date of Surgery: 07/09/2023 Overall well-being: I am doing swimmingly, so much better than yesterday. Pt c/o extreme fatigue yesterday. Pain?: 02/07 Pain medication working(Y/N)?: yes taking aleve one tablet as needed and flexeril 5mg as needed. Ptstates she does not use tylenol or ibuprofen. Location of pain: generalized Bladder function: yes Bowel function: no positive flatus, review discharge instructions with pt regarding diet and bowel regimen. Also recommended she consider apple sauce, prune juice, bran buds 1-2 tablespoons each, 2-3times per day. She states she is using pericolace. Ambulating: Yes Tolerating solids / liquids: well-tolerated denies n/v Dressings: none Incisions: not visualized Vaginal bleeding: Yes Fever: No: pt checking regularly with home thermometer Pt notes sunburn on face and neck from lights in the OR, better today. She noticed it yesterday when she got home, it has not bothered her today to check it. She does not think it is a rash. She is advised to contact us immediately if she has any concerns regarding this. Post Op appointment booked? Yes, 08/21 Instructions: We reviewed phone contacts. The patient will call triage at option 4 option 3 during daytime hours or during the evening or weekends and ask for the station installer cardiovascular sonographer if she is having problems. TRISTIN HORNER LPN documented in this encounter Plan of Treatment Not on file documented as of this encounter Visit Diagnoses Not on filedocumented in this encounter Care Teams Line Supply Relationship Specialty Start Date End Date Maria Luisa Valerio MD [address] [place] [id number] PCP - General Family Medicine 03/24/23 documented as of this encounter
--- OUTSIDE RECORDS SUMMARY | 2024-11-17 12:50 | XMS_ITS | Encounter Summary ---
Author Organization [facility] Address [address] [place] [address] Care Team Providers Care Elastic Yarn Twister Name Role Phone Bucky Boone MD Primary Care Provider [phone] Reason for Referral * Radiology Services (Routine/Next Available) - Authorization Not Required Specialty Diagnoses / Procedures Referred By Contac t Referred To Contact Diagnoses Right hip pain Procedures FL GUIDED LOCALIZATION, ASPIRATION, INJECTION, BIOPSY Paulina Powell MD Phone: tel: fax: [facility] Referral ID Status Reason Start Date Expiration Date Visits Requested Visits Authorized [id number] Authorization Not Required 3 1 1 * Consult (Routine/Next Available) - Closed Specialty Diagnoses / Procedures Referred By Contac t Referred To Contact Orthopedic Surgery Diagnoses Right hip pain Lumbar radiculopathy Paulina Powell MD Phone: tel: fax: [facility] [address], [address] [place] [address] Phone: tel: fax: Referral ID Status Reason Start Date Expiration Date V isits Requested Visits Authorized [id number] Closed Specialty Services Required 11/25/2023 1 1 Question Answer Reason for Request: SI vs. hip vs. lumbar origin * Radiology Services (Routine/Next Available) - Authorized Specialty Diagnoses / Procedures Referred By Contac t Referred To Contact Radiology Diagnoses Right hip pain Lumbar radiculopathy Procedures MR LUMBAR SPINE WO CONTRAST Paulina Powell MD Phone: tel: fax: [facility] Referral ID Status Reason Start Date Expiration Date V isits Requested Visits Authorized [id number] Authorized 11/26/2023 01/24/2024 1 1 Reason for Visit * Reason Comments Follow-up * Referral (Routine) - Authorization Not Required Specialty Diagnoses / Procedures Referred By Lisa t Referred To Contact Orthopedic Surgery Diagnoses Pain in right hip Maria Luisa Valerio MD [address] [place] [address] Phone: tel: fax: [facility] [address], [address] [place] [address] Phone: tel: fax: Referral ID Status Reason Start Date Expiration Date Visits Requested Visits Authorized [id number] Authorization Not Required 1 1 Encounter Details Date Type Department Care Team (Latest Contact Info) Description 11/25/2023 14:00 EST Office Visit [facility] [address], [address] [place], [place] [id number] Paulina Powell MD [address] [place] [address] [address] [place] [address] Right hip pain (Primary Dx); Lumbar radiculopathy Social History Tobacco Use Types Packs/Day Years Used Date Smoking Tobacco: Never Assessed Comments Unknown Sex and Gender Information Value Date Recorded Sex Assigned at Female 03/04/2024 9:14 EDT Legal Sex Female 18:21 EST Gender Identity Female 12/31/2023 13:23 EST Sexual Orientation Not on file documented as of this encounter Last Filed Vital Signs Vital Sign Reading Time Taken Comments Blood Pressure - - Pulse 79 11/25/2023 1359 EST Temperature - - Respiratory Rate - - Oxygen Saturation 99% 11/25/2023 1359 EST Inhaled Oxygen Concentration - - Weight - - Height - - Body Mass Index - - documented in this encounter Progress Notes * Erica Carrasquillo MA - 11/25/2023 1400 EST Jenn presents today for an evaluation of her right hip Referred [facility] 10/20/23 no information given on referral. No XR right hip noted XR right hip ordered * Paulina Powell MD - 11/25/2023 1400 EST Orthopaedic Surgery Office Note Jenn Borrero 1965 [id number] Subjective: Jenn Borrero is a very pleasant 58 y.o. female who presents in follow-up for their right hip pain. They are feeling pain in the anterolateral hip. Presently they are experiencing pain with sitting and with driving and sleeping. They have been doing home exercises for it. They deny injury. There is no problem list on file for this patient. Objective: Patient Vitals for the past 24 hrs: Pulse SpO2 11/25/23 1359 79 99 % Gen- awake alert appropriate in no acute distress Right hip- Hip flexion, internal rotation, external rotation, flexion, abduction, adduction strength all tested. Palpated for tenderness over greater trochanteric bursa and provocative testing performed. Examination was notable for the following- pain with extremes of flexion and internal and external rotation, but reasonable arc of motion Light touch sensation intact in L2- S1 distribution with 5/5 strength to EHL /TA/GSC/knee flexion/ knee extension. Foot warm and well perfused. Imaging: Xrays of right hip show mild to moderate degenerative changes with joint space narrowing, osteophyte formation and sclerosis. Assessment/Plan: Jenn Borrero is a 58 y.o. female who presents for right hip pain. On exam and withwhat she is describing, not sure if this is coming from hip joint itself, SI joint or lumbar radiculopathy. Will get her set up for an intra-articular injection as well as lumbar MRI to further evaluate. We will see back in follow-up for this telemed after injection. Paulina Powell MD Orthopaedics and Sports Medicine [facility] [address] [place], [place] documented in this encounter Plan of Treatment Scheduled Referrals Name Type Priority Associated Diagnoses Orde r Schedule AMB CONS/FOLLOW UP ORTHOPEDICS - [facility] Outpatient Referral Routine/Next Available Right hip pain Lumbar radiculopathy Expected: 12/02/2023 (Approximate), Expires: 11/25/2024 documented as of this encounter Results * FL GUIDED INJECT/ASPIR RIGHT HIP (12/31/2023 14:42 EST) Anatomical Region Laterality Modality Radio Fluoroscop y 12/31/2023 15:2 9 EST Impressions 12/31/2023 15:29 EST 1. Right hip fluoroscopic guided joint injection performed without immediate complication. [id number] Narrative 12/31/2023 15:29 EST Exam: Fluoroscopic guided right hip injection Indication: Right hip;M25.551:Right hip pain Procedure: Following a discussion of the risks and benefits associated with this procedure (including, but not limited to; infection, bleeding, pain, damage to joint), informed verbal and written consent was obtained. Fluoroscopy time 0.68 minutes. The skin over the right hip was cleaned and draped in the usual sterile fashion. 5 mL of 1% lidocaine was placed for local anesthesia. A 3-1/2 inch 22-gauge spinal needle was then directed into the right hip joint utilizing an oblique anterior approach under fluoroscopic guidance. 3 mL of the Omnipaque-300 was placed to confirm position. 4 mL of a solution containing 1 mL triamcinolone 40 mg/mL and 3 mL 1% lidocaine was administered. The needle was withdrawn and a sterile dressing applied. No immediate complications were experienced. Procedure Note Don Chu MD - 12/31/2023 Exam: Fluoroscopic guided right hip injection Indication: Right hip;M25.551:Right hip pain Procedure: Following a discussion of the risks and benefits associatedwith this procedure (including, but not limited to; infection, bleeding,pain, damage to joint), informed verbal and written consent was obtained.Fluoroscopy time 0.68 minutes. The skin over the right hip was cleaned and draped in the usual sterilefashion. 5 mL of 1% lidocaine was placed for local anesthesia. A 3-1/2inch 22-gauge spinal needle was then directed into the right hip jointutilizing an oblique anterior approach under fluoroscopic guidance. 3 mLof the Omnipaque-300 was placed to confirm position. 4 mL of a solutioncontaining 1 mL triamcinolone 40 mg/mL and 3 mL 1% lidocaine wasadministered. The needle was withdrawn and a sterile dressing applied. Noimmediate complications were experienced. IMPRESSION 1. Right hip fluoroscopic guided joint injection performed withoutimmediate complication. [id number] us Paulina Powell MD IMG FLUOROSCOPY ORDERAB LES Final Result * MR LUMBAR SPINE WO CONTRAST (12/08/2023 6:56 EST) Anatomical Region Laterality Modality Spine Magnetic Resonan ce 12/08/2023 10:3 9 EST Impressions 12/08/2023 10:39 EST 1. ??Discopathy, including moderate at L5-S1. 2. ??Facet arthrosis, including moderate bilaterally at L4-L5 with associated mild periarticular bone marrow edema. 3. ??No significant spinal stenosis. 4. ??Neuroforaminal stenosis, including mild-moderate bilaterally at L4-L5. 5. ??No acute bone findings. 6. ??Please see detailed [id number]-rx-adapq findings above. [id number] Narrative 12/08/2023 10:39 EST MR LUMBAR SPINE WO CONTRAST ?? Signs and Symptoms/Comments: ??? hip pain with spine origina; Low back pain, symptoms persist with > 6 wks treatment; ? hip pain with spine origina;M25.551:Right hip pain;M54.16:Lumbar radiculopathy Comparisons: None. Technique: MR lumbar spine without contrast was performed with the following sequences: Sagittal T2, sagittal T1, sagittal STIR, axial T1, axial T2, coronal T2 fat-sat. FINDINGS: Bones: 5 lumbar-type vertebral bodies. Slight anterolisthesis of L4 on L5 on this nonweightbearing study. No definite underlying L4 pars defects visible, however CT would be more definitive. Scattered small osseous hemangiomas incidentally noted. No acute fracture or aggressive-appearing bony lesion identified. Mild periarticular bone marrow edema abutting the L4-L5 facet joints, likely reactive/stress- related. Spinal Cord and Cauda Equina: Lower spinal cord unremarkable. Cauda equina terminates normally at the L1-L2 level. Cauda equina normal in signal and morphology. Discopathy: Discopathy, including moderate at L5-S1, and mild at the remaining lumbar levels. Facet Arthrosis: Facet arthrosis, including moderate bilaterally at L4-L5, with associated mild periarticular bone marrow edema. Mild-moderate bilateral L5-S1 facet arthrosis also noted. Segmental Analysis: T12-L1: Unremarkable. L1-L2: Unremarkable. L2-L3: Shallow broad-based posterior disc bulge. No spinal stenosis. Mild bilateral neuroforaminal stenosis. L3-L4: Shallow broad-based posterior disc bulge. No spinal stenosis. Mild bilateral neuroforaminal stenosis. L4-L5: Slight anterolisthesis of L4 on L5, with associated uncovering and shallow broad-based bulging of the disc. No significant spinal stenosis. Mild-moderate bilateral neuroforaminal stenosis with mass effect on the exiting L4 nerve roots. L5-S1: Minimal shallow central disc protrusion/herniation. No spinal stenosis. Mild bilateral neuroforaminal stenosis. Sacroiliac Joints: Unremarkable. Soft Tissues: Paraspinal soft tissues appear unremarkable. Bilateral simple- appearing renal cysts incidentally noted, measuring up to 2 cm along the left kidney lower pole. Procedure Note Jeffy Torres MD - 12/08/2023 MR LUMBAR SPINE WO CONTRAST Signs and Symptoms/Comments: ? hip pain with spine origina; Low backpain, symptoms persist with > 6 wks treatment; ? hip pain with spineorigina;M25.551:Right hip pain;M54.16:Lumbar radiculopathy Comparisons: None. Technique: MR lumbar spine without contrast was performed with thefollowing sequences: Sagittal T2, sagittal T1, sagittal STIR, axial T1,axial T2, coronal T2 fat-sat. FINDINGS: Bones: 5 lumbar-type vertebral bodies. Slight anterolisthesis of L4 on L5on this nonweightbearing study. No definite underlying L4 pars defectsvisible, however CT would be more definitive. Scattered small osseoushemangiomas incidentally noted. No acute fracture or aggressive-appearingbony lesion identified. Mild periarticular bone marrow edema abutting theL4-L5 facet joints, likely reactive/stress-related. Spinal Cord and Cauda Equina: Lower spinal cord unremarkable. Cauda equinaterminates normally at the L1-L2 level. Cauda equina normal in signal andmorphology. Discopathy: Discopathy, including moderate at L5-S1, and mild at theremaining lumbar levels. Facet Arthrosis: Facet arthrosis, including moderate bilaterally at L4-L5,with associated mild periarticular bone marrow edema. Mild-moderatebilateral L5-S1 facet arthrosis also noted. Segmental Analysis: T12-L1: Unremarkable. L1-L2: Unremarkable. L2-L3: Shallow broad-based posterior disc bulge. No spinal stenosis. Mildbilateral neuroforaminal stenosis. L3-L4: Shallow broad-based posterior disc bulge. No spinal stenosis. Mildbilateral neuroforaminal stenosis. L4-L5: Slight anterolisthesis of L4 on L5, with associated uncovering andshallow broad-based bulging of the disc. No significant spinal stenosis.Mild-moderate bilateral neuroforaminal stenosis with mass effect on theexiting L4 nerve roots. L5-S1: Minimal shallow central disc protrusion/herniation. No spinalstenosis. Mild bilateral neuroforaminal stenosis. Sacroiliac Joints: Unremarkable. Soft Tissues: Paraspinal soft tissues appear unremarkable. Bilateralsimple- appearing renal cysts incidentally noted, measuring up to 2 cmalong the left kidney lower pole. IMPRESSION 1. Discopathy, including moderate at L5-S1. 2. Facet arthrosis, including moderate bilaterally at L4-L5 withassociated mild periarticular bone marrow edema. 3. No significant spinal stenosis. 4. Neuroforaminal stenosis, including mild-moderate bilaterally atL4-L5. 5. No acute bone findings. 6. Please see detailed [id number]-[id number] findings above. [id number] us Paulina Powell MD G MRI ORDERABLES Joy elisabeth Result * XR HIP 1 VIEW WITH ORTHOPELVIS RIGHT (11/25/2023 14:13 EST) Anatomical Region Laterality Modality Lower Extremities Right Computed Radio graphy 11/25/2023 14:1 1 EST Impressions 11/26/2023 14:35 EST No acute findings. THIS DOCUMENT HAS BEEN ELECTRONICALLY SIGNED BY BINA CALDERA MD FOR ANY QUESTIONS OR CONCERNS REGARDING THIS REPORT PLEASE CALL [facility] AT [phone] Narrative 11/26/2023 14:35 EST PROCEDURE INFORMATION: Exam: XR Right Hip Exam date and time: 11/25/2023 2:11 PM Age: 58 years old Clinical indication: Pain in right hip; Hip pain; Additional info: Right hip pain TECHNIQUE: Imaging protocol: Radiologic exam of the right hip. Views: 2 or 3 views hip with pelvis when performed. COMPARISON: No relevant prior studies available. FINDINGS: Bones/joints: ??No significant degenerative changes of the right hip. No acute fracture or dislocation. Soft tissues: Unremarkable. Procedure Note Bina Caldera MD - 11/26/2023 PROCEDURE INFORMATION: Exam: XR Right Hip Exam date and time: 11/25/2023 2:11 PM Age: 58 years old Clinical indication: Pain in right hip; Hip pain; Additional info: Right hip pain TECHNIQUE: Imaging protocol: Radiologic exam of the right hip. Views: 2 or 3 views hip with pelvis when performed. COMPARISON: No relevant prior studies available. FINDINGS: Bones/joints: No significant degenerative changes of the right hip. No acute fracture or dislocation. Soft tissues: Unremarkable. IMPRESSION No acute findings. THIS DOCUMENT HAS BEEN ELECTRONICALLY SIGNED BY BINA CALDERA MD FOR ANY QUESTIONS OR CONCERNS REGARDING THIS REPORT PLEASE CALL [facility] [phone] Paulina Powell MD IMG DIAGNOSTIC IMAGING ORDERABLES Final Result documented in this encounter Visit Diagnoses Diagnosis Right hip pain- Primary Pain in joint, pelvic region and thigh Lumbar radiculopathy Thoracic or lumbosacral neuritis or radiculitis, unspecified Right hip pain Pain in joint, pelvic region and thigh Lumbar radiculopathy Thoracic or lumbosacral neuritis or radiculitis, unspecified Right hip pain Pain in joint, pelvic region and thigh documented in this encounter Historical Medications * This list may reflect changes made after this encounter. UNABLE TO FIND Med Name: Medical Cannabis cholecalciferol, Vitamin D3, 50 mcg (2,000 unit) tablet Take by mouth daily. acetylcysteine (NAC) 600 mg capsule Take 2 Capsules by mouth 2 times daily. 11/06/2023 lithium (LITHOBID) 300 mg CR tablet Take 1 Tablet by mouth at bedtime. 10/21/2023 Magnesium 250 mg tablet Take by mouth daily as needed. ibuprofen (MOTRIN) 600 mg tablet Take 1 Tablet by mouth every 6 hours as needed. 07/09/2023 02/17/2024 added in this encounter Care Teams Elastic Yarn Twister Relationship Specialty Start Date End Date Bucky Boone MD [address] [place] [address] PCP - General 10/05/15 12/30/23 documented as of this encounter
--- OUTSIDE RECORDS SUMMARY | 2024-11-17 12:50 | XMS_ITS | Encounter Summary ---
Author Organization [facility] Address [address] [place] [address] Care Team Providers Care Roll On Worker Name Role Phone Maria Luisa Valerio MD Primary Care Provider [phone] Reason for Referral * Consult (Routine/Next Available) - Specialty Report Received Specialty Diagnoses / Procedures Referred By Lisa alvarez Referred To Contact Family Medicine Diagnoses Chronic right-sided low back pain without sciatica Chronic right sacroiliac joint pain Shanon Henley PA-C [address] [facility] [address] [place] [address] Phone: tel: fax: Maddy Cardoso MD [address] [place] [address] Phone: tel: fax: Referral ID Status Reason Start Date Expiration Date Visits Requested Visits Authorized [id number] Specialty Report Received Specialty Services Required 04/15/2024 1 1 Question Answer Possible procedure: Joint aspiration/injection Reason for Request: right SI joint injection Reason for Visit * Reason Comments Pain Follow-up * Consult (Routine/Next Available) - Closed Specialty Diagnoses / Procedures Referred By Lisa alvarez Referred To Contact Orthopedic Surgery Diagnoses Right hip pain Lumbar radiculopathy Paulina Powell MD Phone: tel: fax: [facility] [address] [place] [address] Phone: tel: fax: Referral ID Status Reason Start Date Expiration Date V isits Requested Visits Authorized [id number] Closed Specialty Services Required 11/25/2023 1 1 Encounter Details Date Type Department Care Team (Late st Contact Info) Description 04/15/2024 11:00 EDT Office Visit [facility] [address], [address] [place], [place] [address] Shanon Henley PA-C [address] [facility] [address] [place] [address] Chronic right-sided low back pain without sciatica (Primary Dx); Chronic right sacroiliac joint pain Social History Tobacco Use Types Packs/Day Years Used Date Smoking Tobacco: Never Smokeless Tobacco: Never Alcohol Use Standard Drinks/Week Comments Yes 0 (1 standard drink = 0.6 oz pur e alcohol) rare Comments Unknown Sex and Gender Information Value Date Recorded Sex Assigned at Female 03/04/2024 9:14 EDT Legal Sex Female 18:21 EST Gender Identity Female 12/31/2023 13:23 EST Sexual Orientation Not on file documented as of this encounter Last Filed Vital Signs Vital Sign Reading Time Taken Comments Blood Pressure 122/78 04/15/2024 1101 EDT Pulse 83 04/15/2024 1101 EDT Temperature - - Respiratory Rate 18 04/15/2024 1101 EDT Oxygen Saturation 98% 04/15/2024 1101 EDT Inhaled Oxygen Concentration - - Weight - - Height - - Body Mass Index - - documented in this encounter Progress Notes * Shanon Henley PA-C - 04/15/2024 1100 EDT History of Present Illness: Jenn is a 58-year-old female with history of bipolar disorder, CKD presenting for reevaluation of right hip pain that had been present for several months at the time of our last office visit on 01/13/2024. Her pain was most aggravated with driving, and at night. When shewas up and moving around her pain would be in a better place. It would start in the region of the hip just above the area of the greater trochanter and radiated down the lateral aspect of the thigh though she also indicated some pain towards the area of the sacroiliac joint. She had had an intra-articular hip injection that gave her 1 or 2 days of relief, during which she noticed more pain towards the low back. She did report some low back pain with activity such as vacuuming and standing to dothe dishes which was relieved with sitting. Sacroiliac joint provocative maneuvers were equivocal, and she had some positive facet loading maneuvers. Her symptoms were in the setting of a dynamic grade 1 spondylolisthesis at L4-5. Because of the combination of low back and leg symptoms, we had decided to trial a right L4-5 MADELINE, which was done on 03/04/2024. Today, Jenn presents reporting she had about 50% relief from her L4-5 epidural steroid injection. She has not had nearly the episodes of right leg pain that she had previously been having. She does continue to have low back pain that gets up to a 6 out of 10 in severity if she does extensive yard work, or when she is turning over in bed. This is in the right side of her low back. She did have an episode since I saw her last where she was switched from lithium to Vraylar for herbipolar, and she had a significant increase in pain spanning from her low back up towards the thoracic spine, and radiating down both legs with terrible restless leg syndrome. The spasms in her back were excruciating. The symptoms lasted for about a week and a half until they discontinued her off of this medication and put her back on the lithium. Conservative Treatment: Meds: Ibuprofen as needed PT: None recently Chiropractics, who prescribed HEP HEP: Continues with some regularity Injection History: Right intra-articular hip injection 12/31/2023 relief for 1 to 2 days L4-5 MADELINE, RPA 03/04/2024 greater than 80% relief for a couple of weeks, reaggravated after doing yardwork Review of Systems: As per HPI. I reviewed medications, allergies, medical, surgical and social history with the patient. Physical Examination: Current pain: No pain Pain at worst: 6 out of 10 Well developed, well-nourished 58-year-old female, in no acute distress, appearing comfortable Breathing non-labored Skin is warm and dry Patient stands with normal upright posture Ambulates with nonantalgic gait Patient without any significant tenderness to palpation over lumbar spinous processes or paraspinalmusculature. Some minimal tenderness over the region of the lumbosacral junction on the right. Positive Aman on the right, and thigh thrust test also positive. Image Review: Dynamic L4-5 spondylolisthesis without any spinal or foraminal stenosis noted when reviewing lumbarspine MRI and plain films Assessment: Grade 1 dynamic L4-5 spondylolisthesis Right low back pain with lumbar radiculopathy, improved Right sacroiliac joint pain Jenn Borrero is a pleasant 58-year-old female presenting for reevaluation of her right-sided back pain that radiated to the right thigh. She did have about 50% relief in her pain with the epidural steroid injection, and notes that she is no longer having frequent episodes of the right leg pain. At this point, she continues to have pain that seems to be in the region of the sacroiliac joint, with some positive provocative maneuvers. Her history is more supportive of the sacroiliac joint pathology at this time as well. We did discuss that there is also the possibility of a facet agenic aspect to her pain. We decided to trial in ultrasound-guided sacroiliac joint injection on the right to see if this mitigates the rest of her pain. She would like to reach out to the office a few weeks after this is done to let us know how her pain responds. Patient encouraged to call with any questions, concerns, or worsening of condition. I spent a total of 30 minutes on the date of this encounter meeting with the patient and reviewing documentation/coordinating care as described in the above note. Plan: Right ultrasound-guided SI joint injection Follow-up via phone call 2 to 3 weeks after injection This document was produced using [employer] ([employer]) dictation. Please excuse any grammatical or verbal errors. documented in this encounter Plan of Treatment Scheduled Referrals Name Type Priority Associated Diagnoses Order Schedule AMB CONS/FOLLOW UP FAMILY MEDICINE [place]ED[place] [facility] [place]ine/Next Available Chronic right-sided low back pain without sciatica Chronic right sacroiliac joint pain Expected: 04/22/2024 (Approximate), Expires: 04/15/2025 documented as of this encounter Visit Diagnoses Diagnosis Chronic right-sided low back pain without sciatica- Primary Chronic right sacroiliac joint pain Disorders of sacrum documented in this encounter Historical Medications * This list may reflect changes made after this encounter. VRAYLAR 1.5 mg capsule Take 1 Capsule by mouth daily. 03/12/2024 added in this encounter Care Teams Roll On Worker Relationship Specialty Start Date End Date Maria Luisa Valerio MD [address] [place] [address] PCP - General 12/31/23 documented as of this encounter
--- OUTSIDE RECORDS SUMMARY | 2024-11-17 12:50 | XMS_ITS | Encounter Summary ---
Author Organization [facility] Address [address] [place] [address] Care Team Providers Care School Bus Driver/Mechanic Name Role Phone Unavailable Primary Care Provider Unavailabl e Encounter Details Date Type Department Care Team (Late st Contact Info) Description 03/15/2009 Orders Only [facility] - [facility] [place] [address] [place] [address] Ana Laura Jorge MD [address] [place] [phone] Social History Tobacco Use Types Packs/Day Years [...] Procedure Name Priority Date/Time Associated Diagnosis Comments CYTOPATHOLOGY Routine 03/15/2009 0:00 EDT documented in this encounter Results * CYTOPATHOLOGY (03/15/2009 0:00 EDT) Pathology Report: CYTOPATHOLOGY REPORT ? Reports generated via electronic interface contain original data; ? however they are lacking the format of the original report. ? Caution should be taken when reading/interpreti ng unformatted reports. ? Name: ? MARISELA EDWARDS ? Accession #: ? [id number] ? : ? 1965 (Age: 43) ??F ?Collect Date: ? 03/15/2009 ? Location: ? [facility] ? Receive Date: ? 03/17/2009 ? Provider: ?ANA LAURA JORGE MD ? Copy to: ? Specimen/Source: ?Pap Test, Cervix/Endocervix, ThinPrep Imaging System ? with manual evaluation ? Last Menstrual Period: ? 3/19/09 ? SPECIMEN ADEQUACY ? Satisfactory for Evaluation ? - transformation zone component present ? GENERAL CATEGORIZATION ? Negative for Intraepithelial Lesion or Malignancy ? Document reviewed and electronically signed by: ? Salvador Carver, CT(ASCP) ? Report Date: ??03/22/2009 10:44 ? End of Report ? [facility] 03/15/2009 03/17/2009 us Ana Laura Jorge MD PATHOLOGY ORDERABLES Final Res ult Performing Organization Address City/State/[facility] Co de Phone Number [facility] [address] [place] [address] documented in this encounter Visit Diagnoses Not on filedocumented in this encounter
--- OUTSIDE RECORDS SUMMARY | 2024-11-17 12:50 | XMS_ITS | Referral Summary ---
Author Organization [facility] Address [address] [place] [address] Care Team Providers Care Drum Sealer Name Role Phone Maria Luisa Valerio MD Primary Care Provider [phone] Allergies Active Allergy Reactions Criticality Noted Date Comments Latex, Natural Rubber 06/26/2023 Cariprazine 05/07/2024 Medications Magnesium 250 mg tablet Take by mouth daily as needed. Active lithium (LITHOBID) 300 mg CR tablet Take 1 Tablet by mouth at bedtime. 10/21/2023 Active acetylcysteine (NAC) 600 mg capsule Take 2 Capsules by mouth 2 times daily. 11/06/2023 Active cholecalciferol , Vitamin D3, 50 mcg (2,000 unit) tablet Take by mouth daily. Active UNABLE TO FIND Med Name: Medical Cannabis Active naproxen sodium (ALEVE) 220 mg capsule Take 220 mg by mouth every 12 hours. Active VRAYLAR 1.5 mg capsule Take 1 Capsule by mouth daily. 03/12/2024 Active Active Problems No known active problems Social History Tobacco Use Types Packs/Day Years Used Date Smoking Tobacco: Never Smokeless Tobacco: Never Tobacco Cessation:Counseling Given: Not Answered Alcohol Use Standard Drinks/Week Comments Yes 0 (1 standard drink = 0.6 oz pur e alcohol) rare Comments Unknown Sex and Gender Information Value Date Recorded Sex Assigned at Female 03/04/2024 9:14 EDT Legal Sex Female 18:21 EST Gender Identity Female 12/31/2023 13:23 EST Sexual Orientation Not on file Last Filed Vital Signs Vital Sign Reading Time Taken Comments Blood Pressure 122/78 04/15/2024 1101 EDT Pulse 83 04/15/2024 1101 EDT Temperature 36.7 ??C (98.1 ??F) 03/04/2024 0908 EDT Respiratory Rate 18 04/15/2024 1101 EDT Oxygen Saturation 98% 04/15/2024 1101 EDT Inhaled Oxygen Concentration - - Weight 69.4 kg (153 lb) 03/04/2024 0908 EDT Height 158.8 cm (5' 2.5) 03/04/2024 0908 EDT Body Mass Index 27.54 03/04/2024 0908 EDT Plan of Treatment Not on file Insurance [id number] [place] [address] [facility] Care Teams Drum Sealer Relationship Specialty Start Date End Date Maria Luisa Valerio MD [address] [place] [address] PCP - General 12/31/23
--- OUTSIDE RECORDS SUMMARY | 2024-11-17 12:50 | XMS_ITS | Encounter Summary ---
Author Organization [facility] Address [address] [place] [address] Care Team Providers Care Electrical Continuity Tester Name Role Phone Maria Luisa Valerio MD Primary Care Provider Reason for Referral * Radiology Services (Routine/Next Available) - Authorization Not Required Specialty Diagnoses / Procedures Referred By Contac t Referred To Contact Diagnoses Right hip pain Procedures FL GUIDED LOCALIZATION, ASPIRATION, INJECTION, BIOPSY Paulina Powell MD Phone: tel: fax: [facility] Referral ID Status Reason Start Date Expiration Date Visits Requested Visits Authorized [id number] Authorization Not Required 3 1 1 Reason for Visit * Radiology Services (Routine/Next Available) - Authorization Not Required Specialty Diagnoses / Procedures Referred By Contac t Referred To Contact Diagnoses Right hip pain Procedures FL GUIDED LOCALIZATION, ASPIRATION, INJECTION, BIOPSY Paulina Powell MD Phone: tel: fax: [facility] Referral ID Status Reason Start Date Expiration Date Visits Requested Visits Authorized [id number] Authorization Not Required 3 1 1 Encounter Details Date Type Department Care Team (Latest Contact Info) Description 12/31/2023 13:24 EST - 12/31/2023 23:59 EST Hospital Encounter [facility] - [facility] Xray [address] [place], [place] [address] Right hip pain Discharge Disposition: Home or Self Care Social History Tobacco Use Types Packs/Day Years Used Date Smoking Tobacco: Never Assessed Comments Unknown Sex and Gender Information Value Date Recorded Sex Assigned at Female 03/04/2024 9:14 EDT Legal Sex Female 18:21 EST Gender Identity Female 12/31/2023 13:23 EST Sexual Orientation Not on file documented as of this encounter Medications at Time of Discharge acetylcysteine (NAC) 600 mg capsule Take 2 Capsules by mouth 2 times daily. 11/06/2023 cholecalciferol, Vitamin D3, 50 mcg (2,000 unit) tablet Take by mouth daily. lithium (LITHOBID) 300 mg CR tablet Take 1 Tablet by mouth at bedtime. 10/21/2023 Magnesium 250 mg tablet Take by mouth daily as needed. UNABLE TO FIND Med Name: Medical Cannabis ibuprofen (MOTRIN) 600 mg tablet Take 1 Tablet by mouth every 6 hours as needed. 07/09/2023 02/17/2024 documented as of this encounter Discharge Disposition Disposition Code Departure Means Destination Home or Self Care documented in this encounter Plan of Treatment Not on file documented as of this encounter Procedures Procedure Name Priority Date/Time Associated Diagnosis Comments FL GUIDED LOCALIZATION, ASPIRATION, INJECTION, BIOPSY Routine 12/31/2023 14:42 EST Right hip pain documented in this encounter Results * FL GUIDED INJECT/ASPIR RIGHT HIP (12/31/2023 14:42 EST) Anatomical Region Laterality Modality Radio Fluoroscop y 12/31/2023 15:2 9 EST Impressions 12/31/2023 15:29 EST 1. Right hip fluoroscopic guided joint injection performed without immediate complication. [id number] Narrative 12/31/2023 15:29 EST Exam: Fluoroscopic guided [...] fluoroscopic guided joint injection performed withoutimmediate complication. [id number] us Paulina Powell MD IMG FLUOROSCOPY ORDERAB LES Final Result documented in this encounter Visit Diagnoses Diagnosis Right hip pain Pain in joint, pelvic region and thigh documented in this encounter Administered Medications Inactive Administered Medications - up to 3 most recent administrations Medication Order MAR Action Action Date Dose Rate Site iohexoL (OMNIPAQUE 300) injection 10 mL 10 mL, intra-articular, Once in imaging, 1 dose, Starting on Fri12/31/23 at 1355, Until Fri12/31/23 at 1415, Routine Given 12/31/2023 14:15 EST 10 mL lidocaine 1 % injection 10 mL 10 mL, intra-articular, Once in imaging, 1 dose, Starting on Fri12/31/23 at 1355, Until Fri12/31/23 at 1415, Routine, Imaging Protocol Orders Given 12/31/2023 14:15 EST 10 mL triamcinolone acetonide (KENALOG-40) injection 40 mg 40 mg, intra-articular, NOW X1, 1 dose, On 12/31/23 at 1415, Routine, Imaging Protocol Orders Given 12/31/2023 14:20 EST 40 mg documented in this encounter Care Teams Electrical Continuity Tester Relationship Specialty Start Date End Date Mari aLuisa Valerio MD [address] [place] [address] PCP - General 12/31/23 documented as of this encounter
--- OUTSIDE RECORDS SUMMARY | 2024-11-17 12:50 | XMS_ITS | Encounter Summary ---
Author Organization [facility] Address [address] [place] [address] Care Team Providers Care Insole Buffer Name Role Phone Bucky Boone MD Primary Care Provider [phone] Reason for Visit * Reason Onset Date Comments Other 12/22/2023 Encounter Details Date Type Department Care Team (Late st Contact Info) Description 12/22/2023 Telephone [facility] - [facility] [place] [place] Orthopedics & Sport Medicine [address], [address] [place] [address] Paulina Powell MD [address] [place] [address] [address] [place] [address] Other Social History Tobacco Use Types Packs/Day Years Used Date Smoking Tobacco: Never Assessed Comments Unknown Sex and Gender Information Value Date Recorded Sex Assigned at Female 03/04/2024 9:14 EDT Legal Sex Female 18:21 EST Gender Identity Female 12/31/2023 13:23 EST Sexual Orientation Not on file documented as of this encounter Miscellaneous Notes * Telephone Encounter - Anna Marie Bennett RN - 12/22/2023 1614 EST Called and spoke with Ms. Borrero. She will move forward with the injection and the telemed appt wasscheduled. * Telephone Encounter - Paulina Powell MD - 12/22/2023 1527 EST OK to proceed with the hip injection. Can do telemed about 6 weeks after that is done * Telephone Encounter - Anna Marie Bennett RN - 12/22/[address] Powell - the MRI was 12/08/2023 at [facility] [place] [place] IMPRESSION 1. Discopathy, including moderate at L5-S1. 2. Facet arthrosis, including moderate bilaterally at L4-L5 with associated mild periarticular bonemarrow edema. 3. No significant spinal stenosis. 4. Neuroforaminal stenosis, including mild-moderate bilaterally at L4-L5. 5. No acute bone findings. 6. Please see detailed [id number] findings above. The hip fluoro guided injection is scheduled for 12/31/23. She does not have a follow up scheduled with you, but has a visit scheduled with spine on 01/13/24. * Telephone Encounter - Katarina Pike - 12/22/2023 1113 EST Patient is calling and asking if you had a chance to review the MRI and if so, should she precede with the hip injection on the 31 of December? Please advise - Thank you documented in this encounter Plan of Treatment Not on file documented as of this encounter Visit Diagnoses Not on filedocumented in this encounter Care Teams Insole Buffer Relationship Specialty Start Date End Date Bucky Boone MD [address] [place] [address] PCP - General 10/05/15 12/30/23 documented as of this encounter
--- OUTSIDE RECORDS SUMMARY | 2024-11-17 12:50 | XMS_ITS | Encounter Summary ---
Author Organization [facility] Address [address] [place] [address] Care Team Providers Care Outplacement Consultant Name Role Phone Bucky Boone MD Primary Care Provider [phone] Encounter Details Date Type Department Care Team (Late st Contact Info) Description 12/18/2022 Orders Only [facility] [place] [address] [place], [place] [id number] Nathan Kenney DPM [address] [facility] [address] [place], [place] [address] Social History Tobacco Use Types Packs/Day Years [...] on filedocumented in this encounter Care Teams Outplacement Consultant Relationship Specialty Start Date End Date Bucky Boone MD [address] [place], [place] [address] PCP - General 10/05/15 12/30/23 documented as of this encounter
--- OUTSIDE RECORDS SUMMARY | 2024-11-17 12:50 | XMS_ITS | Encounter Summary ---
Author Organization [facility] Address [address] [place] [address] Care Team Providers Care Awning Hanger Supervisor Name Role Phone Maria Luisa Valerio MD Primary Care Provider Reason for Visit * Reason Onset Date Comments Appointment Related 01/13/2024 Encounter Details Date Type Department Care Team (Late st Contact Info) Description 01/13/2024 Telephone [facility] [address] [place], [place] [id number] Monisha Scruggs MD [address] [place] [address] [place] [phone] Appointment Related Social History Tobacco Use Types Packs/Day Years Used Date Smoking Tobacco: Never Assessed Comments Unknown Sex and Gender Information Value Date Recorded Sex Assigned at Female 03/04/2024 9:14 EDT Legal Sex Female 18:21 EST Gender Identity Female 12/31/2023 13:23 EST Sexual Orientation Not on file documented as of this encounter Miscellaneous Notes * Telephone Encounter - Arlene Moreno - 01/13/2024 3688 EST Reason for Call: Appointment Related Summary/Symptoms: SCHEDULE LESI Appointment Offered? Yes 03/04/24 Does Nurse Need to Follow Up? No Follow Up Needed? PT ON WAIT LIST Alrene Moreno 01/13/2024 17:54 documented in this encounter Plan of Treatment Not on file documented as of this encounter Visit Diagnoses Not on filedocumented in this encounter Care Teams Awning Hanger Supervisor Relationship Specialty Start Date End Date Maria Luisa Valerio MD [address] [place] [address] PCP - General 12/31/23 documented as of this encounter
--- OUTSIDE RECORDS SUMMARY | 2024-11-17 12:50 | XMS_ITS | Encounter Summary ---
Author Organization [facility] Address [facility] [place] [address] Care Team Providers Care Gang Vibrator Operator Name Role Phone Maria Luisa Valerio MD Primary Care Provider [phone] Reason for Visit * Consultation (Routine) - Closed Specialty Diagnoses / Procedures Referred By Contac t Referred To Contact Obstetrics and Gynecology Diagnoses Female genital prolapse, unspecified type Martina Stafford DO [address] [place] [address] [facility] Assistant Field Hockey Coach Specialties [address] [place] [phone] Referral ID Status Reason Start Date Expiration Date V isits Requested Visits Authorized [id number] Closed Consult, Test & Treat PCP Updated and/or Approved 03/24/2023 03/23/2024 6 6 Encounter Details Date Type Department Care Team (Latest Contact Info) Description 04/14/2023 12:30 PM EDT Office Visit Assistant Field Hockey Coach Specialties at [facility] [address] [place] [address] John Arguello MD [facility] OBSTETRICS [place] [address] Uterovaginal prolapse, incomplete (Primary Dx); Urinary frequency; Nocturia; Leukocytes in urine; Arthritis Social History Tobacco Use Types Packs/Day Years Used Date Smoking Tobacco: Never Assessed Sex and Gender Information Value Date Recorded Sex Assigned at Not on file Gender Identity Not on file Sexual Orientation Not on file documented as of this encounter Last Filed Vital Signs Vital Sign Reading Time Taken Comments Blood Pressure 132/84 04/14/2023 12:31 PM EDT Pulse - - Temperature - - Respiratory Rate - - Oxygen Saturation - - Inhaled Oxygen Concentration - - Weight 68.7 kg (151 lb 8 oz) 04/14/2023 12:31 PM EDT Height 160 cm (5' 3) 04/14/2023 12:31 PM EDT Body Mass Index 26.84 04/14/2023 12:31 PM EDT documented in this encounter Progress Notes * John Arguello MD - 04/14/2023 12:30 PM EDT Female Pelvic Medicine and Reconstructive Surgery @ [facility] Patient Name: Jenn Borrero Patient Primary Care Provider: Maria Luisa Valerio MD Patient Active Problem List Diagnosis Code ??? Uterovaginal prolapse, incomplete N81.2 ??? Bipolar disorder F31.9 ??? Arthritis M19.90 Chief Complaint: prolapse History of Present Illness: Ms. Borrero is a 57 y.o. old para 2 woman, seen at the kind request of Dr. Martina Stafford. She presents for evaluation and assessment of vaginal prolapse of 10 years' duration. She notes it is much more uncomfortable when walking, and standing upright. She tried a pessary and had a lot of vaginal discharge and found it uncomfortable. She wants to discuss surgical options as she does not find the pessary an acceptable long-term solution. Goals for this visit 1. Discuss options Urinary tract history Patient denies history of recurrent urinary tract infection. Patient denies history of pyelonephritis. Patient denies history of urinary tract abnormality. Patient denies history of nephrolithiasis. Patient denies history of hematuria. Bladder irritants: Fluid intake: Tea, water Caffeine intake: 1 cup of tea Cigarette smoking (packs, time, if quit when): no Alcohol: 1 whiskey per month Bladder Function Urinary incontinence: yes, very rare ICIQ-UI Short Form How often do you leak urine? Never 0 3 times per year About once a week or less often 1 2-3 times a week 2 About once a day 3 Several times a day 4 All the time 5 How much urine do you usually leak? None 0 x A small amount 1 A moderate amount 2 A large amount 3 Overall, how much does leaking interfere with your everyday life? 1 (0 not at all, 10 a great deal) ICIQ Sum the scores: 3 When does urine leak? (Check all that apply) Never - Urine does not leak rare Leaks before you can get to the toilet Leaks when you cough or sneeze Leaks when you are asleep Leaks when you are physically active/exercising Leaks when you have finished urinating or are dressed Leaks for no obvious reason Leaks all the time Pad use (per day): no Pad type: n/a Daytime voids: In AM more frequent, then every 3-4 hours Nocturia: 3 Previous urinary incontinence treatment (Medical/Behavioral/Surgical): PT Storage symptoms Urinary frequency Nocturia Stress urinary incontinence - leakage with exertion, cough/sneeze rare Urge urinary incontinence - leakage preceded immediately by urge to void Noctural enuresis - NOT IN ASSOCIATION WITH URGE Continuous urinary leakage Other: (e,g. giggle, intercourse-related) Bladder sensation Normal - aware of filling and increased sensation up to desire to void x Increased - feels an early and persistent need to void Reduced - aware of filling but NOT definite desire to void Absent - NO sensation of filling or need to void Non-specific - No specific bladder symptoms during filling or void Voiding symptoms None Slow stream Spraying x Intermittent stream - stop/start on > 1 occasion during void Straining - muscular effort to initiate, maintain OR improve stream Terminal dribble - prolonged final part of void At times Feeling of incomplete emptying Pelvic Organ Prolapse (POP) Any personally see or feel a vaginal bulge? yes What precipitates prolapse or symptoms of prolapse? When upright Previous treatment for POP (physical therapy, pessary, surgery)?: Tried a pessary Bowel Function Fecal incontinence (yes/no): Only with the flu Number of fecal incontinent episodes (day/week): n/a Number of bowel movements (day/week): Daily, two before done Defecatory Dysfunction: Symptom Presence Symptom Presence NONE Incomplete Emptying x Straining x Infrequent stools (<3 week) Splinting x Abdominal discomfort Loose stools Defecatory urgency Hard stools Other Sexual Function Active?: Yes, with prostate cancer, low interest now Pain with intercourse?: no If yes, insertional/Deep? n/a Desire to retain sexual function? n/a Past Medical History: Diagnosis Date ??? Arthritis Back, neck, fingers ??? Bipolar disorder ??? Cystocele with rectocele Past Surgical History: Procedure Laterality Date ??? FINGER SURGERY 1987 ??? KNEE ARTHROSCOPY Left 2001 OB History Para Term AB Living 3 2 2 0 1 2 SAB IAB Ectopic Multiple Live Births 1 0 0 0 2 # Outcome Date GA Lbr Ector/2nd Weight Sex Delivery Anes PTL Lv 3 SAB 2 Term 3.714 kg (8 lb 3 oz) Vag-Spont KAM 1 Term Vag-Spont KAM Outpatient Medications Marked as Taking for the 04/14/23 encounter (Office Visit) with John Arguello MD Medication Sig Dispense Refill ??? lithium 300 mg capsule Take 300 mg by mouth once. Once a day ??? cholecalciferol, Vitamin D3, (Vitamin D3) 50 mcg (2,000 unit) tablet Take by mouth. ??? magnesium 250 mg tablet Take by mouth. ??? lactobacillus rhamnosus, GG, (CULTURELLE) 10 billion cell Capsule Take 1 capsule by mouth daily. No Known Allergies Social History Socioeconomic History ??? Marital status: Spouse name: Not on file ??? Number of children: Not on file ??? Years of education: Not on file ??? Highest education level: Not on file Occupational History ??? Not on file Tobacco Use ??? Smoking status: Not on file ??? Smokeless tobacco: Not on file Substance and Sexual Activity ??? Alcohol use: Not on file ??? Drug use: Not on file ??? Sexual activity: Not on file Other Topics Concern ??? Not on file Social History Narrative , lives with , two terriers. [employer]. Two grandchildren. Social Determinants of Health Financial Resource Strain: Not on file Food Insecurity: Not on file Transportation Needs: Not on file Physical Activity: Not on file Housing Stability: Not on file Family History Problem Relation Age of Onset ??? Arthritis Mother ??? Hyperlipidemia Mother ??? Alcohol Use Disorder Father ??? Heart Disease Father ??? Hypertension Father ??? Mental Illness Father ??? Cerebrovascular Accident Father ??? Hypertension Sister ??? Type 2 Diabetes Paternal Grandmother Family history: denies history of gynecologic cancer ROS: Review of all other systems negative except for those mentioned above or indicated below: System Symptom Presence Constitutional Weight Loss Weight gain Eyes History of glaucoma ENT/Mouth Mouth sores/Dry mouth Cardiovascular Chest pain Leg swelling Respiratory Wheezing SOB GI Nausea/vomiting Constipation Abdominal pain Skin/Breast Breast masses Rash/ulcer Musculoskeletal Muscle weakness Trouble Walking Neurological Dizziness/falling Numbness Psychiatric Depression Anxiety Endocrine Abnormal thirst Menopause: Y/N / age? yes / 46 Hot flashes yes Hematologic Frequent bruising History of blood transfusions no Blood clots (DVT / PE) no Prior problems w/ anesthesia no Last Pap smear: 2021, normal Outside medical records reviewed: I reviewed scanned records from Dr. Stafford. Data reviewed (images/urodynamic studies): To further delineate patient's urinary symptoms, a urinedip test and postvoid residual via bladder scanner were obtained. The [employer] Bladder Scanner was used to obtain a postvoid residual to further delineate urinary symptoms. After the patient voided, 0 mL was measured as a postvoid residual. This is within normal limits for patient's history and age. Results for orders placed or performed in visit on 04/14/23 POCT urine dipstick Result Value Ref Range POC Sp [place] 1.020 1.002 - 1.030 POC pH, UA 6 5.0 - 8.5 POC Leuk, UA 75 Negative - Negative POC Nitrite, UA neg Negative - Negative POC Protein, UA neg Negative - Negative mg/dL POC Glucose, UA 100 Normal - Normal mg/dL POC Ketone, UA neg Negative - Negative POC Urobil, UA norm 0.2 - 1.0 mg/dL POC Bili, UA neg Negative - Negative POC Blood, UA 250 Negative - Negative prashanth/uL OBJECTIVE: BP 132/84 Ht 160 cm (5' 3) Wt 68.7 kg (151 lb 8 oz) BMI 26.84 kg/m?? General: normal appearing female, pleasant mood, normal speech Skin: skin of abdomen/pelvis normal Neuro: no paraspinous tenderness; saddle sensory function (S2-4) intact in the pelvic area to touch Gastrointestinal: no palpable masses/organomegaly, soft/nontender, no appreciable hernia Musculoskeletal: levator ani tone (0-5): 1, levator ani contraction (0-5): 2-3, no levator tenderness Pelvic: Cough stress test (empty supine): negative External Genitalia: Vulva, [place]'s and Bartholin glands normal, urethra without tenderness or mass Vagina: With Valsalva, the anterior vaginal wall comes 1 cm beyond the hymen, the posterior vagina wall comes 2 cm beyond the hymen, and the cervix/apex comes 3 cm above the hymen Atrophic epithelium (yes/no)?: yes Discharge?: no Cervix: Normal other than prolapse Bimanual (uterus/adnexa): Mobile anteflexed uterus, non-tender, no masses; no adnexal masses or tenderness. Rectovaginal: Enterocele: small Rectocele: yes Anal sphincter: Resting tone: 5/5 Anal wink: normal External anal sphincter: intact POP Q Measurements: Aa 0 Ba +1 C -3 GH 3.5, 4.5 PB 3,3 TVL 8 Ap +2 Bp +2 D -4 Impression: Ms. Borrero is a .57 y.o. woman with: ?? Uterovaginal prolapse, stage 3, with posterior compartment leading edge. ?? Urine with leuk, blood. Recommendations: I reviewed the anatomy and physiology of pelvic support. We discussed options for management including: Continued observation, pelvic floor exercises (supervised or unsupervised), pessary and/or surgery. Based on the patients expressed goals for management I have recommended the following: After reviewing options of vaginal hysterectomy with cloverdale (uterosacral) ligament repair versus vaginal hysterectomy with laparoscopic mesh sacral colpopexy, she prefers the former approach. We reviewed the pros / cons of each approach, including less durability with cloverdale ligament repair but added risks of bowel injury/ obstruction or mesh erosion with mesh repair. She wants to proceed with vaginal hysterectomy with bilateral salpingectomy; bilateral uterosacral ligament suspension, anterior / posterior colporrhaphy. We will plan a full bladder cough stress test with support of her prolapse at her preop visit to assess risks for occult stress urinary incontinence. We will send today's clean catch urine for microscopic urinalysis with reflex culture. CONSENT: I discussed the planned procedure with the patient, including risks and benefits. We reviewed the consent form, which the patient has signed. As part of our discussion, we reviewed risks including but not limited to infection, bleeding, injury to bladder, urethra, ureters, bowel, possible fistula formation. We discussed that we perform cystoscopy to assure no urinary tract injury prior to ending the procedure. We discussed rare risks of nerve injury due to positioning, retraction, or sutures. We also reviewed potential changes in bladder, bowel and sexual function after prolapse and anti-incontinence operations. We reviewed risks of mesh exposure that can occur even many years out from surgery and risks of persistent pain. We discussed the August 2008 and May 2011 FDA warning regarding mesh placed transvaginally for prolapse repairs and the different applications for mesh in the pelvic area carry different risks. We reviewed risks of mesh exposure if a sling is place is about 3%. As part of the consent for surgery, we reviewed that there are health care personnel who are trainees at [facility], which includes medical students, resident physicians, and fellows. As a part of the start of any surgery, a pelvic exam is usually performed by the attending physician, which then may be repeated by the trainee with supervision. The patient does give her permission for a trainee to perform an exam under anesthesia. (x) ACOG or other informational pamphlets given to patient JOHN ARGUELLO MD Division of Female Pelvic Medicine/Reconstructive Surgery CC: MD Martina Blackwell DO documented in this encounter Plan of Treatment Not on file documented as of this encounter Procedures Procedure Name Priority Date/Time Associated Diagnosis Comments URINALYSIS MICROSCOPIC EXAM Routine 04/14/2023 3:45 PM EDT URINALYSIS WITH REFLEX CULTURE Routine 04/14/2023 3:45 PM EDT Urinary frequency Nocturia Leukocytes in urine POCT URINE DIPSTICK Routine 04/14/2023 Urinary frequency documented in this encounter Results * (ABNORMAL) Urinalysis Microscopic Exam (04/14/2023 3:45 PM EDT) RBC, Urine 5(H) 0 - 4 /HPF [facility] WBC, Urine 1 0 - 5 /HPF [facility] Squamous Epithelial Cells Raw Data, Urine 2 <=4 /HPF [facility] Hyaline Casts, Urine 1 0 - 2 /LPF [facility] Clean Catch Urine 04/14/2023 3:45 PM EDT 04/14/2023 8:11 PM EDT Narrative Resulting Agency Comment Spec In Lab John Arguello MD URINE ORDERABLES Performing Organization Address [facility] de Phone Number [facility] [place] [address] * (ABNORMAL) Urinalysis with reflex Culture (04/14/2023 3:45 PM EDT) Glucose, Urine Dipstick 100(A) Negative mg/dL [facility] Protein, Urine Dipstick Negative Negative mg/dL [facility] Bilirubin, Urine Dipstick Negative Negative mg/dL [facility] Comment: Clinical correlation required for positive Urine Bilirubin results as false positive may occur with some drugs and drug related products. If a false positive is suspected a serum total bilirubin should be considered if clinically indicated. Urobilinogen, Urine Dipstick Normal Normal mg/dL [facility] pH, Urn (dipstick) 6.5 5.0 - 8.0 [facility] Blood, Urine Dipstick Small(A) Negative mg/dL [facility] Ketone, Urine Dipstick Negative Negative mg/dL [facility] Nitrite, Urine Dipstick Negative Negative [facility] Leukocytes, Urine Dipstick Small(A) Negative mcL [facility] Appearance, Urine Dipstick Clear Clear [facility] Specific [place] Urine Automated 1.018 1.005 - 1.030 [facility] Color, Urine Dipstick Yellow Yellow [facility] Reflex to Culture No [facility] Clean Catch Urine 04/14/2023 3:45 PM EDT 04/14/2023 8:11 PM EDT Narrative Resulting Agency Comment Spec In Lab John Arguello MD URINE ORDERABLES Performing Organization Address [facility] Co de Phone Number [facility] [place] [address] * POCT urine dipstick (04/14/2023) POC Sp [place] 1.020 1.002 - 1.030 POC pH, UA 6 5.0 - 8.5 POC Leuk, UA 75 Negative - Negative POC Nitrite, UA neg Negative - Negative POC Protein, UA neg Negative - Negative mg/dL POC Glucose, UA 100 Normal - Normal mg/dL POC Ketone, UA neg Negative - Negative POC Urobil, UA norm 0.2 - 1.0 mg/dL POC Bili, UA neg Negative - Negative POC Blood, UA 250 Negative - Negative prashanth/uL 04/14/2023 John Arguello MD POINT OF CARE TEST O RDERABLES documented in this encounter Visit Diagnoses Diagnosis Uterovaginal prolapse, incomplete- Primary Urinary frequency Nocturia Leukocytes in urine Other nonspecific finding on examination of urine Arthritis Arthropathy, unspecified, site unspecified documented in this encounter Care Teams Gang Vibrator Operator Relationship Specialty Start Date End Date Maria Luisa Valerio MD [address] [place] [address] PCP - General Family Medicine 03/24/23 documented as of this encounter
--- OUTSIDE RECORDS SUMMARY | 2024-11-17 12:50 | XMS_ITS | Clinical Summary ---
Author Organization [facility] Address [address] [place] [address] Care Team Providers Care Potato Peeling Machine Operator Name Role Phone Maria Luisa Valerio MD Primary Care Provider [phone] Allergies Active Allergy Reactions Criticality Noted Date [...] 13:23 EST Sexual Orientation Not on file Obstetrics History Last Filed Vital Signs Vital Sign Reading [...] 27.54 03/04/2024 0908 EDT Plan of Treatment Health Maintenance Due Date Last Done Comments Hepatitis C Screen 1965 COVID-19 Vaccine (2023-25 season) 2024 RSV Immunization ( o r 60+ Years) (1 - 1-dose 75+ series) 2038 Insurance [facility] Address[address] [place] [address] Care Teams Potato Peeling Machine Operator Relationship Specialty Start Date End Date Maria Luisa Valerio MD [address] [place] [id number] PCP - General 12/31/23
--- OUTSIDE RECORDS SUMMARY | 2024-11-17 12:50 | XMS_ITS | Encounter Summary ---
[facility] Organization [facility] [place] [address] Care Team Providers Care Correspondence Dictator Name Role Phone Maria Luisa Valerio MD Primary Care Provider [phone] Reason for Visit * Auth/Cert (Routine) Specialty [...] SUSPENSION, SLING\FASCIA OR SYNTHETIC (WRVU 12.13) Maciej Archbiald MD [facility] OBSTETRICS [place] [address] [facility] Referral ID Status Reason Start Date Expiration Date Visits Re quested Visits Authorized [id number] 1 1 Encounter Details Date Type Department Care Team (Late st Contact Info) Description 07/09/2023 2:50 PM EDT Anesthesia Event [place] [phone] Abbey Mora MD [facility] ANESTHESIOLOGY DEPT [place], [place] [id number] Nathan Pollock MD [facility] [place] [address] Anesthesia Record Procedure Summary Procedure Name Responsible Anesthesiologist Anesthesia Start Time Anesthesia Stop Time HYSTERECTOMY, VAGINAL, REMOVAL TUBE(S) & OR OVARY(S) (WRVU 15.94) (Uterus) Abbey Mora MD 07/09/23 1450 07/09/23 1914 Events Date Time Event Comment 07/09/2023 1450 AN Verify 1450 Start 1450 An Start Data 1456 An Induction 1509 An Intubation 1510 Anesthesia Ready 1524 Handoff Intra-procedure anesthesia care was transferred after review of the patient's history, current anesthetic/surgical status and procedural plan, anticipated issues and expected post-operative course (including disposition.) Zeke August CRNA 1610 Handoff Intra-procedure anesthesia care was transferred after review of the patient's history, current anesthetic/surgical status and procedural plan, anticipated issues and expected post-operative course (including disposition.) Abbey Mora MD 1624 1654 Quick Note Local injected by surgeon 1740 Handoff Intra-procedure anesthesia care was transferred after review of the patient's history, current anesthetic/surgical status and procedural plan, anticipated issues and expected post-operative course (including disposition.) Zeke August CRNA 191 Extubation/LMA Out 1913 an stop data 1914 Recovery or ICU Handoff Yari ent care was transferred to the destination unit staff after review of the patient's medical history, current anesthetic/surgical status and plan, according to the Provider Handoff Checklist. 1913 Stop Meds Name Total fentaNYL 100 mcg IV Lidocaine 100 mg Propofol 280 mg Rocuronium 40 mg PHENYLephrine 160 mcg ePHEDrine 5 mg Ondansetron 8 mg Dexamethasone 8 mg Neostigmine 3 mg Propofol INF 1,362.84 mg ceFAZolin (Ancef) 2 g vial a ttach to sodium chloride 0.9% 100 mL Mini-Bag Plus 2 g metroNIDAZOLE (Flagyl) 500 mg in sodium chloride 0.9% 100 mL infusion 500 mg Midazolam 2 mg Ketamine 10 mg/mL 50 mg Glycopyrrolate 0.5 mg PHENYLephrine INF 3,780 mcg ketorolac (Toradol) (30 mg/mL) injection 30 mg lactated ringers infusion 1,400 mL * Agents Name O2 * Blood No blood administrations on file. Lines, Drains, and Airways Type Details Placement Removal Incision 07/09/23; 1524; othe r (see comments); vagina 07/09/23 1524 by Ginger Dwyer RN (RETIRED) Peripheral IV Line - Single Lumen 07/09/23; 1336; basilic vein (medial side of arm), right; [id number] catheter system; 20 gauge, 1 in length; Lu Sierra RN; distraction, intradermal injection; 07/10/23; 92607/09/23 1336 by Lu Peña RN 07/10/23926 by Nasra Grant RN ETT Mask Ventilation: Robert izquierdo (1); ETT Type: Cuffed; ETT Size: 7.5 mm; Mac Blade: 4; Notes: Asleep, Pre-O2, Cricoid Pressure, Stylette; Attempts: 1; Laryngoscopy Grade: 2; ETT Placement Verified By: Capnometry, Visual; Secured at Teeth: 21 cm; Inserted by: mg; Removal Date: 07/09/23; Removal Time: 191307/09/23 1509 by Nathan Pollock MD 07/09/23 191 by Kia Phillips CRNA Urethral Catheter 07/09/23; 1528; Phys ician order, Need for intraoperative urine output monitoring, Genitourinary surgery; Immobility without alternative; indwelling double lumen catheter; 100% silicone; 14; inserted at this facility; 1 (Inserted by Heide Archibald MD); 5; 10; none; drainage bag; 07/10/23; 0515 07/09/23 1528 by Ginger Dwyer RN 07/10/23 0515 by Percy Bond RN documented in this encounter Social History Tobacco Use Types Packs/Day Years [...] no 07/09/2023 Feels Threatened by Someone no 080 08/2023 Feels Unsafe at Home or Work/School no 07/09/2023 Physical Signs of Abuse Present no 07/09/2023 Sex and Gender Information Value Date Recorded Sex Assigned at Not on file Gender Identity Not on file Sexual Orientation Not on file documented as of this encounter OR Notes * Anesthesia Postprocedure Evaluation - Abbey Mora MD - 07/11/2023 2:10 PM EDT Department of Anesthesiology Post-procedure Note Patient: Jenn Borrero Procedure Summary Date: 07/09/23 Room / Location: [facility] OR [facility] MAIN OR Anesthesia Start: 1449 Anesthesia Stop: 1913 Procedures: HYSTERECTOMY, VAGINAL, REMOVAL TUBE(S) & OR OVARY(S) (WRVU 15.94) (Uterus) COLPOPEXY, VAGINAL, INTRAPERITONEAL APPROACH (WRVU 11.66) COLPORRHAPHY ANTERIOR-POSTERIOR; INC CYSTOURETHROSCOPY (WRVU 13.25) Diagnosis: Uterovaginal prolapse, incomplete (Uterovaginal prolapse, stage 3.) Surgeons: Maciej Archibald MD Responsible Provider: Abbey Mora MD Anesthesia Type: general ASA Status: 2 All Anesthesia Providers: Anesthesiologist: Sharmin Colbert MD; Abbey Mora MD VARIETY LATHE OPERATOR: Zeke August CRNA; Kia Phillips CRNA Delivery And Installation Subcontractor: Nathan Pollock MD Vitals Value Taken Time BP 102/62 07/09/232045 Temp 36.6 ??C (97.9 ??F) 07/09/232045 Pulse 49 07/09/232020 Resp 14 07/09/232045 SpO2 100 % 07/09/232045 Pain Level 0 07/09/231952 Vitals shown include unvalidated device data. Patient Location: PACU/[facility] Level of Consciousness: Awake and Alert Pain Management: Satisfactory Analgesia PONV: None Cardiovascular Status: At Baseline and Hemodynamically Stable Respiratory Status: At Baseline and Room Air Postoperative Fluid Status: Intravascular EUvolemia Possible Anesthetic Complications: NONE apparent at time of evaluation Final Primary Anesthesia Type: General (The anesthetic type performed was the same as planned.) Comments: Abbey Mora MD * Anesthesia Preprocedure Evaluation - Sharmin Colbert MD - 07/08/2023 2:51 PM EDT Pre-Anesthesia Evaluation for: Jenn Borrero a 57 y.o. female. Procedure(s): HYSTERECTOMY, VAGINAL, REMOVAL TUBE(S) & OR OVARY(S) (WRVU 15.94) COLPOPEXY, VAGINAL, INTRAPERITONEAL APPROACH (WRVU 11.66) COLPORRHAPHY ANTERIOR-POSTERIOR; INC CYSTOURETHROSCOPY (WRVU 13.25) URETHRAL SUSPENSION, SLING\FASCIA OR SYNTHETIC (WRVU 12.13) Patient Active Problem List Diagnosis Date Noted ??? Uterovaginal prolapse, incomplete 04/14/2023 ??? Bipolar disorder 04/14/2023 ??? Arthritis 04/14/2023 Past Medical History: Diagnosis Date ??? Arthritis Back, neck, fingers ??? Bipolar disorder ??? Cystocele with rectocele Past Surgical History: Procedure Laterality Date ??? FINGER SURGERY 1987 ??? KNEE ARTHROSCOPY Left 2001 Social History Tobacco Use ??? Smoking status: Never ??? Smokeless tobacco: Never ??? Tobacco comments: Smokes marijuana as sleep aid Substance Use Topics ??? Alcohol use: Not on file Social History Substance and Sexual Activity Drug Use Not on file Allergies Allergen Reactions ??? Latex, Natural Rubber Medications: MAR and/or home medications have been reviewed. Physical Exam: Preprocedure Vitals Current as of 07/08/23 1451 No BP, pulse, respiration, SpO2, or temperature recorded. Height: 160 cm (5' 3) (04/14/23) Weight: 68.7 kg (151 lb 8 oz) (04/14/23) BMI: 26.83 IBW: 52.4 kg (115 lb 7.7 oz) Airway Assessment: Mallampati: II TM distance: >3 FB Neck ROM: full Cardiovascular Assessment: Rhythm: regular Rate: normal Pulmonary Assessment: unlabored breathing Dental Assessment: - normal exam Misc Assessment: Last Filed Perioperative Cognitive Screening None Anesthesia Plan: ASA 2 general, with a(n) intravenous induction 57 y.o. female (IBW 55 kg TBW 67 kg BMI 26) with history of vaginal prolapse scheduled for vaginal hysterectomy. Medical history: unremarkable Anesthetic History: none on file Exercise tolerance: NPO Status: adequate Plan: GA w/ EGD Standard ASA monitors Adequate IV access Nathan Pollock MD 07/08/2023 Attending Assessment: Patient personally seen and examined. 57yo F 69kg BMI 27 with prolapse presenting for vaginal hysterectomy and associated procedures. No cardiac or pulmonary problems. No recent URI. No GERD (asymptomatic in preop). No problems with anesthesia in the past. Meds: reviewed NPO status adequate Last value Range last 24 hrs Heart Rate Heart Rate: 77 Heart Rate: [77] Blood Pressure BP: (!) 141/91 BP: (141)/(91) Respiratory Rate Resp: 16 Resp: [16] SpO2 SpO2: 99 % SpO2: [99 %] Plan: - preop Tylenol - standard ASA monitors, PIV - GA The patient was informed of the risks, benefits and alternatives of anesthesia. These risks included, but were not limited to, post-operative nausea and/or vomiting, pain, sore throat, dental/lip injury, and other rare but serious complications such as cardiac instability/arrest, neurologic event, awareness, severe allergic reactions, position-related nerve injuries, and need blood transfusions. All questions sought and answered. Consent was signed and placed in chart. Sharmin Colbert MD 07/09/2023 Region - Other Informed Consent: Anesthetic plan and risks discussed with patient. Plan discussed with resident and attending. Anesthesia Screening documented in this encounter Plan of Treatment Not on file documented as of this encounter Visit Diagnoses Not on filedocumented in this encounter Administered Medications Inactive Administered Medications - up to 3 most recent administrations Medication Order MAR Action Action Date Dose Rate Site ceFAZolin (Ancef) 2 g vial attach to sodium chloride 0.9% 100 mL Mini-Bag Plus 2 g, Intravenous, ONCE, 1 dose, On Fri07/09/23 at 1330, Administer over 30 Minutes, Produce Runner to OR Infuse over 30 minutes., Day of Surgery (Day of Procedure), Indication for (Active or Suspected): Prophylaxis New Bag 07/09/2023 3:16 PM EDT 2 g dexAMETHasone (Decadron) injection Intravenous, PRN, Starting on Fri07/09/23 at 1459, Until Fri07/09/23 at 191, Anesthesia Intra-op, Routine Given 07/09/2023 2:59 PM EDT 8 mg ePHEDrine sulfate (5 mg/mL) multi-dose injection Intravenous, PRN, Starting on Fri07/09/23 at 1524, Until Fri07/09/23 at 191, Anesthesia Intra-op, Routine Given 07/09/2023 3:24 PM EDT 5 mg fentaNYL (pf) (50 mcg/mL) multi-dose injection Intravenous, PRN, Starting on Fri07/09/23 at 1506, Until Fri07/09/23 at 191, Anesthesia Intra-op, Routine Given 07/09/2023 3:20 PM EDT 50 mcg Given 07/09/2023 3:06 PM EDT 50 mcg glycopyrrolate (Robinul) (0.2 mg/mL) multi-dose injection Intravenous, PRN, Starting on Fri07/09/23 at 1525, Until Fri07/09/23 at 1914, Anesthesia Intra-op, Routine Given 07/09/2023 6:41 PM EDT 0.4 mg Given 07/09/2023 3:25 PM EDT 0.1 mg ketamine (Ketalar) (10 mg/mL) IV bolus injection (Anesthesia) Intravenous, PRN, Starting on Fri07/09/23 at 1525, Until Fri07/09/23 at 1914, Anesthesia Intra-op Given 07/09/2023 3:25 PM EDT 50 mg ketorolac (Toradol) (30 mg/mL) injection Intravenous, PRN, Starting on Fri07/09/23 at 1841, Until Fri07/09/23 at 1914, Anesthesia Intra-op, Routine Given 07/09/2023 6:41 PM EDT 30 mg lactated ringers infusion 1,000 mL, at 100 mL/hr, Intravenous, CONTINUOUS, Starting on Fri07/09/23 at 1330, Until Fri07/09/23 at 2100, Day of Surgery (Day of Procedure) New Bag 07/09/2023 4:32 PM EDT New Bag 07/09/2023 3:00 PM EDT lidocaine (pf) (Xylocaine) (20 mg/mL) 2% injection syringe Intravenous, PRN, Starting on Fri07/09/23 at 1457, Until Fri07/09/23 at 191, Anesthesia Intra-op, Routine Given 07/09/2023 2:57 PM EDT 100 mg metroNIDAZOLE (Flagyl) 500 mg in sodium chloride 0.9% 100 mL infusion 500 mg, Intravenous, ONCE, 1 dose, On Fri07/09/23 at 1330, Administer over 30 Minutes, Produce Runner to OR Infuse over 30 minutes., Day of Surgery (Day of Procedure), Indication for (Active or Suspected): Prophylaxis Given 07/09/2023 3:16 PM EDT 500 mg midazolam (pf) (Versed) (1 mg/mL) multi-dose injection Intravenous, PRN, Starting on Fri07/09/23 at 1525, Until Fri07/09/23 at 191, Anesthesia Intra-op, Routine Given 07/09/2023 3:25 PM EDT 2 mg neostigmine (Bloxiver) (1 mg/mL) injection Intravenous, PRN, Starting on Fri07/09/23 at 1841, Until Fri07/09/23 at 191, Anesthesia Intra-op, Routine Given 07/09/2023 6:41 PM EDT 3 mg ondansetron (pf) (Zofran) (2 mg/mL) injection Intravenous, PRN, Starting on Fri07/09/23 at 1524, Until Fri07/09/23 at 1914, Anesthesia Intra-op, Routine Given 07/09/2023 6:16 PM EDT 4 mg Given 07/09/2023 3:24 PM EDT 4 mg PHENYLephrine (Jaya-Synephrine) (80 mcg/mL) in sodium chloride 0.9% 250 mL infusion Intravenous, CONTINUOUS PRN, Starting on Fri07/09/23 at 1551, Until Fri07/09/23 at 191, Anesthesia Intra-op, Routine Rate/Dose Change 07/09/2023 5:20 PM EDT 20 mcg/min 15 mL/hr Rate/Dose Change 07/09/2023 4:52 PM EDT 10 mcg/min 7.5 mL/ hr New Bag 07/09/2023 3:51 PM EDT 20 mcg/min 15 mL/hr PHENYLephrine in NS (PF) (JAYA-SYNEPHRINE) 0.8 mg/10 mL (80 mcg/mL) multi-dose injection Syringe Intravenous, PRN, Starting on Fri07/09/23 at 1536, Until Fri07/09/23 at 191, Anesthesia Intra-op, Routine Given 07/09/2023 3:49 PM EDT 80 mcg Given 07/09/2023 3:36 PM EDT 80 mcg propofoL (Diprivan) (10 mg/mL) infusion Intravenous, CONTINUOUS PRN, Starting on Fri07/09/23 at 1501, Until Fri07/09/23 at 191, Anesthesia Intra-op, Routine Rate/Dose Change 07/09/2023 6:32 PM EDT 60 mcg/kg/min 24.804 mL/hr Rate/Dose Change 07/09/2023 6:24 PM EDT 80 mcg/kg/min 33.0 72 mL/hr Rate/Dose Change 07/09/2023 3:45 PM EDT 100 mcg/kg/min 41. 34 mL/hr propofoL (Diprivan) 10 mg/mL bolus injection (Anesthesia) Intravenous, PRN, Starting on Fri07/09/23 at 1458, Until Fri07/09/23 at 191, Anesthesia Intra-op Given 07/09/2023 5:23 PM EDT 40 mg Given 07/09/2023 3:05 PM EDT 40 mg Given 07/09/2023 3:01 PM EDT 20 mg rocuronium (Zemuron) (10 mg/mL) multi-dose injection Intravenous, PRN, Starting on Fri07/09/23 at 1504, Until Fri07/09/23 at 191, Anesthesia Intra-op, Routine Given 07/09/2023 3:04 PM EDT 40 mg documented in this encounter Care Teams Correspondence Dictator Relationship Specialty Start Date End Date Maria Luisa Valerio MD [address] [place] [address] PCP - General Family Medicine 03/24/23 documented as of this encounter
--- OUTSIDE RECORDS SUMMARY | 2024-11-17 12:50 | XMS_ITS | Encounter Summary ---
[facility] [place] [address] Care Team Providers Care Ultrasound Specialist Name Role Phone Maria Luisa Valerio MD Primary Care Provider [phone] Encounter Details Date Type Department Care Team (Latest Contact Info) Description 06/06/2023 Travel Social History Tobacco Use Types Packs/Day Years Used Date Smoking Tobacco: Never Assessed Sex and Gender Information Value Date Recorded Sex Assigned at Not on file Gender Identity Not on file Sexual Orientation Not on file documented as of this encounter Plan of Treatment Not on file documented as of this encounter Visit Diagnoses Not on filedocumented in this encounter Care Teams Ultrasound Specialist Relationship Specialty Start Date End Date Maria Luisa Valerio MD [address] [place] [id number] PCP - General Family Medicine 03/24/23 documented as of this encounter
--- OUTSIDE RECORDS SUMMARY | 2024-11-17 12:50 | XMS_ITS | Encounter Summary ---
Author Organization [facility] Address [address] [place] [address] Care Team Providers Care Reinforcing Metal Worker Name Role Phone Maria Luisa Valerio MD Primary Care Provider [phone] Encounter Details Date Type Department Care Team (Latest Contact Info) Description 02/17/2024 Travel Social History Tobacco Use Types Packs/Day [...] on filedocumented in this encounter Care Teams Reinforcing Metal Worker Relationship Specialty Start Date End Date Maria Luisa Valerio MD [address] [place], [place] [id number] PCP - General 12/31/23 documented as of this encounter
--- OUTSIDE RECORDS SUMMARY | 2024-11-17 12:50 | XMS_ITS | Encounter Summary ---
Author Organization [facility] Address [address] [place] [address] Care Team Providers Care Environmental Protection Officer Name Role Phone Bucky Boone MD Primary Care Provider [phone] Reason for Referral * Radiology Services (Routine/Next Available) - Authorized Specialty Diagnoses / Procedures Referred By Contac t Referred To Contact Radiology Diagnoses Right hip pain Lumbar radiculopathy Procedures MR LUMBAR SPINE WO CONTRAST Paulina Powell MD Phone: tel: fax: [facility] [place]erral ID Status Reason Start Date Expiration Date V isits Requested Visits Authorized [id number] Authorized 11/26/2023 01/24/2024 1 1 Reason for Visit * Radiology Services (Routine/Next Available) - Authorized Specialty Diagnoses / Procedures Referred By Contac t Referred To Contact Radiology Diagnoses Right hip pain Lumbar radiculopathy Procedures MR LUMBAR SPINE WO CONTRAST Paulina Powell MD Phone: tel: fax: [facility] [place]erral ID Status Reason Start Date Expiration Date V isits Requested Visits Authorized [id number] Authorized 11/26/2023 01/24/2024 1 1 Encounter Details Date Type Department Care Team (Latest Contact Info) Description 12/08/2023 6:08 EST - 12/08/2023 23:59 EST Hospital Encounter [facility] MRI [address], [place] [address] Right hip pain; Lumbar radiculopathy Discharge Disposition: Home or Self Care Social [...] Procedure Name Priority Date/Time Associated Diagnosis Comments MR LUMBAR SPINE WO CONTRAST Routine 12/08/2023 6:56 EST Right hip pain Lumbar radiculopathy documented in this encounter Results * MR LUMBAR SPINE WO CONTRAST (12/08/2023 [...] acute bone findings. 6. ??Please see detailed [id number] findings above. [id number] Narrative 12/08/2023 10:39 EST MR LUMBAR SPINE [...] acute bone findings. 6. Please see detailed [id number] findings above. [id number] Paulina Powell MD IMG MRI ORDERABLES Joy l Result documented in this encounter Visit Diagnoses Diagnosis Right hip pain Pain in joint, pelvic region and thigh Lumbar radiculopathy Thoracic or lumbosacral neuritis or radiculitis, unspecified documented in this encounter Care Teams Environmental Protection Officer Relationship Specialty Start Date End Date Bucky Boone MD [address] [place] [address] PCP - General 10/05/15 12/30/23 documented as of this encounter
--- OUTSIDE RECORDS SUMMARY | 2024-11-17 12:50 | XMS_ITS | Encounter Summary ---
Author Organization [facility] [place] [address] Care Team Providers Care Employee Health Rn Name Role Phone Maria Luisa Valerio MD Primary Care Provider [phone] Reason for Visit * Auth/Cert (Routine) Specialty [...] OR SYNTHETIC (WRVU 12.13) Maciej Arguello MD [facility] OBSTETRICS [place] [address] RUST Referral ID Status Reason Start Date Expiration Date Visits Re quested Visits Authorized [id number] 1 1 Encounter Details Date Type Department Care Team (Late st Contact Info) Description 07/09/2023 2:09 PM EDT - 07/09/2023 6:54 PM EDT Surgery [place] [address] Maciej Arguello MD [facility] OBSTETRICS [place] [address] HYSTERECTOMY, VAGINAL, REMOVAL TUBE(S) & OR OVARY(S) ([facility] 18.98) Social History Tobacco Use Types Packs/Day Years [...] Sign Reading Time Taken Comments Blood Pressure 141/91 07/09/2023 1:14 PM EDT Pulse 77 07/09/2023 1:14 PM EDT Temperature 36 ??C (96.8 ??F) 07/09/2023 1:14 PM EDT Respiratory Rate 16 07/09/2023 1:14 PM EDT Oxygen Saturation 99% 07/09/2023 1:14 PM EDT Inhaled Oxygen Concentration - - Weight 68.9 kg (151 lb 14.4 oz) 07/09/2023 1:14 PM EDT Height 160 cm (5' 2.99) 07/09/2023 1:14 PM EDT Body Mass Index 27 07/09/2023 1:14 PM EDT documented in this encounter Discharge Summaries * Mirna Herr MD - 07/10/2023 6:30 AM EDT Discharge Summary Patient Name: Jenn Borrero Patient Age: 57 y.o. Language: Haitian Race: White Ethnicity: Not nor Admit date: 07/09/2023 Discharge date and time: 07/10/23 Attending Physician: Maciej Arguello MD Discharge Physician: Maciej Arguello MD Follow-up Recommendations for Providers: Future Appointments Date Time Provider Department Center 08/21/2023 11:00 AM NurseJuan II, RN [facility] OB [address]L [facility] 08/21/2023 11:20 AM Maya Lux APRN [facility] [address] Inpatient Provider Contact Information: Please call our office at [phone] with any problems or concerns. Discharge Diagnoses [...] at Discharge: Patient Instructions PATIENT DISCHARGE INSTRUCTIONS [facility] DIRECTOR OF ENTERPRISE ARCHITECTURE Department: Follow Up Appointment: Please call the above number to schedule a follow up appointment in clinic if you do not already have one scheduled when you leave the hospital. Future Appointments Date Time Provider Department Center 08/21/2023 11:00 AM NurseJuan II, RN [facility] 08/21/2023 11:20 AM Maya Lux APRN [facility] Call your doctor if you [...] NurseJuan II, RN Obstetrics and Gynecology at [facility] Arrive at: Patient Financial Services Manager Area [phone] 08/21/2023 11:20 AM Maya Lux APRN Obstetrics and Gynecology at [facility] Arrive at: Patient Financial Services Manager Area 5L [phone] Future Orders Complete By Expires Discontinue IV or Saline Lock [VNU352 Custom] As directed Process Instructions: Scheduling Instructions: Comments: IV or saline lock when patient discharged. Questions: Discharge References/Attachments None Provider Contact Information: Maria Luisa Valerio MD [phone] documented in this encounter Discharge Instructions * Patient Instructions* Ken Mcmullen MD - 07/10/2023 5:57 AM EDT PATIENT DISCHARGE INSTRUCTIONS [facility] DIRECTOR OF ENTERPRISE ARCHITECTURE Department: Follow Up Appointment: Please call the above number to schedule a follow up appointment in clinic if you do not already have one scheduled when you leave the hospital. Future Appointments Date Time Provider Department Center 08/21/2023 11:00 AM Nurse, Juan PAUL RN [facility] 08/21/2023 11:20 AM Maya Lux APRN [facility] Call your doctor if you [...] Grant RN - 07/10/2023 10:15 AM EDT [facility] Short Stay Unit Discharge Note All relevant [...] UOP, lincoln out after adequate backfill trial It Operations Analyst: s/p surgery for stage 3 POP, follow [...] Out: 3300 [Urine:3300] UOP last recorded at [id number]/hr Body mass index is 27 kg/m??. Gen: [...] this morning as she is tolerating PO. It Operations Analyst: S/p above procedures for pelvic organ prolapse. [...] AM EDT Patient arrived to unit from [facility]. Lincoln in place and draining adequately. Pain [...] Operative Note Patient Name: Jenn Borrero : [id number] MR#: [id number] Case Date: 07/09/2023 Surgeon: Surgeon(s) and Role: [...] and bilateral fallopian tubes OR 4 Ext [id number] Uterovaginal prolapse, stage 3. Uterus, cervix, and [...] Negron MD - 07/09/2023 3:24 PM EDT [facility] Operative Note Patient Name: Jenn Borrero : [id number] MR#: [id number] Case Date: 07/09/2023 Surgeon: Surgeon(s) and Role: [...] and bilateral fallopian tubes OR 4 Ext [id number] Uterovaginal prolapse, stage 3. Uterus, cervix, and [...] colpotomy was performed with sharp dissection. A Andrzej retractor was used to displace the bladder [...] sutures was facilitated by placing a large Java retractor and holding the packing in the [...] used to reapproximate the full-thickness vaginal wall [id number]. Thiswas continued out to the perineal body. [...] PM EDT Combined Ant/Post Colporrhaphy W Cysto (39697) 07/09/2023 2:49 PM EDT Uterovaginal prolapse, incomplete Revaginal Prolapse, Uterosacral (55474) 07/09/2023 2:49 PM EDT Uterovaginal prolapse, incomplete Vag Hyst, 250 Gm Or Less, W Removal Of Tube &/Or Ovary (17892) 07/09/2023 2:49 PM EDT Uterovaginal prolapse, incomplete [...] PM EDT 07/09/2023 4:53 PM EDT Narrative [facility] - 07/09/2023 4:53 PM EDT Specimen requisition ordered. ??Separate Pathology report to follow Maciej Arguello MD PATHOLOGY/CYTOLOGY O RDERABLES [facility] [place] [address] * Surgical Pathology Report (07/09/2023 4:32 PM EDT) Final Diagnosis [id number] ? Location: [facility]; [facility]; The signing pathologist has (i) examined the [...] CR-0 Electronically signed by: ?Paulino ABEL, Daniel Knox Verified: ??07/11/2023 15:10 ??Pathologist Performed at: ??-[facility] Dept. of Pathology, [place] [address] Flagman: Malini Palma MD, FCAP, ??CLIA Certificate: [id number] SPECIMEN(S) SUBMITTED A - Uterus, cervix, and [...] Tube 2: 2.5 x 0.7 cm, fimbriated. Metal Control Worker sections in 9 cassettes as follows: ?A1: Anterior cervix ?A2: Posterior cervix ?A3: Full-thickness anterior endomyometrium ?A4: Full-thickness anterior endomyometrium, to include nodule ?A5: Full-thickness posterior endomyometrium ?A6-A7: Fallopian tube #1 ?A8-A9: Fallopian tube #2 ??BGT 07/11/2023 3:10 PM EDT [facility] Uterine Corpus 07/09/2023 4: 32 PM EDT 07/09/2023 4:32 PM EDT Maciej Arguello MD PATHOLOGY/CYTOLOGY O RDERAYADY Performing Organization Address City/[facility]/ZIP Co de Phone Number [facility] [address] [place] [address] * POCT Glucose (07/09/2023 1:31 PM EDT) Glucose, POC 94 65 - 199 mg/dL [facility] Comment: Supplemental ranges: <140 mg/dL before meals <180 mg/dL all other times of the day Blood 07/09/2023 1:31 PM EDT 07/09/2023 1:31 PM EDT Maciej Arguello MD POINT OF C[place] [address] documented in this encounter Visit Diagnoses Diagnosis Uterovaginal prolapse, incomplete- Primary Uterovaginal prolapse, incomplete documented in this encounter Admitting Diagnoses Diagnosis [...] 9:42 PM EDT 1,000 mLs 100 mL/hr lidocaine-EPINEPHrine (pf) (1% - 1:200,000) injection PRN, Starting on Fri07/09/23 at 1533, Until Fri07/10/23 at 1239, Intra-Operative (Intra-Procedure), Routine Given 07/09/2023 6:16 PM EDT 6 mLs 19- Surgical Site Given 07/09/2023 4:55 PM EDT 3 mLs 19 - Surgical Site Given 07/09/2023 3:33 PM EDT 10 mLs 19 - Surgical Site lithium capsule 300 mg 300 mg, Oral, [...] of Procedure) Given 07/09/2023 1:22 PM EDT 20 0 mg prochlorperazine (Compazine) (5 mg/mL) injection 5 [...] Procedure), Routine 1322 (Given - Provider: Lu Peña RN) ceFAZolin (Ancef) 2 g vial attach to sodium chloride 0.9% 100 mL Mini-Bag Plus (COMPLETED)(Linked Group 1) 2 g, Intravenous, ONCE, 1 dose, On Fri07/09/23 at 1330, Administer over 30 Minutes, Sapphire Stylus Grinder to OR Infuse over 30 minutes., Day [...] Last dose on Fri07/10/23 at 1400, Routine 1914 (Not Given - Provider: Brooklyn Kaur RN [...] Fri07/09/23 at 1330, Administer over 30 Minutes, Sapphire Stylus Grinder to OR Infuse over 30 minutes., Day [...] on Fri07/09/23 at 2200, Until Discontinued, Routine 214 (Given - Provider: Percy Bond RN) 0851 (Given - Provider: Nasra Grant, PAZ) Continuous Medication Order 07/08/2023 07/09/2023 07/10/2023 lactated [...] Fri07/09/23 at 2200, Until Fri07/10/23 at 0626 2142 (New Bag - Provider: [...] PRN, Starting on Fri07/10/23 at 0111, Until Tatyana 07/10/23 at 1239, Muscle spasms, Routine 012 (Given - Provider: Percy Bond RN)0854 (Given - Provider: Nasra Grant, PAZ) lidocaine (Xylocaine) 1% (10 mg/mL) injection 3 [...] PACU Recovery 2004 (Given - Provider: Brooklyn Kaur RN) oxyCODONE (Roxicodone) tablet 5-10 mg 5-10 [...] 2016, Until Fri07/10/23 at 1239, Nausea, Routine 2019 (Given - Provider: Brooklyn Kaur RN) sodium chloride 0.9 % (flush) (BD PosiFlush Normal Saline 0.9) flush 5-20 mL 5-20 mL, Intravenous, EVERY 1 MIN PRN, Starting on Fri07/09/23 at 2100, Until Fri07/10/23 at 1239, flush, Flush pertains to all indwelling lines. Flush per protocol found in the job aid using the link provided on this medication record., Routine Linked Groups Order Group 1: ceFAZolin (Ancef) 2 g vial attach to sodium chloride 0.9% 100 mL Mini-Bag Plus (COMPLETED)Jump to med 2 g, Intravenous, ONCE, 1 dose, On Fri07/09/23 at 1330, Administer over 30 Minutes, Sapphire Stylus Grinder to OR Infuse over 30 minutes., Day of Surgery (Day of Procedure), Indication for (Active or Suspected): Prophylaxis And metroNIDAZOLE (Flagyl) 500 mg in sodium chloride 0.9% 100 mL infusion (COMPLETED)Jump to med 500 mg, Intravenous, ONCE, 1 dose, On Fri07/09/23 at 1330, Administer over 30 Minutes, Sapphire Stylus Grinder to OR Infuse over 30 minutes., Day of Surgery (Day of Procedure), Indication for (Active or Suspected): Prophylaxis documented in this encounter Care Teams Employee Health Rn Relationship Specialty Start Date End Date Maria Luisa Valerio MD [address] [place] [id number] PCP - General Family Medicine 03/24/23 documented as of this encounter
--- OUTSIDE RECORDS SUMMARY | 2024-11-17 12:50 | XMS_ITS | Encounter Summary ---
[place] [address] Care Team Providers Care Rod Finisher Name Role Phone Maria Luisa Valerio MD Primary Care Provider [phone] Reason for Referral * Consultation (Routine) - Closed Specialty Diagnoses / Procedures Referred By Contac t Referred To Contact Obstetrics and Gynecology Diagnoses Female genital prolapse, unspecified type Martina Stafford DO [address] [place] [address] [place] [address] [facility] Gr[employer] Operator [employer] [address] [place] [phone] Referral ID Status Reason Start Date Expiration Date V isits Requested Visits Authorized [id number] Closed Consult, Test & Treat PCP Updated and/or Approved 03/24/2023 03/23/2024 6 6 Encounter Details Date Type Department Care Team (Late st Contact Info) Description 03/24/2023 Transcribe Orders eDH Incoming Referrals [phone] Martina Stafford DO [address] [place] [address] [address] [place] [phone] Female genital prolapse, unspecified type Social History Tobacco Use Types Packs/Day Years Used Date Smoking Tobacco: Never Assessed Sex and Gender Information Value Date Recorded Sex Assigned at Not on file Gender Identity Not on file Sexual Orientation Not on file documented as of this encounter Plan of Treatment Scheduled Referrals Name Type Priority Associated Diagnoses Order Schedule Referral to Urogynecology Outpatient Referral Routine Female genital prolapse, unspecified type Ordered: 03/24/2023 documented as of this encounter Visit Diagnoses Diagnosis Female genital prolapse, unspecified type documented in this encounter Care Teams Rod Finisher Relationship Specialty Start Date End Date Maria Luisa Valerio MD [address] [place] [address] PCP - General Family Medicine 03/24/23 documented as of this encounter
--- OUTSIDE RECORDS SUMMARY | 2024-11-17 12:50 | XMS_ITS | Encounter Summary ---
Author Organization [facility] Address [address] [place] [address] Care Team Providers Care Chief Human Resources Officer Name Role Phone Bucky Boone MD Primary Care Provider [phone] Maria Luisa Valerio MD Primary Care Provider [phone] Encounter Details Date Type Department Care Team (Late st Contact Info) Description 10/09/2021 Lab Requisition [facility] Pathology & Laboratory Medicine - [address] [address] Outr Resulting Lab, Provider Social History Tobacco Use Types Packs/Day Years [...] Procedure Name Priority Date/Time Associated Diagnosis Comments VITAMIN B12 Routine 10/09/2021 8:25 EST documented in this encounter Results * VITAMIN B12 (10/09/2021 8:25 EST) Vitamin B12 309 211 - 911 pg/mL 10/09/2021 22:36 EST [facility] Blood VENOUS BLOOD / Unknown 10/09/2021 8:25 EST 10/09/2021 21:22 EST us Provider Outr Resulting Lab CHEMISTRY & BLOOD GA S ORDERABLES Final Result [facility] [address] [place] [address] documented in this encounter Visit Diagnoses Not on filedocumented in this encounter Care Teams Chief Human Resources Officer Relationship Specialty Start Date End Date Bucky Boone MD [address] [place] [address] PCP - General 10/05/15 12/30/23 Maria Luisa Valerio MD [address] [place], [place] [id number] PCP - General 12/31/23 documented as of this encounter
--- OUTSIDE RECORDS SUMMARY | 2024-11-17 12:50 | XMS_ITS | Encounter Summary ---
Author Organization [facility] Address [address] [place] [address] Care Team Providers Care Factory Clerk Name Role Phone Maria Luisa Valerio MD Primary Care Provider [phone] Encounter Details Date Type Department Care Team (Latest Contact Info) Description 03/04/2024 Travel Social History Tobacco Use Types Packs/Day [...] on filedocumented in this encounter Care Teams Factory Clerk Relationship Specialty Start Date End Date Maria Luisa Valerio MD [address] [place], [place] [id number] PCP - General 12/31/23 documented as of this encounter
--- OUTSIDE RECORDS SUMMARY | 2024-11-17 12:50 | XMS_ITS | Encounter Summary ---
Author Organization [facility] Address [address] [place] [address] Care Team Providers Care Academic Associate Name Role Phone Maria Luisa Valerio MD Primary Care Provider [phone] Reason for Referral * Referral (Routine/Next Available) - Closed Specialty Diagnoses / Procedures [facility]erred To Contact Pain Medicine Diagnoses Lumbar radiculopathy Spondylolisthesis at L4-L5 level Procedures EPIDURAL STEROID INJECTION ON THE SPINE WITH FLUOROSCOPY Shanon Henley PA-C Phone: tel: fax: [facility] [address] [place] [address] Phone: tel: Referral ID Status Reason Start Date Expiration Date Visits Re quested Visits Authorized [id number] Closed 01/13/2024 1 1 Reason for Visit * Reason Comments Pain Pain * Consult (Routine/Next Available) - Closed Specialty Diagnoses / Procedures [facility] Referred To Contact Orthopedic Surgery Diagnoses Right hip pain Lumbar radiculopathy Paulina Powell MD Phone: tel: fax: [facility] [address] [place] [address] Phone: tel: fax: Referral ID Status Reason Start Date Expiration Date V isits Requested Visits Authorized [id number] Closed Specialty Services Required 11/25/2023 1 1 Encounter Details Date Type Department Care Team (Late st Contact Info) Description 01/13/2024 13:45 EST Office Visit [facility] Orthopedics & Spine Medicine [address], [address] [place] [address] Shanon Henley PA-C [address] [facility] [address] [place] [address] Lumbar radiculopathy (Primary Dx); Spondylolisthesis at L4-L5 level; Lumbar pain Social History Tobacco Use Types Packs/Day Years Used Date Smoking Tobacco: Never Assessed Comments Unknown Sex and Gender Information Value Date Recorded Sex Assigned at Female 03/04/2024 9:14 EDT Legal Sex Female 18:21 EST Gender Identity Female 12/31/2023 13:23 EST Sexual Orientation Not on file documented as of this encounter Last Filed Vital Signs Vital Sign Reading Time Taken Comments Blood Pressure 126/84 01/13/2024 1333 EST Pulse 88 01/13/2024 1333 EST Temperature - - Respiratory Rate 18 01/13/2024 1333 EST Oxygen Saturation 100% 01/13/2024 1333 EST Inhaled Oxygen Concentration - - Weight 69.6 kg (153 lb 6.4 oz) 01/13/[address] Height 158.8 cm (5' 2.5) 01/13/2024 1333 EST Body Mass Index 27.61 01/13/2024 1333 EST documented in this encounter Progress Notes * Shanon Henley PA-C - 01/13/2024 1345 EST History of Present Illness: Jenn Borrero is a 58-year-old female with history of bipolar disorder, CKD presenting upon referral from Dr. Ana Laura Powell for evaluation of low back versus hip pain. Patient was last seen by Dr. Powell on 11/25/2023 at which time her pain was noted to be in the anterolateral aspect of the hip present with sitting, driving, and sleeping. Had done some exercises for the pain. After evaluating the patient, Dr. Powell was unclear if the pain was emanating from the hip, sacroiliac joint, or lumbar spine. Ordered her a lumbar MRI, and an intra-articular hip injection. The MRI was completed 12/08/2023, and the injection was done 12/31/2023. Today, Jenn presents complaining of right hip pain that has been going on for several months. Painmostly present with driving and at night. She finds that once she is up and moving this relieves the pain. Pain starts in the region of the hip, somewhat just above the region of the greater trochanter, and radiates down the lateral aspect of the thigh. She also indicates some pain in the region ofthe sacroiliac joint. [place] like she had some relief for a day or 2 from the intra-articular hip injection, and noticed during this pain relief that she was having some more pain towards the low back. When further discussing some low back pain, she noted that she does have some pain that is aggravated with activities such as vacuuming, and standing to do dishes that is relieved with sitting down. Is not reporting any weakness in the legs, change in bowel or bladder function. Conservative Treatment: Meds: Ibuprofen as needed PT: None recently Chiropractics, who prescribed HEP HEP: Continues with some regularity Injection History: Right intra-articular hip injection 12/31/2023 relief for 1 to 2 days Review of Systems: As per HPI. I reviewed medications, allergies, medical, surgical and social history with the patient. Physical Examination: Current pain: 0 out of 10 Pain at worst: 10 out of 10 Well developed, well-nourished 58-year-old female, in no acute distress, appearing fairly comfortable seated HEENT without gross abnormalities Breathing non-labored Skin is warm and dry Patient stands with normal upright posture Palpation reveals some mild tenderness to palpation over the region of L4-5 paraspinals, and over her right sacroiliac joint. No marked tenderness to palpation around the greater trochanter. Ambulates with nonantalgic gait Heel and toe walking without difficulty Range of motion of lumbar spine is reasonable, with some pain aggravation with lumbar extension in her low back. No significant pain in the hip with internal or external rotation of the hip Strength: 5 out of 5 in her knee flexion and extension, ankle dorsiflexion, plantarflexion and EHL.4+ out of 5 bilateral hip flexion Sensation: Intact to light touch bilateral lower extremities DTRs: Bilateral patellar and Achilles DTRs slightly brisk. Bilateral bicep, tricep, and brachioradialis 1-2+ with negative Alice sign Provocative maneuvers: Some pain aggravation with Bartolo sign of the low back. No pain in her hip Image Review: Lumbar spine MRI 12/08/2023 shows evidence of a minimal anterolisthesis of L4 on 5. Degenerative discchanges most advanced at L5-S1, but overall reasonable for patient's age. No evidence of central spine stenosis at the L4-5 facet joints have some arthrosis and bilateral facet effusions. She also has a degree of facet arthropathy at L5-S1. No clear spinal or foraminal stenosis there is some edema of the left sacral nicolas on coronal imaging towards the sacroiliac joint and STIR imaging Imaging read by me Assessment: Low back pain with right lumbar radiculopathy Grade 1 L4-5 spondylolisthesis, dynamic Jenn Borrero is a pleasant 58-year-old female presenting for evaluation of her that seems to affecther low back, and radiates to the lateral thigh not seeming to extend past the knee in the absence of tenderness or provocative maneuvers that are positive for greater trochanteric bursitis. I am suspicious that this is an L5 radiculopathy. There is no evidence of nerve compression in her lumbar spine MRI, though with upright plain films, she is noted to have some worsening of her spondylolisthesis at L4-5, making me suspicious that her L5 radiculopathy could be coming from some lateral recess stenosis. Discussed that it may be diagnostically helpful to consider an L4-5 epidural steroid injection. She is interested in scheduling this. We did also discuss other options including chiropractics, which she states she has already done, as well as physical therapy. She is more interested in moving forward with epidural steroid injection at this point. Will plan on following up 3 to 6 weeks after the injection to see how her symptoms have been affected. Patient encouraged to call with any questions, concerns, or worsening of condition. I spent a total of 45 minutes on the date of this encounter meeting with the patient and reviewing documentation/coordinating care as described in the above note. Plan: Right L4-5 MADELINE Follow-up 3 to 6 weeks after injection This document was produced using [employer]. Please excuse any grammatical or verbal errors. documented in this encounter Plan of Treatment Scheduled Orders Name Type Priority Associated Diagnoses Orde r Schedule EPIDURAL STEROID INJECTION ON THE SPINE WITH FLUOROSCOPY Procedures Routine Lumbar radiculopathy Spondylolisthesis at L4-L5 level Expected: 01/20/2024 (Approximate), Expires: 01/13/2025 documented as of this encounter Procedures Procedure Name Priority Date/Time Associated Diagnosis Comments XR LUMBAR SPINE 4+ VIEWS Routine 01/13/2024 13:49 EST Lumbar pain documented in this encounter Results * XR LUMBAR SPINE 4+ VIEWS (01/13/2024 13:49 EST) Anatomical Region Laterality Modality Computed Radiogr aphy 01/13/2024 13:5 1 EST Impressions 01/14/2024 11:59 EST Slight grade 1 anterolisthesis of L4 on L5. THIS DOCUMENT HAS BEEN ELECTRONICALLY SIGNED BY JOE ALBERTO MD FOR ANY QUESTIONS OR CONCERNS REGARDING THIS REPORT PLEASE CALL [facility] AT [phone] Narrative 01/14/2024 11:59 EST PROCEDURE INFORMATION: Exam: XR Lumbosacral Spine Exam date and time: 01/13/2024 1:51 PM Age: 58 years old Clinical indication: Low back pain, unspecified; Additional info: Low back verses hip pain TECHNIQUE: Imaging protocol: Radiologic exam of the lumbosacral spine. Views: 4 or 5 views. COMPARISON: MR LUMBAR SPINE WO CONTRAST 12/08/2023 6:15 AM FINDINGS: Bones/joints: There is a normal lordosis. There is a slight grade 1 anterolisthesis of L4 on L5. The vertebral bodies maintain their height throughout. The pedicles are intact. There is no abnormal movement on flexion and extension. Soft tissues: Unremarkable. Procedure Note Joe Alberto MD - 01/14/2024 PROCEDURE INFORMATION: Exam: XR Lumbosacral Spine Exam date and time: 01/13/2024 1:51 PM Age: 58 years old Clinical indication: Low back pain, unspecified; Additional info: Low back verses hip pain TECHNIQUE: Imaging protocol: Radiologic exam of the lumbosacral spine. Views: 4 or 5 views. COMPARISON: MR LUMBAR SPINE WO CONTRAST 12/08/2023 6:15 AM FINDINGS: Bones/joints: There is a normal lordosis. There is a slight grade 1 anterolisthesis of L4 on L5. The vertebral bodies maintain their height throughout. The pedicles are intact. There is no abnormal movement on flexion and extension. Soft tissues: Unremarkable. IMPRESSION Slight grade 1 anterolisthesis of L4 on L5. THIS DOCUMENT HAS BEEN ELECTRONICALLY SIGNED BY JOE ALBERTO MD FOR ANY QUESTIONS OR CONCERNS REGARDING THIS REPORT PLEASE CALL [facility] [phone] Shanon Henley PA-C [facility] ORDAnna ADAME Final Result documented in this encounter Visit Diagnoses Diagnosis Lumbar radiculopathy- Primary Thoracic or lumbosacral neuritis or radiculitis, unspecified Spondylolisthesis at L4-L5 level Lumbar pain Lumbago documented in this encounter Care Teams Academic Associate Relationship Specialty Start Date End Date Maria Luisa Valerio MD [address] [place] [id number] PCP - General 12/31/23 documented as of this encounter
--- OUTSIDE RECORDS SUMMARY | 2024-11-17 12:50 | XMS_ITS | Encounter Summary ---
Author Organization [facility] Address [address] [place] [address] Care Team Providers Care Game Agent Name Role Phone Maria Luisa Valerio MD Primary Care Provider [phone] Reason for Visit * Reason Comments Hip Pain Right si pain Encounter Details Date Type Department Care Team (Late st Contact Info) Description 05/07/2024 9:15 EDT Procedure visit [facility] Family Medicine [facility] [address] [place] [address] Maddy Cardoso MD [address] [place] [address] Chronic right SI joint pain (Primary Dx) Social History Tobacco Use Types Packs/Day Years [...] on file documented as of this encounter Progress Notes * Valerie Phelan RN - 05/07/2024 0915 EDT Consent given for audio recording * Maddy Cardoso MD - 05/07/2024 0915 EDT [facility] [place] Procedure Note Subjective: Jenn Borrero is a 58 y.o. female referred by Lindsay Henley for Chief Complaint Patient presents with Hip Pain Right si pain . Procedure Note: Right Sacrotuberous Ligament and Sacroiliac joint injection, ultrasound-guided. Written consent obtained. Timeout performed and site confirmed with patient. Area identified with palpation and confirmed with ultrasound, and prepped with 2 chlorhexidine swab. Under no-touch technique, using a 22g needle, 2 cc 1% lidocaine without epinephrine and 40mg depomedrol were injected around sacrotuberous ligament and into sacroiliac joint under ultrasound guidance. Sterile dressing applied. Patient tolerated the procedure well. No apparent complications. EBL minimal. The patient was counseled on post-injection care, including to anticipate an increase in discomfort for 24-48 hours,ice 20 mins TID x 24 hrs PRN discomfort, NSAIDs PRN discomfort, and to avoid PT and/or exacerbatingactivites for 5 days. Anticipate full effect of the injection will not be appreciated for 3-5 days.Call the office if pain worsens significantly, the joint becomes red/hot, or systemic symptoms develop. Return for with Lindsay Henley as scheduled.. documented in this encounter Plan of Treatment Not on file documented as of this encounter Visit Diagnoses Diagnosis Chronic right SI joint pain- Primary Disorders of sacrum documented in this encounter Administered Medications Inactive Administered Medications - up to 3 most recent administrations Medication Order MAR Action Action Date Dose Rate Site lidocaine (PF) 10 mg/mL (1 %) injection 2 mL 2 mL, intra-articular, NOW X1, 1 dose, On Fri05/07/24 at 1000, RoutineIndications:Chronic right SI joint pain Given 05/07/2024 10:34 EDT 2 mL methylPREDNISolone ACETATE (DEPO-MEDROL) injection 40 mg 40 mg, intra-articular, NOW X1, 1 dose, On Fri05/07/24 at 1000, RoutineIndications:Chronic right SI joint pain Given 05/07/2024 10:33 EDT 40 mg documented in this encounter Care Teams Game Agent Relationship Specialty Start Date End Date Maria Luisa Valerio MD [address] [place] [address] PCP - General 12/31/23 documented as of this encounter
--- OUTSIDE RECORDS SUMMARY | 2024-11-17 12:50 | XMS_ITS | Encounter Summary ---
Author Organization [facility] Address [address] [place] [address] Care Team Providers Care Ornamental Bronze Worker Name Role Phone Bucky Boone MD Primary Care Provider [phone] Maria Luisa Valerio MD Primary Care Provider [phone] Encounter Details Date Type Department Care Team (Latest Contact Info) Description 01/07/2022 Lab Requisition [facility] Pathology & Laboratory Medicine - [facility] [address] [place] [address] Medina Palafox, [place] [address] [facility] [address] [place] [address] Encounter for screening for malignant neoplasm of cervix; Encounter for gynecological examination (general) (routine) with abnormal findings Social History Tobacco Use Types Packs/Day Years [...] Procedure Name Priority Date/Time Associated Diagnosis Comments PAP TEST Today 01/03/2022 14:00 EST Encounter for screening for malignant neoplasm of cervix Encounter for gynecological examination (general) (routine) with abnormal findings HPV DNA DETECTION WITH GENOTYPING, PCR Today 01/03/2022 14:00 EST Encounter for screening for malignant neoplasm of cervix Encounter for gynecological examination (general) (routine) with abnormal findings documented in this encounter Results * HUMAN PAPILLOMAVIRUS (HPV) DETECTION-HIGH RISK TYPES (01/03/2022 14:00 EST) HPV other High Risk types, PCR Negative Negative 01/18/2022 7:16 [facility] Comment:No E6 or E7 mRNA is detected from HPV types 16,18,31,33,35,39,45,51,52,56,58,59,66, and 68 by power plant installer mediated amplification. Papanicolaou smear specimen (specimen) CERVIX UTERI STRUCTURE / Unknown 01/03/2022 14:00 EST 01/16/2022 11:19 EST Medina Palafox ND MICROBIOLOGY - GENERAL ORDERABLES Final Result [facility] [address] [place] [id number] * PAP TEST (01/03/2022 14:00 EST) Specimens A. Cervix and/or Endocervix , ThinPrep Imaging System with Manual Evaluation 01/18/2022 7:16 [facility] Specimen Adequacy Satisfactory for Evaluation - transformation zone component present 01/18/2022 7:16 [facility] General Categorization Negative for intraepithelial lesion or malignancy 01/18/2022 7:16 [facility] Attestation . 01/18/2022 7:16 [facility] at 0716 Clinical History See below 01/18/20 7:16 [facility] HPV The result for the Human Papillomavirus (HPV) Detection-High Risk Types is Negative. No E6 or E7 mRNA is detected from HPV types 16,18,31,33,35,39 ,45,51,52,56,58,5 9,66, and 68 by power plant installer mediated amplification.Sarah ting was performed on specimen [id number] and was resulted on 01/18/2022 0713 EST by JOSE, LAB INSTRUMENT RESULTS IN 01/18/2022 7:16 EST [facility] Performing Lab [facility] 01/18/2022 7:16 EST [facility] Scanned Images 01/18/2022 7:16 EST [facility] Papanicolaou smear specimen (specimen) CERVIX UTERI STRUCTURE / Unknown 01/03/2022 14:00 EST 01/07/2022 10:00 EST us Medina Palafox ND PATHOLOGY ORDERABLES Fi nal Result [facility] [address] [place] [address] documented in this encounter Visit Diagnoses Diagnosis Encounter for screening for malignant neoplasm of cervix Screening for malignant neoplasm of the cervix Encounter for gynecological examination (general) (routine) with abnormal findings documented in this encounter Care Teams Ornamental Bronze Worker Relationship Specialty Start Date End Date Bucky Boone MD [address] [place] [id number] PCP - General 10/05/15 12/30/23 Maria Luisa Valerio MD [address] [place] [address] PCP - General 12/31/23 documented as of this encounter
--- OUTSIDE RECORDS SUMMARY | 2024-11-17 12:50 | XMS_ITS | Encounter Summary ---
[facility] [place] [address] Care Team Providers Care Line Haul Driver Name Role Phone Maria Luisa Valerio MD Primary Care Provider [phone] Encounter Details Date Type Department Care Team (Latest Contact Info) Description 04/14/2023 Travel Social History Tobacco Use Types Packs/Day [...] filedocumented in this encounter Care Teams Line Haul Driver Relationship Specialty Start Date End Date Maria Luisa Valerio MD [address] [place] [id number] PCP - General Family Medicine 03/24/23 documented as of this encounter
--- OUTSIDE RECORDS SUMMARY | 2024-11-17 12:50 | XMS_ITS | Encounter Summary ---
Author Organization [facility] Address [address] [place] [address] Care Team Providers Care Commercial Collector Name Role Phone Maria Luisa Valerio MD Primary Care Provider [phone] Reason for Visit * Reason Comments Follow-up Encounter Details Date Type Department Care Team (Late st Contact Info) Description 02/10/2024 13:00 EDT Telemedicine [facility] Orthopedics & Sport Medicine [address], [address] [place] [address] Paulina Powell MD [address] [place] [address] [address] [place] [address] Right hip pain (Primary Dx) Social History Tobacco Use Types Packs/Day Years Used Date Smoking Tobacco: Never Assessed Comments Unknown Sex and Gender Information Value Date Recorded Sex Assigned at Female 03/04/2024 9:14 EDT Legal Sex Female 18:21 EST Gender Identity Female 12/31/2023 13:23 EST Sexual Orientation Not on file documented as of this encounter Progress Notes * Paulina Powell MD - 02/10/2024 1300 EDT [facility] [place] Today's visit was provided via telephone audio only. The location of the patient: Home The location of the provider: Office Verbal consent: The concept of ???Telemedicine?? has been described to the patient. Patient has been informed of the anticipated benefits and possible risks. Patient understands the information provided regarding telemedicine, has had the opportunity to ask questions about this information, and all questions havebeen answered to patient???s satisfaction. Patient consents for the use of telemedicine in his/her medical care and authorizes the transmission of any relevant medical information to providers and their staff involved in patient???s medical or mental health care. Verbal consent obtained by myself or auxiliary staff: yes. I have determined that an audio-only visit is appropriate due to: Physical exam not indicated based on available information Subjective: Chief Complaint(s): No chief complaint on file. HPI: Jenn Borrero is a pleasant female whom I am speaking with today to review the results of their right hip injection on 12/31/23. Since then, pain was improved for about 3 days and then 4th day pain returned. Lately, it is improved without obvious reason. She met with Lindsay Henley from the Spine team and there is an injection planned with Dr. Scruggs for 03/04. I have reviewed patient's tobacco history: has no history on file for tobacco use. I have reviewed current problem list and current medications. ROS: As above, otherwise negative Objective: Examination: Home Vitals: There were no vitals taken for this visit. Pertinent exam findings: speaking in full sentences, no audible wheeze, and mood and affect appropriate Data reviewed with patient: None new Assessment & Plan: 1. Right hip pain Continue to try to identify the major culprit of her symptoms between the hip joint, bursa and radiculopathy from her spondylolisthesis. She has follow-up with Lindsay planned for after the injection. OK to get me involved if it seems like the hip injection did more than the planned lumbar injection. Patient initiated phone contact with the office: yes. Patient is an established patient (parent, guardian) yes. E/M provided within previous 7 days for same medical assessment: no Anticipate E/M service within 24hrs or next available urgent appointment no. This visit was conducted by telephone. A total of 10 minutes was spent on this encounter on the dayof this encounter. documented in this encounter Plan of Treatment Not on file documented as of this encounter Visit Diagnoses Diagnosis Right hip pain- Primary Pain in joint, pelvic region and thigh documented in this encounter Care Teams Commercial Collector Relationship Specialty Start Date End Date Maria Luisa Valerio MD [address] [place] [address] PCP - General 12/31/23 documented as of this encounter
--- OUTSIDE RECORDS SUMMARY | 2024-11-17 12:50 | XMS_ITS | Encounter Summary ---
Author Organization [facility] Address [address] [place] [address] Care Team Providers Care Volunteer Services Specialist Name Role Phone Maria Luisa Valerio MD Primary Care Provider [phone] Reason for Referral * Radiology Services (Routine/Next Available) - Authorization Not Required Specialty Diagnoses / Procedures Referred By Contac t Referred To Contact Diagnoses Low back pain Procedures FL C-ARM BLOCK/INJECTION IN CLINIC Monisha Scruggs MD [address] [place] [id number] Phone: tel: [place]: [facility] [place]erral ID Status Reason Start Date Expiration Date Visits Requested Visits Authorized [id number] Authorization Not Required 03/02/2024 1 1 Reason for Visit * Radiology Services (Routine/Next Available) - Authorization Not Required Specialty Diagnoses / Procedures Referred By Contac t Referred To Contact Diagnoses Low back pain Procedures FL C-ARM BLOCK/INJECTION IN CLINIC Monisha Scruggs MD [address] [place] [phone] Phone: tel: fax: [facility] [place]erral ID Status Reason Start Date Expiration Date Visits Requested Visits Authorized [id number] Authorization Not Required 03/02/2024 1 1 Encounter Details Date Type Department Care Team (Latest Contact Info) Description 03/04/2024 8:57 EDT - 03/04/2024 23:59 EDT Hospital Encounter [facility] [place] [address] [place] [address] Low back pain Discharge Disposition: Home or Self Care [...] tablet Take by mouth daily as needed. naproxen sodium (ALEVE) 220 mg capsule Take 220 mg by mouth every 12 hours. UNABLE TO FIND Med Name: Medical Cannabis documented as of this encounter Discharge Disposition Disposition Code Departure Means Destination Home or Self Care documented in this encounter Plan of Treatment Not on file documented as of this encounter Procedures Procedure Name Priority Date/Time Associated Diagnosis Comments FL C-ARM BLOCK/INJECTION IN CLINIC Routine 03/04/2024 9:42 EDT Low back pain documented in this encounter Results * FL C-ARM BLOCK/INJECTION IN CLINIC (03/04/2024 9:42 EDT) Narrative 03/04/2024 9:42 EDT This is a non-reportable exam. us Monisha Scruggs MD IMG FLUOROSCOPY ORDERABLES Final Result documented in this encounter Visit Diagnoses Diagnosis Low back pain Lumbago documented in this encounter Care Teams Volunteer Services Specialist Relationship Specialty Start Date End Date Maria Luisa Valerio MD [address] [place] [id number] PCP - General 12/31/23 documented as of this encounter
--- OUTSIDE RECORDS SUMMARY | 2024-11-17 12:50 | XMS_ITS | Encounter Summary ---
Author Organization [facility] Address [facility] [place] [address] Care Team Providers Care Grain Drier Operator Name Role Phone Maria Luisa Valerio MD Primary Care Provider [phone] Reason for Visit * Reason Comments Pre-op Exam Encounter Details Date Type Department Care Team (Late st Contact Info) Description 06/26/2023 8:00 AM EDT Office Visit Obstetrics [place] [address] Maya Lux APRN [facility] [address] Preop examination Social History Tobacco Use Types Packs/Day Years Used Date Smoking Tobacco: Never Smokeless Tobacco: Never Tobacco Cessation:Counseling Given: Not Answered Comments:Smokes marijuana as sleep aid Sex and Gender Information Value Date Recorded Sex Assigned at Not on file Gender Identity Not on file Sexual Orientation Not on file documented as of this encounter Last Filed Vital Signs Vital Sign Reading Time Taken Comments Blood Pressure 135/92 06/26/2023 7:50 AM EDT Pulse 80 06/26/2023 7:50 AM EDT Temperature 35.9 ??C (96.6 ??F) 06/26/2023 7:50 AM ED T Respiratory Rate 16 06/26/2023 7:50 AM EDT Oxygen Saturation 100% 06/26/2023 7:50 AM EDT Inhaled Oxygen Concentration - - Weight 67.1 kg (148 lb) 06/26/2023 7:50 AM EDT Height 160 cm (5' 3) 06/26/2023 7:50 AM EDT Body Mass Index 26.22 06/26/2023 7:50 AM EDT documented in this encounter Progress Notes * Maya Lux APRN - 06/26/2023 8:00 AM EDT Female Pelvic Medicine and Reconstructive Surgery Pre-Operative Visit Date of Visit: 06/26/2023 Planned Surgery Date: 07/09/23 Planned Procedure: vaginal hysterectomy with bilateral salpingectomy; bilateral uterosacral ligament suspension, anterior / posterior colporrhaphy Surgeon: Dr. Archibald Indications/Pre-op Diagnosis: stage 3 uterovaginal prolapse HISTORY OF PRESENT ILLNESS: Ms. Borrero presents for preoperative examination. REVIEW OF SYMPTOMS/FUNCTIONAL STATUS: Chest pain: No Shortness of breath: No Can you walk 1/2 mile or more? Yes Can you go up more than 2 flights of stairs? Yes Patient can dress herself? Yes Prepare meals herself? Yes Have you fallen in the past 6 months? No Have you ever injured yourself in a fall? No Do you ever feel dizzy when you walk? No Do you walk with the use of an assistive device? No Bleeding disorder (h/o nose bleeds, excessive bleeding following a surgical procedure?): No Personal or Family history of blood clots?: No Sexually active?: No Last PAP smear: 2021 NILM, denies hx abnormal Last colonoscopy: fecal occult test, last about 4 years ago Past anesthesia problems?: No Past Medical History: Diagnosis Date Arthritis Back, neck, fingers Bipolar disorder Cystocele with rectocele Past Surgical History: Procedure Laterality Date FINGER SURGERY 1988 KNEE ARTHROSCOPY Left 2002 Social History Tobacco Use Smoking status: Never Smokeless tobacco: Never Tobacco comments: Smokes marijuana as sleep aid Vaping Use Vaping Use: Never used Allergies Allergen Reactions Latex, Natural Rubber Outpatient Medications Marked as Taking for the 06/26/23 encounter (Office Visit) with Maya Lux APRN Medication Sig Dispense Refill lithium 300 mg capsule Take 300 mg by mouth once. Once a day cholecalciferol, Vitamin D3, (Vitamin D3) 50 mcg (2,000 unit) tablet Take by mouth. magnesium 250 mg tablet Take by mouth. lactobacillus rhamnosus, GG, (CULTURELLE) 10 billion cell Capsule Take 1 capsule by mouth daily. EXAM: BP (!) 135/92 (BP Location (NBP): Right arm) Pulse 80 Temp 35.9 ??C (96.6 ??F) Resp 16 Ht 160 cm (5' 3) Wt 67.1 kg (148 lb) SpO2 100% BMI 26.22 kg/m?? A carbon paper coating machine setter is present for the examination. 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 Archibald Indications/Pre-op Diagnosis: stage 3 uterovaginal prolapse Consent form signed & scanned in media. Declines to sign opioid consent form, would not like rx. Anesthesia preference: per anesthesia Current medications and supplements reviewed & reconciled. Written instructions provided. Routine pre- and post-operative guidance reviewed including: Pre-op: no solid food after midnight, clear liquids until 2 hours prior to surgery, chlorhexidine wash (if applicable), and to have a ride home Post-op: nutrition, hydration, pain management, bowel management, return to activity, warning signs& when to call Plan: Advised patient should expect a phone call 1 business day prior to surgery regarding anticipated arrival time. Postoperative appointment scheduled. Maya Lux APRN Division of Female Pelvic Medicine and Reconstructive Surgery * Vera Fishman LNA - 06/26/2023 8:00 AM EDT This patient was seen in the [facility] clinic today. I was present as carbon paper coating machine setter for the sensitive parts of her exam. documented in this encounter Plan of Treatment Not on file documented as of this encounter Visit Diagnoses Diagnosis Preop examination Preoperative examination, unspecified documented in this encounter Care Teams Grain Drier Operator Relationship Specialty Start Date End Date Maria Luisa Valerio MD [address] [place] [address] PCP - General Family Medicine 03/24/23 documented as of this encounter
--- OUTSIDE RECORDS SUMMARY | 2024-11-17 12:50 | XMS_ITS | Encounter Summary ---
Author Organization [facility] [place] [address] Care Team Providers Care Marketing Recruiter Name Role Phone Maria Luisa Valreio MD Primary Care Provider [phone] Encounter Details Date Type Department Care Team (Latest Contact Info) Description 06/26/2023 Travel Social History Tobacco Use Types Packs/Day Years Used Date Smoking Tobacco: Never Smokeless Tobacco: Never Comments:Smokes marijuana as sleep aid Sex and Gender Information Value Date Recorded Sex Assigned at Not on file Gender Identity Not on file Sexual Orientation Not on file documented as of this encounter Plan of Treatment Not on file documented as of this encounter Visit Diagnoses Not on filedocumented in this encounter Care Teams Marketing Recruiter Relationship Specialty Start Date End Date Maria Luisa Valerio MD [address] [place] [id number] PCP - General Family Medicine 03/24/23 documented as of this encounter
--- OUTSIDE RECORDS SUMMARY | 2024-11-17 12:50 | XMS_ITS | Encounter Summary ---
Author Organization [facility] Address [address] [place] [address] Care Team Providers Care Principal Military Analyst Name Role Phone Maria Luisa Valerio MD Primary Care Provider Reason for Referral * Referral (Routine/Next Available) - Closed Specialty Diagnoses / Procedures Referred By Contac t Referred To Contact Pain Medicine Diagnoses Lumbar radiculopathy Spondylolisthesis at L4-L5 level Procedures EPIDURAL STEROID INJECTION ON THE SPINE WITH FLUOROSCOPY Shanon Henley PA-C Phone: tel: fax: [facility] [address] [place] [phone] Phone: tel: Referral ID Status Reason Start Date Expiration Date Visits Re quested Visits Authorized [id number] Closed 01/13/2024 1 1 Reason for Visit * Referral (Routine/Next Available) - Closed Specialty Diagnoses / Procedures Referred By Contac t Referred To Contact Pain Medicine Diagnoses Lumbar radiculopathy Spondylolisthesis at L4-L5 level Procedures EPIDURAL STEROID INJECTION ON THE SPINE WITH FLUOROSCOPY Shanon Henley PA-C Phone: tel: fax: [facility] [address] [place] [phone] Phone: tel: Referral ID Status Reason Start Date Expiration Date Visits Re quested Visits Authorized [id number] Closed 01/13/2024 1 1 Encounter Details Date Type Department Care Team (Latest Contact Info) Description 03/04/2024 8:57 EDT - 03/04/2024 23:59 EDT Hospital Encounter [facility] [address] [place] [address] Monisha Scruggs MD [address] [place] [address] Other spondylosis with radiculopathy, lumbar region (Primary Dx); Lumbar radiculopathy; Spondylolisthesis at L4-L5 level Discharge Disposition: Home or Self Care Social [...] Sign Reading Time Taken Comments Blood Pressure 126/75 03/04/2024 0943 EDT Pulse - - Temperature 36.7 ??C (98.1 ??F) 03/04/2024 0908 EDT Respiratory Rate 16 03/04/2024 0943 EDT Oxygen Saturation 100% 03/04/2024 0943 EDT Inhaled Oxygen Concentration - - Weight 69.4 kg (153 lb) 03/04/2024 0908 EDT Height 158.8 cm (5' 2.5) 03/04/2024 0908 EDT Body Mass Index 27.54 03/04/2024 0908 EDT documented in this encounter Discharge Instructions * Discharge Instructions* Sharon Christianson RN - 03/04/2024 9:35 EDT [facility] Your procedure today was a Lumbar Epidural Steroid Injection The following information should help you over the next few days: For your safety, you need to have someone drive you home today. Please do not drive a car or any motorized equipment for the rest of today. Activities are as tolerated. Plan light activities, nothing to stress or strain the area where you received your injection(s). Remove bandage(s) later today. Watch for signs of infection over the injection sites such as redness, warmth, bleeding, swelling, or drainage. Call if you have a fever greater than 101 degrees, not relieved by Tylenol, or any signs or symptoms of infection. You may take mild pain medications, you can take acetaminophen (Tylenol), ibuprofen (Motrin, Advil,Nuprin, IB, etc) or aspirin as needed for pain, as long as your primary care doctor has indicated no restrictions. Your procedure site may feel sore from the needles placed today. You can use ice to help relieve your symptoms, and it may be left on for 20 minutes at a time. Heat is not recommended as it may causemore swelling and pain. You may also have a flare of your symptoms after your injection. Please call back immediately should you develop: -signs of infection as listed above -increasingly severe neck or back pain -continued numbness or weakness in your arms if you had a neck injection, or in your legs if you had a back injection -loss of bladder/bowel control that is new or unusual *For symptoms listed above call immediately. Our phone number is , or after hours/weekends call [phone], ask them to page tongue carrier anesthesiologist. You will need to provide your return contact number and a doctor will call you back. If your doctor was Dr. Scruggs or Dr. Smith, and you have any of the above complaints and If afterhours or on the weekend, please call [facility] Provider Access line at , ask them to page the on-call Chronic Pain service, you will need to provide your return contact number and a doctor will call you back. 8. If you develop a Headache that is better when you lay down, please call to talk to an anesthesiologist. (After [phone]) 9. A nurse will call you tomorrow if you had one of the procedures listed: Facet Injection, Transforaminal Epidural Steroid Injection, SI Joint, Occipital Nerve Block, or a Peripheral Nerve Block: Please keep track of how you feel over the next 24 hours. We want to know if your regular pain has changed, and how long the pain relief lasts. Try to separate the injection site pain, from your normal pain. Having this information is an important part of your care, keep track of your results with the information below. Significant functional relief = functional improvement: Y__ N__ (Can you do your daily activities any easier? What activities can you do with less pain?) Current Pain: Scale: (1-10) Number of hours of pain relief in first 24 hours 10. A nurse will call you in 3 weeks as part of your follow-up care, it is important that we speak with you. We will want to hear how you are doing. Please keep track of your pain and you daily activities over the next few weeks and note any improvements or changes. Having this information is an important part of your care. documented in this encounter Medications at Time [...] or Self Care documented in this encounter Progress Notes * Monisha Scruggs MD - 03/04/2024 1000 EDT Patient Name: Jenn Borrero : 1965 Date of Service: 03/04/24 Dry Wall Plasterer: Monisha Scruggs MD Interval History: Patient presents today regarding a primary complaint chronic right low back pain and leg pain. Please refer to the referring physicians encounters for full details regarding the patient's pain complaint and workup. The patient reports no recent changes in the character, quality, or distribution of the pain. There are no recent onset of new associated symptoms such as changes in strength, sensation, or bladder control. Current medical records including medications, anticoagulation status, any signs of current infection, and new imaging were reviewed. Injection History: 03/04/2024: L4-L5 MADELINE RPA (?transitional unit) Right intra-articular hip injection 12/31/2023 relief for 1 to 2 days Physical Exam: Vitals: BP (!) 142/91 (BP Cuff Location: Left arm) Temp 36.7 ??C (98.1 ??F) (Oral) Resp 16 Ht158.8 cm (62.5) Wt 69.4 kg (153 lb) SpO2 100% BMI 27.54 kg/m?? General: Patient is alert and appropriate in conversation, no acute distress. Lungs: symmetric chest rise, no evidence of labored breathing Skin: WNL in designated region for procedure. Assessment: Ms. Jenn Borrero is a 58 y.o. female that presents to the pain clinic to undergo an epidural steroid injection for associated diagnoses. 1. Other spondylosis with radiculopathy, lumbar region 2. Lumbar radiculopathy 3. Spondylolisthesis at L4-L5 level Plan: Proceed with a therapeutic L4-L5 Epidural steroid injection. All risks, benefits, and alternatives were thoroughly explained to Ms. Jenn Borrero who verbally communicated understanding of the management plan. Follow up: The patient plans to follow-up with Orthopedic department and we will be available for further evaluation and/or injections as necessary. PROCEDURE: The patient gave informed written consent to proceed with this procedure following a detailed discussion of the risks and benefits associated with an epidural steroid injection. The patient was then placed in the prone position. The skin over the designated areas was prepped and drapped in sterile fashion. A hickman moment was performed with full staff present prior to starting the procedure to identify the patient, verify the procedure being performed, and review allergies. Fluoroscopy was used to identify the aforementioned disc and intervertebral space. The skin and subcutaneous tissues were anesthetized with 1% lidocaine. An 18 guage touhy needle was inserted under fluoroscopic guidance by coaxial technique and advancedtowards the interspace. Two views were used to verify needle tip placement. Loss of resistance with normal saline was used to find the epidural space. One pass was required and there were no paresthesias. Contrast dye was injected under live fluoroscopy demonstrating a typical epidural pattern with no evidence of intravascular or intrathecal injection. After negative aspiration for heme and CSF, 80 mg Depo-Medrol and 2 ml Normal Saline were injected.The needle was then flushed and withdrawn. The patient tolerated the procedure well and there were no apparent complications. The patient was discharged in stable condition with written and verbal discharge instructions. Monisha Scruggs MD 03/04/2024 9:23 * Sharon Christianson RN - 03/04/2024 1000 EDT Dressing CDI, VSS. Steady gait. Home with . documented in this encounter OR Notes * Preprocedure Instructions - Shoshana Batista RN - 03/04/2024 1000 EDT Phone call related to scheduling appointment. Appointment scheduled with on 03/04/24, please arrive at 9am, located at [facility] . Reminded patient of the following items: -Patient must have a trailer driver to be present at drop off and brick picker for their appointment. They may not take a bus or taxi. -Patient needs to arrive 60 minutes ahead of procedural start time. Please check in at patient registration, before coming to the same day surgery waiting room. (Nurse will provide time of arrival.) -Please arrive with clean skin, do not apply any lotions, perfumes, creams or lidocaine patches. Please wear loose fitting, comfortable clothing, with elastic waistband if possible. -Patient must be infection free and off antibiotics for 14 days prior to appointment with written clearance from MD, also no active or open wounds. -Patient must contact clinic if any recent exposure to known positive Covid-19 with or without symptoms. -All vaccines should be 2 weeks before or after appointment for procedures that involve steroids. -Patient should not have had any oral steroids, or other steroid injections anywhere else in their body within the past 4-6 weeks. -Patient should notify our clinic if they have a scheduled appointment, or have recently been seen at any other pain clinic. -If patient is diabetic, inform them that if their blood sugar is greater than 250mg/dL the day of procedure, we will not be able to perform steroid injection. If blood sugars are running high, they should contact their PCP to discuss management before their appointment. -If patient is on coumadin, patient will need to get order from prescribing provider or PCP to haveblood draw for PT/INR before appointment. Pain Clinic providers will not accept fingerstick results. -Please notify our staff if you have a pacemaker or defibrillator. Procedures may require an adjustment to current medications, which include vitamins or supplements. -We require written approval from your prescribing provider (primary care doctor, neurologist or director call) before stopping anticoagulation medication (this includes ASPIRIN). Procedural Safety Medications and Fasting Instructions as applicable, lists exceptions below: HOLD Aleve X4 days (last dose Friday02/28/24) HOLD Over the counter vitamins/supplements (last dose Fri02/25/24) okay to continue magnesium Continue all other medications as prescribed. Patient advised to call our clinic: -If they develop any new symptoms, or exposure to someone who is sick with covid-19, flu, or cold symptoms. -Concerns for infection or are prescribed antibiotics. -Skin issues such as new or non-healing wounds, open areas or rashes. -Prescribed new medications. -If they need to reschedule appointment. If they have any questions regarding medication holds, they should contact the clinic to speak witha nurse. Directions and clinic phone number [phone] were provided to patient as needed. documented in this encounter Miscellaneous Notes * Addendum Note - Ileana Lanier RN - 03/04/2024 1000 EDTEncounter addended by: Ileana Lanier RN on: 04/06/2024 10:27 Actions taken: Contacts section saved, Flowsheet accepted documented in this encounter Plan of Treatment Scheduled Orders Name Type Priority Associated Diagnoses Orde r Schedule EPIDURAL STEROID INJECTION ON THE SPINE WITH FLUOROSCOPY Procedures Routine Lumbar radiculopathy Spondylolisthesis at L4-L5 level 1 Occurrences starting 03/04/2024 until 03/04/2024 documented as of this encounter Visit Diagnoses Diagnosis Other spondylosis with radiculopathy, lumbar region- Primary Lumbar radiculopathy Thoracic or lumbosacral neuritis or radiculitis, unspecified Spondylolisthesis at L4-L5 level documented in this encounter Administered Medications Inactive Administered Medications - up to 3 most recent administrations Medication Order MAR Action Action Date Dose Rate Site iohexoL (OMNIPAQUE 300) injection 2 mL 2 mL, epidural, NOW X1, 1 dose, On Tatyana 03/04/24 at 1000, Routine, Intraprocedure Given by Other 03/04/2024 9:39 EDT 2 mL methylPREDNISolone ACETATE (DEPO-MEDROL) injection 80 mg 80 mg, epidural, NOW X1, 1 dose, On Tatyana 03/04/24 at 1000, Routine, Intraprocedure Given by Other 03/04/2024 9:39 EDT 80 mg documented in this encounter Discontinued Medications Medication Sig Discontinue Reason Start Date End Da te ibuprofen (MOTRIN) 600 mg tablet Take 1 Tablet by mouth every 6 hours as needed. Alternate therapy 07/09/2023 02/17/2024 documented as of this encounter Historical Medications * This list may reflect changes made after this encounter. naproxen sodium (ALEVE) 220 mg capsule Take 220 mg by mouth every 12 hours. added in this encounter Care Teams Principal Military Analyst Relationship Specialty Start Date End Date Maria Luisa Valerio MD [address] [place] [id number] PCP - General 12/31/23 documented as of this encounter
--- OUTSIDE RECORDS SUMMARY | 2024-11-17 12:50 | XMS_ITS | Encounter Summary ---
Author Organization [facility] Address [address] [place] [address] Care Team Providers Care Wrister Name Role Phone Bucky Boone MD Primary Care Provider [phone] Encounter Details Date Type Department Care Team (Late st Contact Info) Description 03/26/2016 Results Only [facility] [phone] Diana Oliveira MD [address] [facility] [address] [place], [place] [id number] Social History Tobacco Use Types Packs/Day Years [...] Name Priority Date/Time Associated Diagnosis Comments PAP TEST- RESULT ONLY Routine 03/26/2016 0:00 EDT documented in this encounter Results * PAP TEST- RESULT ONLY (03/26/2016 0:00 EDT) Pathology Report: CYTOPATHOLOGY REPORT Reports generated via electronic interface contain original data; however they are lacking the format of the original report. Caution should be taken when reading/interpreti ng unformatted reports. Name: ? JERRY MARISELA ? Accession #: ? [id number] ? : ? 1965 (Age: 50) ??F ?Collect Date: ? 03/26/2016 ? Location: ? [facility] ? Receive Date: ? 03/28/2016 ? Provider: DIANA OLIVEIRA MD Copy to: ? Final Report SPECIMEN ADEQUACY ? Satisfactory for Evaluation - assessment of transformation zone component not applicable ( e.g. atrophy, vaginal sample, hysterectomy) GENERAL CATEGORIZATION ? Negative for Intraepithelial Lesion or Malignancy ?? Other: Additional clinical information: No Abnormal pap Specimen/Source: ??Pap Test, Cervix/Endocervix, ThinPrep Imaging System with manual evaluation Document reviewed and electronically signed by: ? SEN Herrera(ASCP) ? Report ??Date: 04/09/2016 10:17 HPV with Pap Test ? Date Ordered: ? 04/09/2016 ? Status: ?? Signed Out ?Date Complete: ? 04/11/2016 ? By: ??System Interface ? Date Reported: ? 04/11/2016 ? Interpretation RESULT: Negative for HPV. No E6 or E7 mRNA is detected from HPV types 16,18,31,33,35, 39,45,51,52,56,58, 59,66, and 68 by stakes player mediated amplification. Comments Document reviewed and electronically signed by: ? System Interface ? Report date: 04/11/2016 By the signature above, the attending physician certifies that he/she has personally conducted a gross and/or microscopic examination of the described specimens and rendered or confirmed the above diagnosis. End of Report [facility] 03/26/2016 03/28/2016 us Diana Oliveira MD PATHOLOGY ORDERABLES Final Resul t [facility] [address] [place] [address] documented in this encounter Visit Diagnoses Not on filedocumented in this encounter Care Teams Wrister Relationship Specialty Start Date End Date Bucky Boone MD [address] [place] [address] PCP - General 10/05/15 12/30/23 documented as of this encounter
--- OUTSIDE RECORDS SUMMARY | 2024-11-17 12:51 | XMS_ITS ---
Author Organization Unknown Address [address] [place] [phone] Phone Care Team Providers Care Pari Mutuel Ticket Cashier Name Role Phone NORBERTO ORELLANA Attending Unavailable Results XR FOOT 3V LT* - Completed: 08/12/2023 11:48 LOINC: [facility] [place], [place] [address] PACS CHIEF DESIGN DRAFTER REPORT Patient Name: AMRISELA EDWARDS MRN: Sex: : Age: [id number] F 1965 58 Account: Accession: Admit: StayType: [id number] 08/12/2023 O/P Ordered: Order ID: Submitted: Ordering Provider: 08/12/2023 11:32 [id number] KT REYNA THORNTON Completed: Technologist: Resulted: 08/12/2023 11:48 SLG 08/12/2023 19:36 Study Description: XR FOOT 3V LT Study Reason: LT FOOT PAIN 3Images were obtained. COMPARISON: None FINDINGS: There is no evidence of fracture nor diastasis of the Lisfranc joint. No osseous lesions nor erosions and no radiopaque foreign body evident. No degenerative changes evident in the metatarsal and tarsometatarsal joints. No pes planus. Small inferior calcaneal spur noted. IMPRESSION: No significant osseous findings in the foot. Report Digitally Signed by Sergo Chinchilla on 08/12/2023 07:36 PM EDT Social History Type Status Start Date End Date Code Code Syst em Smoking History Never smoker (Never Smoked) [id number] SNOMED CT Sex Female Assessment You had the following problems:CONTUSION OF THIGHCONTUSION OF LOWER LEG Hospital Discharge Instructions Should you have any questions prior to discharge, please contact a member of your healthcare team. If you have left the hospital and have any questions, please contact your primary care physician. Reason For Referral No Data Found Problems Problem Start Date Resolved Date Status Code Code System CONTUSION OF THIGH active S NOMED-CT CONTUSION OF LOWER LEG active SNOMED-CT Allergies and Adverse Reactions Allergy Substance Reaction Severity Start Date Concern Status Co de Code System No Known Drug Allergies Moderate Active 506574993 SNOMED-CT Plan of Treatment US EXTREMITY 08/28/2023 MM SCREEN BILAT 08/28/2023 LAB DRAW 15MIN 10/09/2021 Encounters Encounter Diagnosis Start Date Code Code Sys tem 08/12/2023 [id number] SNOMED-CT Personal Care Team Section Performer Name Performer Role Active Date Inactive Da te
--- OUTSIDE RECORDS SUMMARY | 2024-11-17 12:51 | XMS_ITS ---
Author Organization Unknown Address [address] [place] [phone] Phone Care Team Providers Care Program Development Manager Name Role Phone BOB CARREROAH Asia Attending Unavaila ble NORBERTO REYNA Primary Unavailable Social History Type Status Start Date End Date Code Code Syst em Smoking History Never smoker (Never Smoked) [id number] SNOMED CT Sex Female Assessment You had [...] System No Known Drug Allergies Moderate Active 015637474 SNOMED-CT Plan of Treatment US EXTREMITY 08/28/2023 MM SCREEN BILAT 08/28/2023 LAB DRAW 15MIN 10/09/2021 Encounters Encounter Diagnosis Start Date Code Code Sys tem Localized swelling of right upper limb 08/26/2023 10 [id number] SNOMED-CT Personal Care Team Section Performer Name Performer Role Active Date Inactive Da te
--- OUTSIDE RECORDS SUMMARY | 2024-11-17 12:51 | XMS_ITS ---
Author Organization Unknown Address [address] [place] [phone] Phone Care Team Providers Care Seal Mixer Name Role Phone NORBERTO ORELLANA Attending Unavailable Results MM SCREENING BILAT MAMMO W T MARIAMA W CAD - Completed: 08/28/2023 16:05 LOINC: [facility] [place], [place] [address] PACS QUALITY MANAGEMENT COORDINATOR REPORT Patient Name: MARISELA EDWARDS MRN: Sex: : Age: [id number] F 1965 58 Account: Accession: Admit: StayType: [id number] 08/28/2023 O/P Ordered: Order ID: Submitted: Ordering Provider: 08/28/2023 15:44 [id number] KT REYNA THORNTON Completed: Technologist: Resulted: 08/28/2023 16:05 [facility] 08/28/2023 17:14 Study Description: MM SCREENING BILAT MAMMO W MANUEL W CAD Study Reason: Screening Comparisons: Comparison is made with prior examinations. FINDINGS: Mammography/Tomosynthesis: Masses/Architectural Distortion: There is a stable ovoid nodule in the medial central left breast. No suspicious or new nodules or areas of architectural distortion are identified. Microcalcifictions: No suspicious pleomorphic-type are seen. Skin Thickening/Nipple Retraction: None. IMPRESSION: 1. No evidence of malignancy is noted. 2. Unless there is more urgent need, follow-up screening mammography is recommended, as per [place] [employer] guidelines. BI-RADS Category 2, Benign Findings BI_RADS Density Category B: Scattered areas of fibroglandular density Breast density Category C or D implies that the patient has dense breast tissue. Dense breast tissue can make it harder to find cancer on a mammogram. Dense breast tissue is also associated with an increased risk of breast cancer. This information about the result of the mammogram report was provided to the patient to raise their awareness. Use this report when you speak with the patient about their risks for breast cancer, which includes their family history. At that time, you may recommend additional screening tests (Ultrasound or MRI) as these tests may add significant information. A negative radiographic report should not delay biopsy if a dominant or clinically suspicious mass is present. Up to ten percent of cancers are not identified on mammography. A negative report may reinforce clinical impression. Adenosis and dense breasts may obscure an underlying neoplasm. False positive reports average 6 to 10%. Patient will receive a letter notifying them of these results. Report Digitally Signed by Sami Gilman on 08/28/2023 05:14 PM EDT US EXTREMITY LIMITED NON VAS CULAR - Completed: 08/28/2023 16:31 LOINC: [facility] [place], [place] [address] PACS QUALITY MANAGEMENT COORDINATOR REPORT Patient Name: MARISELA EDWARDS MRN: Sex: : Age: [id number] F 1965 58 Account: Accession: Admit: StayType: [id number] 08/28/2023 O/P Ordered: Order ID: Submitted: Ordering Provider: 08/28/2023 15:44 [id number] REYNA FLAHERTY Completed: Technologist: Resulted: 08/28/2023 16:31 [facility] 08/28/2023 16:37 Study Description: US LMTD JTNONVASC XTR STRUX Study Reason: SOFT TISSUE MASS FINDINGS: Sonographic evaluation of the left thigh was performed. FINDINGS: In the area of palpable abnormality in the lateral aspect of the left upper thigh there is a 5.7 x 1.5 x 5.8 cm fat density mass most consistent with a lipoma. No suspicious cystic or solid masses are seen sonographically. IMPRESSION: Findings most suggestive of a lipoma. Report Digitally Signed by Sami Gilman on 08/28/2023 04:37 PM EDT Social History Type Status Start Date End Date Code Code Syst em Smoking History Never smoker (Never Smoked) [id number] SNOMED CT Sex Female Assessment You had [...] System No Known Drug Allergies Moderate Active 190888889 SNOMED-CT Plan of Treatment US EXTREMITY 08/28/2023 MM SCREEN BILAT 08/28/2023 LAB DRAW 15MIN 10/09/2021 Encounters Encounter Diagnosis Start Date Code Code Sys tem Screening mammography 08/28/2023 [id number] SNOMED -CT Personal Care Team Section Performer Name Performer Role Active Date Inactive Da roger
--- OUTSIDE RECORDS SUMMARY | 2024-11-17 12:52 | XMS_ITS ---
Author Organization Unknown Address [address] [place] [phone] Phone Care Team Providers Care Guest Services Lead Name Role Phone NORBERTO ORELLANA Attending Unavailable Results XR HIPS BILAT 3V OR 4V - Com pleted: 10/13/2023 09:04 LOINC: [facility] [place], [place] [address] PACS INDUSTRY ANALYST REPORT Patient Name: MARISELA EDWARDS MRN: Sex: : Age: [id number] F 1965 58 Account: Accession: Admit: StayType: [id number] O/P Ordered: Order ID: Submitted: Ordering Provider: 10/13/2023 08:39 [id number] KT REYNA THORNTON Completed: Technologist: Resulted: 10/13/2023 09:04 KXR 10/13/2023 09:10 Study Description: XR HIPS BILAT 3V OR 4V Study Reason: BILAT HIP PAIN 3 Views TECHNIQUE: 2D digital imaging was performed. COMPARISON: Study Description: XR HIPS BILAT 3V OR 4V Study Reason: BILAT HIP PAIN Technique: 2D digital imaging was performed. 3 views were obtained. COMPARISON: 11 June 2012 FINDINGS: Bones: No acute fractures present. Old fracture visible right ischial tuberosity. No bony destructive lesion is seen. Joints: No dislocation is present. Hip joint spaces are maintained. No significant periarticular spurring. Mild degenerative changes of the SI joints. Soft tissues: Unremarkable. IMPRESSION: No acute abnormality. FINDINGS: Report Digitally Signed by Radha De Jesus on 10/13/2023 09:10 AM EST Social History Type Status Start Date End Date Code Code Syst em Smoking History Never smoker (Never Smoked) 606370145 SNOMED CT Sex Female Assessment You had [...] System No Known Drug Allergies Moderate Active 566049925 SNOMED-CT Plan of Treatment US EXTREMITY 08/28/2023 MM SCREEN BILAT 08/28/2023 LAB DRAW 15MIN 10/09/2021 Encounters Encounter Diagnosis Start Date Code Code Sys tem Pain in left hip 10/13/2023 SNOMED-CT Personal Care Team Section Performer Name Performer Role Active Date Inactive Da te
[2024-11-17 15:12] LABS: BUN 21 mg/dL (7-18); CREATININE 1.2 mg/dL (0.55-1.02); Calcium 10.4 mg/dL (8.5-10.1); Chloride 107 mmol/L (98-107); Glucose 102 mg/dL (74-106); Potassium 4.5 mmol/L (3.5-5.1); Sodium 141 mmol/L (136-145)
== END 2024-11-17 12:49 | disposition home or self-care (01) ==
LOC: NCHCN 12:48
PROVIDERS: PCP Family Medicine; Visit Provider Family Medicine
DX: N18.9 Chronic kidney disease, unspecified (principal)
CPT/HCPCS: 80048

== ENCOUNTER 2025-04-29 14:00 | Outpatient (REF) | payer BC, SELFPAY ==
[2025-04-29 14:53] LABS: Anion Gap 8.6 mmol/L (3-11); BUN 20 mg/dL (7-18); CO2 26.4 mmol/L (21.0-32.0); CREATININE 1.1 mg/dL (0.55-1.02); Calcium 10.2 mg/dL (8.5-10.1); Calculated LDL 137 mg/dL (<100); Chloride 106 mmol/L (98-107); Cholesterol 230 mg/dL (<200); Estimated GFR 57.17 (mL/min/1.73m2); Glucose 93 mg/dL (74-106); HDL Cholesterol 81 mg/dL (>or=50); Potassium 4.2 mmol/L (3.5-5.1); Sodium 141 mmol/L (136-145); TSH (W/Ref FT4) 0.81 uIU/mL (0.36-3.74); Triglyceride 62 mg/dL (<150)
[2025-04-29 15:14] LABS: Lithium 0.6 mmol/L (0.6-1.2)
== END 2025-04-29 14:01 | disposition home or self-care (01) ==
LOC: NCHCN 14:00
PROVIDERS: PCP Family Medicine; Visit Provider Family Medicine
DX: F31.9 Bipolar disorder, unspecified (principal); N18.9 Chronic kidney disease, unspecified; Z00.00 Encounter for general adult medical examination without abnormal findings
CPT/HCPCS: 80048; 80061; 80178; 84443

== ENCOUNTER 2025-10-26 09:51 | Outpatient (REF) | payer BC, SELFPAY ==
[2025-10-26 14:50] LABS: Lithium 0.60 mmol/L (0.60-1.20)
[2025-10-26 14:51] LABS: Anion Gap 8 mmol/L (3-11); BUN 20 mg/dL (9-23); CO2 27.0 mmol/L (20.0-31.0); Calcium 10.2 mg/dL (8.3-10.6); Chloride 107 mmol/L (98-107); Glucose 100 mg/dL (74-106); Potassium 3.9 mmol/L (3.5-5.1); Sodium 142 mmol/L (136-145)
== END 2025-10-26 09:52 | disposition home or self-care (01) ==
LOC: NCHCN 09:51
PROVIDERS: PCP Family Medicine; Visit Provider Family Medicine
DX: F31.9 Bipolar disorder, unspecified (principal); N18.9 Chronic kidney disease, unspecified
CPT/HCPCS: 80048; 80178